=== PATIENT | male | born 1985 | race Caucasian/White ===

== ENCOUNTER 2025-01-14 10:35 | Outpatient (AMB) | payer OTHER, SELFPAY ==
[2025-01-14 10:43] VITALS: PULSE 116; O2SAT 99; BMI 27.3
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
--- OUTSIDE RECORDS SUMMARY | 2025-01-14 12:12 | XMS_ITS | Data Portability ---
Author Organization [facility] Address [address] [place] [address] Care Team Providers Care Instructor Adjunct Pharmacy Technician Name Role Phone EFREN BARNARD Primary Care Provider EFREN BARNARD Referring Provider [phone] Assessment Encounter Date Assessment Date Assessment LastModified by Organization Details LastModified Time 11/18/2020 11/18/2020 Assessment: 1. Left shoulder proximal biceps tendinitis 2. Left shoulder slap tear, subacromial bursitis /impingement Plan: we discussed today's clinical findings as well as treatment options moving forward at this point the majority of his pain seems to be related to his proximal biceps tendon we discussed moving forward with a proximal biceps tendon sheath injection which he elected to proceed with. We will see him back in six weeks to assess his response to this if he fails to respond to this well we could consider further injections or possibly updating his imaging his last MRI was in 2018. [email or web address] Not available 11/18/2020 13:48:52 Plan of Treatment Reminders Order Date Submit Date Provider Last Modified By Organization Details Last Modified Time Details Appointments None record ed. Lab None record ed. Referral None record ed. Procedures None record ed. Surgeries None record ed. Imaging None record ed. Medication Orders None record ed. Patient TargetsNo targets recorded. Patient InstructionsNo instructions recorded. Reason for Referral None Reported. Problems Name Problem SNOMED Code Status Onset Date Resolution Date Notes Provider Name and Address Organization Details Recorded Time Tendonitis of long head of biceps brachii of left shoulder Active 2020 Anupam Joe, [facility] [address] [facility], [place], [address], [facility] 13:49:17 Problem Notes None recorded. Procedures Surgical History Date Name Laterality Status Provider Name and Address Organization Details Recorded Time Test Interpretation completed POP Valadez [address] [place], [address], [facility] 11/18/2020 13:48:09 021 [facility] Inj/Asp Major Left completed POP Valadez [address] [place], [address], [facility] 11/18/2020 13:51:28 Imaging Results None recorded. Procedure Notes None recorded. Medical Equipment None Reported. Vitals Date Recorded Body height Body weight Provider Name and Address Organization Details Last Updated DateTime 07/19/2023 182.9 cm 211889.6 g Not Available Capsule 07/03 17:57:39 Social History None recorded. Functional Status None recorded. Mental Status None recorded. Family History Nothing Reported. Medical History No medical history recorded. Past Encounters Encounter ID Performer Location Encounter Start Date Encounter Closed Date Diagnosis/Indication Diagnosis SNOMED-CT Code Diagnosis ICD10 Code Diagnosis Note [id number] Tahir Hicks MD [facility] [address] [place] [address] 11/18/2020 09:51:48 11/19/2020 10:12:35 Tendonitis of long head of biceps brachii of left shoulder [id number] 66254 M75.22 Health Concerns Section Related Observation LastModified by Organization Detai ls LastModified Time None Recorded Concern Status LastModified by Organization Details LastModified Time None Recorded Advance Directives Directive None Recorded Payers Encounter Date Sequence Insurance Name Policy Number Policy Rutledge Covered Member ID Rutledge Member ID Guarantor Name 11/18/2020 1 [facility] [place] [id number] Hubert Scherer [id number] Hubert Scherer Notes Date Note Type Note Provider Name and Address Organization Details Recorded Time 11/18/2020 text/html Diagnosis:1. Lef t shoulder proximal biceps tendinitis2. Left shoulder slap tear, subacromial bursitis /impingement Previous Surgeries:1. Left shoulder arthroscopy with anterior labral repair 2016 outside orthopedic [place] Date of Injury: History of Present Illness:Hubert returns to clinic today for continued evaluation of his left shoulder we have seen him in the past he has done well with cortisone injections involving the subacromial space. More recently he was out shoveling a lot of snow this exacerbated his left shoulder pain he had x-rays at an outside facility which he brought with him today. He manages symptoms conservatively with oral anti-inflammatories and activity modification. Anupam Joe, [facility] [address] [facility] [facility], [place], [address], [facility] [place] 11/18/2020 13:52:06
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
--- OUTSIDE RECORDS SUMMARY | 2025-01-14 12:12 | XMS_ITS ---
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 APPOINTMENT 01/23/2025 11:00 [facility] 3 INPATIENT APPOINTMENT 01/25/2025 13:00 SPR PACT 3 PA INPATIENT APPOINTMENT 3. DIETARY RESTRICTIONS: none; healthy eating habits reinforced; fat/chol/sodium restricted 4. PHYSICAL ACTIVITY RESTRICTIONS: None (i.e., to tolerance). IX. Competence: No formal competency exam to handle VA funds was conducted at this time. /nahed/ FABIO ARMENTA DO Psychiatry Signed: 01/04/2025 10:39 Receipt Acknowledged By: 01/09/2025 08:23 /nahed/ JAIRO HOLLINGSWORTH NP NURSE PRACTITIONER FABIO ARMENTA [facility] Jan 02, 2025 02:16 PM PREVENTIVE MEDICINE NURSING NOTE: LOCAL TITLE: CLINICAL REMINDERS/NURSING STANDARD TITLE: PREVENTIVE MEDICINE NURSING NOTE DATE OF NOTE: JAN 02, 2025@14:16 ENTRY DATE: JAN 02, 2025@14:16:16 AUTHOR: KELVIN NASH COSIGNER: URGENCY: STATUS: COMPLETED Medication Reconciliation: Discharge JLV Link Data on this list may not be complete. Please check JLV. Allergies/ADRs (Tool #5) FACILITY ALLERGY/ADR -------- THEODORA LOPEZ [facility] PENICILLIN [facility] PENICILLIN [facility] WSN [facility] PENICILLIN Med Recon NoGlossary (Tool #1) INCLUDED IN THIS LIST: Alphabetical list of active outpatient prescriptions dispensed from this NH (local) and dispensed from another NH or [facility] facility (remote) as well as inpatient orders (local pending and active), local clinic medications, locally documented non-VA medications, and local prescriptions that have or been discontinued in the past 90 days. Non-VA Meds Last Documented On: Data not found NOTE The display of VA prescriptions dispensed from another NH or [facility] facility (remote) is limited to active outpatient prescription entries matched to National Drug File at the originating site and may not include some items such as investigational drugs, compounds, etc. NOT INCLUDED IN THIS LIST: Medications self-entered by the patient into personal health records (i.e. [employer]ek[employer]) are NOT included in this list. Non-VA medications documented outside this NH, remote inpatient orders (regardless of status) and remote clinic medications are NOT included in this list. The patient and provider must always discuss medications the patient is taking, regardless of where the medication was dispensed or obtained. OUTPT CLONIDINE HCL 0.1MG TAB (Status = Pending) TAKE ONE TABLET BY MOUTH NOW ANA given for opiate w/d in walkin Login Date: 01/02/25 Qty/Days Supply: 10/03 Refills Ordered: 0 INPT CLONIDINE HCL 0.1MG TAB (Status=Discontinued) 0.1MG BY MOUTH EVERY FOUR HOURS NEEDED FOR SYMPTOMS OF OPIATE WITHDRAWAL: HOLD FOR SBP LESS THAN 100 OR DBP LESS THAN 60 OR PULSE LESS THAN 60. Indication: OPIATE WITHDRAWAL SYMPTOMS <AUTO DC> INPT DICYCLOMINE HCL 10MG CAP (Status=Discontinued) 10MG BY MOUTH EVERY SIX HOURS NEEDED FOR GI SPASM Indication: FOR IRRITABLE COLON <AUTO DC> BCMA ORDER LAST ACTION: 01/02/25 13:20 GIVEN INPT IBUPROFEN 600MG TAB (Status=Discontinued) 600MG BY MOUTH EVERY SIX HOURS NEEDED FOR PAIN OR FEVER Indication: FOR PAIN <AUTO DC> BCMA ORDER LAST ACTION: 01/02/25 13:21 GIVEN INPT LOPERAMIDE HCL 2MG CAP (Status=Discontinued) 4MG BY MOUTH ONE TIME NEEDED AT ONSET OF DIARRHEA. Indication: OPIATE WITHDRAWAL DIARRHEA <AUTO DC> BCMA ORDER LAST ACTION: 01/02/25 13:20 HELD INPT LOPERAMIDE HCL 2MG CAP (Status=Discontinued) 2MG BY MOUTH EVERY TWO HOURS NEEDED AFTER EACH UNFORMED STOOL (after initial 4MG dose). DO NOT EXCEED 16MG PER DAY. Indication: OPIATE WITHDRAWAL DIARRHEA <AUTO DC> SUPPLIES On patient discharge, the following medication changes were made: Medications discontinued: Enter each medication (with dose and frequency) on separate lines: Noted above Medications changed: Enter each medication (with dose and frequency) on separate lines: Noted above New Medications: Enter each medication (with dose and frequency) on separate lines: Noted above /gabriel Nash RN Signed: 01/02/2025 14:17 KELVIN NASH [facility] Jan 02, 2025 02:13 PM NURSING NOTE: LOCAL TITLE: [facility] SKIN INSPECTION/ASSESSMENT STANDARD TITLE: NURSING NOTE DATE OF NOTE: JAN 02, 2025@14:13 ENTRY DATE: JAN 02, 2025@14:13:49 AUTHOR: KELVIN NASH EXP COSIGNER: URGENCY: STATUS: COMPLETED Assessment Type: INITIAL SKIN INSPECTION/ASSESSMENT SKIN INSPECTION: Skin Color: Usual for ethnicity Skin Temperature: Warm Skin Moisture: Normal Skin Turgor: Elastic (normal/immediate) Henri Skin Assessment: The patient's Henri Scale Score is 21. The patient is considered not at risk for development of pressure ulcers/injuries. Sensory perception -- ability to respond meaningfully to pressure-related discomfort No impairment. Moisture -- degree to which skin is exposed to moisture Rarely moist. Activity -- ability to change and control body position Walks frequently. Mobility -- ability to change and control body position No limitation. Nutrition -- usual food intake patterns Excellent. Friction and shear Problem. INTERVENTIONS: The pressure injury interventions were not needed - patient/resident is not at risk. /gabriel Nash RN Signed: 01/02/2025 14:14 KELVIN NASH [facility] Jan 02, 2025 02:12 PM NURSING INPATIENT ADMISSION EVALUATION NOTE: LOCAL TITLE: ADMIT 2 PHYSICAL EXAM NOTE/NSG STANDARD TITLE: NURSING INPATIENT ADMISSION EVALUATION NOTE DATE OF NOTE: JAN 02, 2025@14:12 ENTRY DATE: JAN 02, 2025@14:12:54 AUTHOR: KELVIN NASH EXP COSIGNER: URGENCY: STATUS: COMPLETED ACUTE/CHRONIC CARE DYSPHAGIA SCREEN Part 4 - Oral Screen - check all that apply To be Completed on all Patients/Residents within 24 hours of Admission. Has own natural teeth Note specific assistance if an required: Mouth Moist Height: 72 in [182.9 cm] (01/02/2025 09:48) Weight: 198 lb [89.81 kg] (01/02/2025 09:48) BMI: 26.9 Vitals Enter at: Jan 02, 2025@09:48:46 BP: 113/72 P: 89 R: 16 T: 98.6 Does the patient have any visual or hearing impairment No [ ] visually impairment [ ] hearing impairment Does the patient utilize any assistive devices No [ ] Glasses [ ] contacts [ ] Hearing Aids Does the patient have them with them for use Does the Patient exhibit any following: [ ]Shortness of breath, [ ]Cough [ ]Sputum [ ]Night Sweats [ ]Chest pain [ ] Palpitations Are the lungs clear to auscultation? Are heart sounds easily heard? Are there any additional heart sounds? Is capillary refill less than 3 seconds? Are the radial pulses present? ELIMINATION PATTERN LAST BM: Usual Bowel Pattern: No Problem Usual Urinary Pattern Abdomen: Symmetrical, Soft Bowel Sounds: Mobility Assessment: Paralysis Weakness Amputation Devices ROM Gait Balance Muscle mass/strength Describe: ANY RECENT DECLINE IN PRIOR LEVEL OF FUNCTIONING MUST INITIATE A REQUEST FOR REHABILITATION SERVICES Did the patient come from a shelter home/skilled nursing/ assisted living? No Is the patient going to a shelter home/skilled nursing/assisted living? No Is the patient completely independent with activities of daily living? (If no, initiate weekly ADL) Yes IM - Immunizations No data available SHF - Health Factor Select No data available for: V1-Influenza Vaccine GIven At Other Site V1-Influenza Vaccine Refused Inactivate Influenza Immunization V1-Allergy To Eggs V1-Allergy To Influenza Vaccine V1-Current Febrile Illness V1-Pneumovax Refused Pneumovax GIven At Other Site Inactivate Pneumococcal Vaccine V1-Allergy To Pneumovax TB Status V1-Immunization Contraindication V1-VAccine Refusal ST - Skin Tests No data available SCL2 - T-SPOT LAB TEST No data available for: U-[id number] (o) T-SPOT-PNLA T-SPOT-PNLB N-[id number] M-[id number]-[id number] /nahed/ Kelvin Nash RN Signed: 01/02/2025 14:13 KELVIN NASH [facility] [place] [facility] Jan 02, 2025 02:02 PM MENTAL HEALTH DIAGNOSTIC STUDY NOTE: LOCAL TITLE: MENTAL HEALTH DIAGNOSTIC STUDY STANDARD TITLE: MENTAL HEALTH DIAGNOSTIC STUDY NOTE DATE OF NOTE: JAN 02, 2025@14:02:27 ENTRY DATE: JAN 02, 2025@14:02:27 AUTHOR: OLY YUAN EXP COSIGNER: URGENCY: STATUS: COMPLETED Brief Addiction Monitor - Revised Date Given: 01/02/2025 Clinician: Oly Yuan Location: [address] [place]: AshleyHubert, Jr SSN: [id number] : Jan ([birth year]) Gender: Male Clinical Subscales Use: 30 Items 4, 5, 6. A high score indicates more use, range is 0 to 90. If a patient scores a 1 or greater, it calls for further assessment and clinical attention, e.g., consider addition/change of pharmacotherapy or psychosocial intervention. Risk Factors: 119 Items 1, 2, 3, 8, 11, 15. A high score indicates increased risk, range is 0 to 180. For subscale scores, items with ordinal response options (0-4) were converted to contribute proportionately consistent with items on days of use (0-30). Clinicians are encouraged to consider scores on individual Risk items in offering interventions as indicated during initial treatment planning and following re-assessment. Protective Factors: 108 Items 9, 10, 12, 13, 14, 16. A high score indicates greater protective factors, range is 0 to 180. For subscale scores, items with ordinal response options (0-4) were converted to contribute proportionately consistent with items on days of use (0-30). Clinicians are encouraged to consider scores on individual Protective items in offering interventions as indicated during initial treatment planning and following re-assessment. Questions and Answers A. Date of administration: 01/02/2025 B. Method of administration: Self Report 1. In the past 30 days, how would you say your physical health has been? Fair 2. In the past 30 days, how many nights did you have trouble falling asleep or staying asleep? 30 3. In the past 30 days, how many days have you felt depressed, anxious, angry or very upset throughout most of the day? 15 4. In the past 30 days, how many days did you drink ANY alcohol? 0 5. In the past 30 days, how many days did you have at least 5 drinks (if you are a man) or at least 4 drinks (if you are a woman)? [One drink is considered one shot of hard liquor (1.5 oz.) or 12-ounce can/bottle of beer or 5-ounce glass of wine.] Not asked (due to responses to other questions) 6. In the past 30 days, how many days did you use any illegal or street drugs or abuse any prescription medications? 30 7A. Marijuana (cannabis, pot, weed)? 0 7B. Sedatives and/or Tranquilizers (benzos, Valium, Xanax, Ativan, Ambien, barbs, Phenobarbital, downers, etc.)? 0 7C. Cocaine and/or Crack? 30 7D. Other Stimulants (amphetamine, methamphetamine, Dexedrine, Ritalin, Adderall, speed, crystal meth, ice, etc.)? 0 7E. Opiates (Heroin, Morphine, Dilaudid, Demerol, Oxycontin, oxy, codeine (Tylenol 2,3,4), Percocet, Vicodin, Fentanyl, etc.)? 29 7F. Inhalants (glues, adhesives, nail burkinan remover, paint thinner, etc.)? 0 7G. Other drugs (steroids, non-prescription sleep and diet pills, Benadryl, Ephedra, other [id number] or unknown medications)? 0 8. In the past 30 days, how much were you bothered by cravings or urges to drink alcohol or use drugs? Not at all 9. How confident are you that you will NOT use alcohol and drugs in the next 30 days? Moderately 10. In the past 30 days, how many days did you attend self-help meetings like AA or NA to support your recovery? 10 11. In the past 30 days, how many days were you in any situations or with any people that might put you at an increased risk for using alcohol or drugs (i.e., around risky people, places or things )? 30 12. Does your religious or spirituality help support your recovery? Slightly 13. In the past 30 days, how many days did you spend much of the time at work, school, or doing volunteer work? 15 14. Do you have enough income (from legal sources) to pay for necessities such as housing, transportation, food and clothing for yourself and your dependents? Yes 15. In the past 30 days, how much have you been bothered by arguments or problems getting along with any family members or friends? Considerably 16. In the past 30 days, how many days did you contact or spend time with any family members or friends who are supportive of your recovery? 30 17. How satisfied are you with your progress toward achieving your recovery goals? Moderately Information contained in this note is based on a self-report assessment and is not sufficient to use alone for diagnostic purposes. Assessment results should be verified for accuracy and used in conjunction with other diagnostic activities and procedures. /nahed/ OLY YUAN BSN REGISTERED NURSE Signed: 01/02/2025 14:02 [facility] 02, [facility]25 01:55 PM MENTAL HEALTH DIAGNOSTIC STUDY NOTE: LOCAL TITLE: MENTAL HEALTH DIAGNOSTIC STUDY STANDARD TITLE: MENTAL HEALTH DIAGNOSTIC STUDY NOTE DATE OF NOTE: JAN 02, 2025@13:55:49 ENTRY DATE: JAN 02, 2025@13:55:49 AUTHOR: OLY YUAN EXP COSIGNER: URGENCY: STATUS: COMPLETED Behavior and Symptom Identification Scale - 24 Date Given: 01/02/2025 Clinician: Oly Yuan Location: [address] : Hubert Ramirez Jr SSN: [id number] : Jan ([birth year]) Gender: Male BASIS-24 Scales Depression and Functioning 1.52 Interpersonal Problems 1.10 Psychotic Symptoms 0.30 Alcohol/Drug Use 2.92 Emotional Lability 1.22 Self-Harm 0.00 Overall 1.30 Note: Lower scores indicate less frequent symptoms or difficulty whereas higher scores reflect more serious symptoms or difficulty. Range of scores: 0 to 4. Questions and Answers 1. Managing your day-to-day life? A little difficult 2. Coping with problems in your life? Moderate difficulty 3. Concentrating? A little difficult 4. Get along with people in your family? Most of the time 5. Get along with people outside your family? Most of the time 6. Get along well in social situations? Most of the time 7. Feel close to another person? Most of the time 8. Feel like you had someone to turn to if you needed help? Half of the time 9. Feel confident in yourself? Half of the time 10. Feel sad or depressed? Half of the time 11. Think about ending your life? None of the time 12. Feel nervous? A little of the time 13. Have thoughts racing through your head? Often 14. Think you had special torres? Never 15. Hear voices or see things? Never 16. Think people were watching you? Never 17. Think people were against you? Rarely 18. Have mood swings? Rarely 19. Feel short-tempered? Rarely 20. Think about hurting yourself? Never 21. Did you have an urge to drink alcohol or take street drugs? Often 22. Did anyone talk to you about your drinking or drug use? Sometimes 23. Did you try to hide your drinking or drug use? Always 24. Did you have problems from your drinking or drug use? Often Information contained in this note is based on a self-report assessment and is not sufficient to use alone for diagnostic purposes. Assessment results should be verified for accuracy and used in conjunction with other diagnostic activities and procedures. Copyright (c) 2002 [facility] /nahed/ OLY YUAN BSN REGISTERED NURSE Signed: 01/02/2025 14:02 OLY YUAN [facility] [place] [facility] Jan 02, 2025 01:26 PM SECLUSION RESTRAINT NOTE: LOCAL TITLE: COPING TOOL NOTE STANDARD TITLE: SECLUSION RESTRAINT NOTE DATE OF NOTE: JAN 02, 2025@13:26 ENTRY DATE: JAN 02, 2025@13:26:29 AUTHOR: OLY YUAN EXP COSIGNER: URGENCY: STATUS: COMPLETED 4L PERSONAL SAFETY TOOL The Patient's answers are being transcribed into the record, the following safety tool has been administered to the patient in person or on paper. NAME: ESPINOZAHUBERT SHARMA JR Date: Jan Please take some time to complete the following questionnaire. This information will help us to better understand your individual needs and to provide you with the best possible care. TRIGGERS: What are some of the things that make you angry, very upset or cause you to go into crisis? (check all that apply) WARNING SIGNS: What are your warning signs when you feel you may lose control? (check all that apply) Pacing, Sweating, Swearing CRISIS PREVENTION STRATEGIES: It is helpful for us to be aware of things that help you to feel better when you are having a hard time. Please indicate if any of the following have ever worked for you. Pacing in the halls, Darkened room, Warm or cold drink, Medication, Aromatherapy, Rocking chair/glider, Being outdoors Watching tv (what?) MEDICAL CONDITIONS: Do you have any physical conditions, disabilities or medical problems such as asthma, high blood pressure, back problems, etc., that we should be aware of when caring for you during an emergency situation? No Explain if yes: TRAUMA HISTORY: Do you have a history of sexual abuse or other type of trauma in childhood?No Or as an adult? No Is abuse occurring now? No What type(s) of abuse or trauma have you experienced? Describe briefly if you are able to: DO YOU HAVE A HISTORY OF: RESTRAINT: Have you ever been restrained? No Have you ever been given medication as an injection that was forced upon you? No IN EXTREME EMERGENCIES: How can you help us avoid restraint? In emergencies, some things that are utilized include the below. Please choose what might be helpful to you, should the need occur. Quiet room, Your room MEDICATIONS: We may be required to give you medications if other measures do not help you to remain safe and in control. In this case, we would like to know what medications have been especially helpful to you. Please describe: Are there any medications that are not helpful? Is there anything else that would make your hospitalization better? Patient Signature date: Staff signature date: If not completed on admit, why? /es/ OLY ALMANZA REGISTERED NURSE Signed: 01/02/2025 13:46 OLY YUAN [facility] [place] [facility] Jan 02, 2025 01:22 PM ADDENDUM: LOCAL TITLE: Addendum STANDARD TITLE: ADDENDUM DATE OF NOTE: JAN 02, 2025@13:22 ENTRY DATE: JAN 02, 2025@14:32:01 AUTHOR: OLY YUAN COSIGNER: URGENCY: STATUS: COMPLETED Error on documentation. Method of arrival to unit. ambulated to unit did not come on a stretcher. /gabriel ALMANZA REGISTERED NURSE Signed: 01/02/2025 14:36 Receipt Acknowledged By: 01/02/2025 14:59 /gabriel Nash RN --- Original Document --- 01/02/25 CONSENT TO SEARCH FOR HAZARDOUS ITEMS NOTE: Consent to Search for admission searched in search room prior to entrance to cano 4 lower. All clothing removed, to include under garments, socks and T shirt. Visual inspection of [place]'s body and physical search of clothing completed for hazardous items. [place] changed into [facility] and all clothing was washed prior to re-issue to [place]. Arrival Date & Time: Jan@13:00 Method: Via Stretcher Contraband Search Date & Time: Jan@12:55 [place] asked the following questions during search: Do you have any weapons? No Do you have any drugs on your person prescriptions , non- prescriptions or illicit? No Do you have any items on you person that you plan to use to hurt yourself or others with such as: Razors, other metallic objects, hard plastic objects or any other item that could be considered as a sharp or hazardous item used to inflict harm? No /gabriel [place]ING[place] REGISTERED NURSE Signed: 01/02/2025 13:23 OLY YUAN [facility] Jan 02, 2025 01:10 PM MENTAL HEALTH DIAGNOSTIC STUDY NOTE: LOCAL TITLE: COWS NURSING NOTE STANDARD TITLE: MENTAL HEALTH DIAGNOSTIC STUDY NOTE DATE OF NOTE: JAN 02, 2025@13:10 ENTRY DATE: JAN 02, 2025@13:10:48 AUTHOR: TYLER DUMONT EXP COSIGNER: URGENCY: STATUS: COMPLETED CLINICAL OPIATE WITHDRAWAL SCALE (COWS) COWS Scale: 8 5-12 Mild withdrawal 13-24 Moderate 25-36 Moderately severe 37+ Severe withdrawal 1. Resting Pulse Rate: Measured after patient is sitting or lying for one minute. Pulse rate 80 or below (Score 0) 2. Sweating: Over past half-hour, not accounted for by room temperature or patient activity. Subjective report of chills or flushing (Score 1) 3. Restlessness: Observation during assessment. Reports difficulty sifting still, but is able to do so (Score 1) 4. Pupil size. Pupils possibly larger than normal for room light (Score 1) 5. Bone or joint aches: If patient was having pain previously, only the additional component attributed to opiates withdrawal is scored. Mild diffuse discomfort (Score 1) 6. Runny nose or tearing: Not accounted for by cold symptoms or allergies. Nasal stuffiness or unusually moist eyes (Score 1) 7. GI upset: Over last half-hour. Stomach cramps (Score 1) 8. Tremor: Observation of outstretched hands. Tremor can be felt, but not observed (Score 1) 9. Yawning: Observation during assessment. No yawning (Score 0) 10. Anxiety or Irritability. Patient reports increasing irritability or anxiousness (Score 1) 11. Gooseflesh skin. Skin is smooth (Score 0) /gabriel DUMONT RN Registered Nurse Signed: 01/02/2025 14:56 TYLER DUMONTL WSN [facility] Jan 02, 2025 12:55 PM NURSING ADMINISTRATIVE NOTE: LOCAL TITLE: CONSENT TO SEARCH FOR HAZARDOUS ITEMS NOTE STANDARD TITLE: NURSING ADMINISTRATIVE NOTE DATE OF NOTE: JAN 02, 2025@12:55 ENTRY DATE: JAN 02, 2025@13:22:37 AUTHOR: OLY YUAN EXP COSIGNER: URGENCY: STATUS: COMPLETED CONSENT TO SEARCH FOR HAZARDOUS ITEMS NOTE Has ADDENDA Consent to Search for admission searched in search room prior to entrance to cano 4 lower. All clothing removed, to include under garments, socks and T shirt. Visual inspection of [place]'s body and physical search of clothing completed for hazardous items. [place] changed into [facility] and all clothing was washed prior to re-issue to . Arrival Date & Time: Jan@13:00 Method: Via Stretcher Contraband Search Date & Time: Jan@12:55 [place] asked the following questions during search: Do you have any weapons? No Do you have any drugs on your person prescriptions , non- prescriptions or illicit? No Do you have any items on you person that you plan to use to hurt yourself or others with such as: Razors, other metallic objects, hard plastic objects or any other item that could be considered as a sharp or hazardous item used to inflict harm? No /nahed/ OLY ALMANZA REGISTERED NURSE Signed: 01/02/2025 13:23 01/02/2025 ADDENDUM STATUS: COMPLETED Error on documentation. Method of arrival to unit. ambulated to unit [place] did not come on a stretcher. /nahed/ OLY ALMANZA REGISTERED NURSE Signed: 01/02/2025 14:36 Receipt Acknowledged By: * AWAITING SIGNATURE * KELVIN NASH [facility]EN K [facility]
--- OUTSIDE RECORDS SUMMARY | 2025-01-14 12:12 | XMS_ITS ---
Author Name [facility] [place] [facility] [place] Address [address] [place] [address] Support Name Relationship Address Phone ESPINOZAZACHARY ROCAEL Next of Kin [address] [place] [phone] ROCAEL RAMIREZ Emergency Contact [address] [place], [place] [phone] Insurance Providers: All historical and current Section [...] Patient's Relationship to Policy [place] BCBS OF [facility] February 07, 2017 [id number] [phone] MARCIE RAMIREZ PATIENT BC OF [facility] PREFERRED PROVIDER ORGANIZAT ION (PPO) MACIEL GARNICA [facility] February 07, 2017 [id number] MARCIE RAMIREZ PATIENT Selected Encounter This section includes the information on record at [place] for the Encounter. Date/Time Encounter Type Encounter Description Reason Provider Source Jan 02, 2025 01:54 PM [facility] IP/OBS [facility] - IND ICD-10-CM F14.10 Cocaine abuse, uncomplicated FABIO ARMENTA I[facility] Encounter Template Text not used by [facility] Assessments - Encounter Diagnoses This section includes the primary and secondary diagnoses documented for the Encounter. Date/Time Primary/Secondary Diagnosis Diagnosis Name Provider Source Jan 02, 2025 02:07 PM PRIMARY Cocaine abuse, uncomplicated FABIO ARMENTA [facility] Jan 02, 2025 02:07 PM SECONDARY Opioid dependence, uncomplicated FABIO ARMENTA [facility] Plan of Treatment: Future Appointments (+ 6 months) and Future Tests (+/- 45 days) The Plan of Treatment section includes future care activities for the patient from all [place] [facility]. This section includes future appointments and future orders which are active, pending or scheduled. Future Appointments This section includes appointments that were scheduled to occur 6 months from the date of the Encounter, up to a maximum of 20 appointments. The data comes from all [place] treatment facilities. Appointment Date/Time Appointment Type Appointme nt Facility Name Jan 07, 2025 11:00 AM AMBULATORY - PSYCHIATRY [facility] Jan 25, 2025 01:00 PM AMBULATORY - MEDICINE [facility] Active, Pending, and Scheduled Orders This section includes a listing of several types of active, pending, and scheduled orders, including clinic medications orders, diagnostic test orders, procedure orders and consult orders; where the start date of the order is 45 days before the date of the Encounter or 45 days after the date of theEncounter. The data comes from all [place] treatment facilities. Test Date/Time Test Type Test Details Facility Name Jan 02, 2025 01:54 PM Consult Order [facility]/SP[facility] OUTPT Cons Injection Specialist's Choice [facility] Jan 02, 2025 01:58 PM Consult Order BHIP PSYCH IATRIC MEDICATION/SOPC OUTPT Cons Injection Specialist's Choice [facility] Jan 02, 2025 01:58 PM Consult Order BH PSYCH OTHERAPY/SOPC OUTPT Cons Injection Specialist's Choice [facility] Lab Results: +/- 30 days of the encounter This section includes the Chemistry and Hematology Lab Results on record with [place] for the patient. Radiology Reports and Pathology Reports are provided separately, in subsequent sections. Lab Results This section contains the Chemistry/Hematology Results that were resulted 30 days before or 30 daysafter the date of the Encounter. Date/Time Source Result Type Result - Unit Interpretation Reference Range Specimen Type Comment Jan 02, 2025 10:23 AM [facility] CBC AND DIFF (AUTO) BLOOD Specimen Type: BLOOD No comment entered. Ordering Provider: FRED NGUYEN Report Released Date/Time: Jan 02, 2025 10:08 AM Reporting Lab: [facility] [address] [facility] [facility] [address] Performing Lab: [facility] [address] [facility] [address] WBC 11.14 10*3/uL H 4.50-11.00 RBC 5.59 [...] 10*3/uL 0.00-0.00 Jan 02, 2025 10:23 AM [facility] BASIC METABOLIC PANEL (non-fasting) SERUM Spe cimen Type: SERUM No comment entered. Ordering Provider: FRED NGUYEN Report Released Date/Time: Jan 02, 2025 10:08 AM Reporting Lab: [facility] [address] [facility] [address] Performing Lab: [facility] [address] [address] UREA NITROGEN 10 mg/dL 7-25 GLUCOSE 96 mg/dL 65-100 SODIUM 139 mmol/L 135-145 POTASSIUM 4.0 mmol/L 3.5-5.0 CHLORIDE 106 mmol/L 100-110 CO2 23 meq/L 20-30 CALCIUM 9.0 mg/dL 8.5-10.2 CREATININE, Serum 0.79 mg/dL 0.50-1.40 eGFR(CKD-EPI 2020) >90 mL/min >60 Jan 02, 2025 10:23 AM [facility] MAGNESIUM SERUM Specimen Type: SERUM No comment entered. Ordering Provider: FRED NGUYEN Report Released Date/Time: Jan 02, 2025 10:08 AM Reporting Lab: [facility] [address] Performing Lab: [facility] [address] MAGNESIUM 1.9 mg/dL 1.6-2.6 Jan 02, 2025 10:23 AM [facility] ETHANOL PLASMA Specimen Type: PLASM A No comment entered. Ordering Provider: FRED NGUYEN Report Released Date/Time: Jan 02, 2025 10:08 AM Reporting Lab: [facility] [address] [facility] [address] Performing Lab: [facility] [address] [address] ETHANOL <10 mg/dL <10 is Negative Jan 02, 2025 10:23 AM [facility] LIVER FUNCTION SERUM Specimen Type: SERUM No comment entered. Ordering Provider: FRED NGUYEN Report Released Date/Time: Jan 02, 2025 10:08 AM Reporting Lab: [facility] [address] Performing Lab: [address] [address] PROTEIN,TOTAL 7.2 g/dL 6.0-8.3 ALBUMIN 3.9 g/dL 3.5-5.0 ALKALINE PHOSPHATASE 83 U/L 40-150 AST 17 U/L 5-34 ALT 15 U/L BILIRUBIN, TOTAL 0.6 mg/dL 0.2-1.2 Jan 02, 2025 10:23 AM [facility] DRUGS OF ABUSE URINE Specimen Type: URINE [...] Jan 02, 2025 10:08 AM Reporting Lab: [address] [address] Performing Lab: [address] [address] AMPHETAMINES SCREEN NONE-DETECTED None-Detected, Cutoff = 1000 [...] H 1.003-1.020 Jan 02, 2025 10:23 AM [facility] COVID-19 SCREENING PANEL (CEPHEID) NASOPHARYNX Spec imen Type: NASOPHARYNX Comment: This test is authorized for emergency use only. False negative results may occur if virus is present at levels below the analytical limit of detection.Negative results do not preclude SARS-CoV-2 infection and should not be used as the sole basis for treatment or other patient management decisions.Cepheid FLUVID: HCPs: https://www.fda.gov/media/833998/download. Patients: https://www.fda.gov/media/158618/download Ordering Provider: FRED NGUYEN Report Released Date/Time: Jan 02, 2025 10:08 AM Reporting Lab: [address] [address] Performing Lab: [address] [address] COVID-19 SCR (CEPHEID) NEGATIVE Negative Vital Signs: All taken on the encounter date This section contains inpatient and outpatient Vital Signs collected on the date of the Encounter. Date/Time Temperature Pulse Blood Pressure Respiratory Rate SP02 Pain Height Weight Body Mass Index Source Jan 02, 2025 02:13 PM 3 [facility] Jan 02, 2025 01:21 PM 6 [facility] Jan 02, 2025 09:48 AM 98.6 89 113/72 16 98 0 72 198 27 [facility] Advance Directives: All historical and current Section Date Range: From patient's date of to the date document was created. This section includes ALL of a patient's completed or amended [place] Advance and Rescinded Directives. The entries below indicate that a directive exists for the patient, but an actual copy is not included with this document. The data comes from all [place] facilities. Date Advance Directives Provider Source Jan 02, 2025 ADVANCE DIRECTIVE DISCUSSION PEGGY REARDON [facility] Encounter Notes: All associated encounter notes This section contains the clinical notes associated to the Encounter. Date/Time Encounter Note(s) Provider Source Jan 02, 2025 02:09 PM MEDICATION MGT NOT E: LOCAL TITLE: MEDICATION RECONCILIATION STANDARD TITLE: MEDICATION MGT NOTE DATE OF NOTE: JAN 02, 2025@14:09 ENTRY DATE: JAN 02, 2025@14:09:22 AUTHOR: FABIO ARMENTA EXP COSIGNER: URGENCY: STATUS: COMPLETED Medication Reconciliation: Discharge JLV Link Data on this list may not be complete. Please check JLV. Allergies/ADRs (Tool #5) FACILITY ALLERGY/ADR -------- THEODORA LOPEZ [facility] PENICILLIN [facility] PENICILLIN [place] [facility] [facility] PENICILLIN Med [facility] NoGlossencino (Tool #1) INCLUDED IN THIS LIST: Alphabetical list of active outpatient prescriptions dispensed from this [place] (local) and dispensed from another [place] or [facility] facility (remote) as well as inpatient orders (local pending and active), local clinic medications, locally documented non-VA medications, and local prescriptions that have or been discontinued in the past 90 days. Non-VA Meds Last Documented On: Data not found NOTE The display of VA prescriptions dispensed from another [place] or [facility] facility (remote) is limited to active outpatient prescription entries matched to National Drug File at the originating site and may not include some items such as investigational drugs, compounds, etc. NOT INCLUDED IN THIS LIST: Medications self-entered by the patient into personal health records (i.e. [facility]) are NOT included in this list. Non-VA medications documented outside this [place], remote inpatient orders (regardless of status) and [...] Ordered: 0 INPT CLONIDINE HCL 0.1MG TAB (Status=Active) 0.1MG BY MOUTH EVERY FOUR HOURS NEEDED FOR SYMPTOMS OF OPIATE WITHDRAWAL: HOLD FOR SBP LESS THAN 100 OR DBP LESS THAN 60 OR PULSE LESS THAN 60. Indication: OPIATE WITHDRAWAL SYMPTOMS INPT DICYCLOMINE HCL 10MG CAP (Status=Active) 10MG BY MOUTH EVERY SIX HOURS NEEDED FOR GI SPASM Indication: FOR IRRITABLE COLON [facility] ORDER LAST ACTION: 01/02/25 13:20 GIVEN INPT IBUPROFEN 600MG TAB (Status=Active) 600MG BY MOUTH EVERY SIX HOURS NEEDED FOR PAIN OR FEVER Indication: FOR PAIN [facility] ORDER LAST ACTION: 01/02/25 13:21 GIVEN INPT LOPERAMIDE HCL 2MG CAP (Status=Active) 4MG BY MOUTH ONE TIME NEEDED AT ONSET OF DIARRHEA. Indication: OPIATE WITHDRAWAL DIARRHEA BCMA ORDER LAST ACTION: 01/02/25 13:20 HELD INPT LOPERAMIDE HCL 2MG CAP (Status=Active) 2MG BY MOUTH EVERY TWO HOURS NEEDED AFTER EACH UNFORMED STOOL (after initial 4MG dose). DO NOT EXCEED 16MG PER DAY. Indication: OPIATE WITHDRAWAL DIARRHEA SUPPLIES On patient discharge, the following medication changes were made: Medications changed: Enter each medication (with dose and frequency) on separate lines: no medication changes made /nahed/ FABIO ARMENTA DO Psychiatry Signed: 01/02/2025 14:10 FABIO ARMENTA [place] [facility] [place] [facility] Jan 02, 2025 02:07 PM PHYSICIAN DISCHARG E NOTE: LOCAL TITLE: DISCHARGE INSTRUCTIONS STANDARD TITLE: PHYSICIAN DISCHARGE NOTE DATE OF NOTE: JAN 02, 2025@14:07 ENTRY DATE: JAN 02, 2025@14:07:20 AUTHOR: FABIO ARMENTA EXP COSIGNER: URGENCY: STATUS: COMPLETED Date of Admission: Jan 12:33 Date of Discharge: 01/02/25 Type of Discharge: REGULAR Patient Allergies: PENICILLIN 1. Diagnoses and date to be followed on outpatient services:Opioid use Disorder, severe Cocaine Use Disorder, severe 2. Suggested plan for follow-up (including education follow up):Please see SW discharge instructions 3. Discharge medications and instructions: (List of medications to be taken upon discharge from this hospitalization): choses to discharge without medications at this time. Narcan declined. Suboxone to be initiated either at community detox or outpatient. 4. Discharge dietary instructions (Check one):No Restrictions 5. Physical activity limitations (Check one):No Restrictions 6. Other (Include employment status): 7. DISCHARGE TOBACCO USE COUNSELING TREATMENT: is a current tobacco user No [If yes, answer 2 questions below] Gu[place]on referred for evidenced based tobacco use cessation counseling treatment with a clinician: [ ] Yes (enter consult and get appointment) [ ] [place] declined referral offered FDA approved medications for tobacco use cessation? [ ] Yes (enter order) [ ] declined medication 8. DISCHARGE ALCOHOL OR SUBSTANCE USE TREATMENT: Prior to admission, was abusing alcohol or other substances opiates, cocaine, other stimulants or hallucinogens, etc)? Yes [If yes, answer 2 questions below] Guymon has been offered medication treatment for addiction and [ ] accepted treatment (see discharge medication orders) [X] Medication treatment either contraindicated or not warranted at this time offered addiction treatment [X] Guymon accepted treatment (see discharge appointments) [ ] [place] refused treatment Patient Identification: Name: TICO RAMIREZ JR ADDRESS at time of discharge: SOCIAL SECURITY NUMBER: [id number] Phone number where patient can be reached: For questions about these instructions you can call TELEPHONE ASSISTANCE at [phone] or extension [phone] If you are experiencing an emotional crisis, feeling suicidal, or having any troubling,self-destructive, or violent impulses-please know that the Veterans Crisis Line is available 25/04. Please contact the Veterans Crisis Line at any time by: Phone- Dial [phone], then press 1 Text- [phone] Website- Chat online at [email or web address] I have received and understand my discharge instructions Signature of Patient: Date: JAN 02, 2025 VA Form [id number] Oct 1989 /es/ FABIO ARMENTA DO Psychiatry Signed: 01/02/2025 14:09 FABIO ARMENTA [place] [facility] [place] [facility] Jan 02, 2025 01:54 PM PSYCHIATRY NOTE: LOCAL TITLE: PSYCHIATRY NOTE STANDARD TITLE: PSYCHIATRY NOTE DATE OF NOTE: JAN 02, 2025@13:54 ENTRY DATE: JAN 02, 2025@13:54:27 AUTHOR: FABIO ARMENTA EXP COSIGNER: URGENCY: STATUS: COMPLETED >Pt examined; Chart reviewed. Case discussed during Treatment Team rounds. >Records notable for staff observations, as recorded: nursing informed this appeals writer that wished to leave due to not wishing to be on a detox unit that was also a psychiatric unit. SUBJECTIVE: TICO RAMIREZ JR was seen today for daily evaluation with ELLIE Esquivel. stated that he not realize that this [...] from here his wishes to go to [facility], which she has done in the past. I discussed with him the importance of being off opiates for 24 to 48 hours, or be in moderate withdrawal prior to starting Suboxone, which she is understanding of. Melchor wishes for outpatient appointments through the [facility]. He denies any other substance use. He [...] agrees for discharge 40 on the workday. Melchor reports that he has his own ride. Suicidal/ Homicidal risk: none evident; denies recent plan/impulses/inten Medication Side effects: none evident or reported Education: The risks and benefits of new medications were reviewed with the patient, including common and serious side effects, and questions were answered. Past psychiatric history: Melchor does not appear to have any admissions through the [facility], but reports multiple detoxes, IOP's and rehabs through the community. He has been on methadone in the past, had recently weaned himself off Sublocade, though wishes to get back on it in the future. He denies having any treatment providers through the [place] and wishes to transition his care here. Denies any prior suicide attempts, history of suicidal ideation or unintentional overdoses. Denies any prior mental health history. Social history: Melchor is going to school in [employer], and is doing work via that program. He reports having a and child and lives in [place] in his own house. He denies any [...] L Neut %: 69.0 Lymph %: 21.3 Hughes %: 6.8 Eos %: 2.0 Baso %: 0.7 Neut, Abs: 7.69 H Lymph, Abs: 2.37 Hughes, Abs: 0.76 Eos, Abs: 0.22 Baso, Abs: [...] grossly intact Fund of Knowledge: appropriate Language: french ASSESSMENT: 39 WHITE MALE with a history of: Active problems - Computerized Problem List is the source for the followin. Opioid use disorder 2. Cocaine abuse -- TREATMENT PLAN/ DISCUSSION/ RATIONALE: 1. Discharge as he wishes for discharge, and is not an acute safety risk and never presented as acute safety risk. Guymon is declining Narcan and plans to transition to a community detox center after discharge today. 2. PSYCHIATRIC CONDITIONS: name of condition: Opiate use disorder, severe Cocaine use disorder, severe Substance-induced mood disorder > PLAN: Guymon will discharge without any medications per his preference, as he does not wish to induce on Suboxone here. Social work will work to transition his care to be able provide follow-up appointments. 3. VIOLENCE RISK to self or others > Status: low > Plan to address suicide prevention plan, // FABIO ARMENTA DO Psychiatry Signed: 01/02/2025 14:07 FABIO ARMENTA [place] [facility]
--- OUTSIDE RECORDS SUMMARY | 2025-01-14 12:13 | XMS_ITS ---
Author Name [facility] [place] Address [address] [place] [address] Support Name Relationship Address Phone ESPINOZAZACHARY ROCAEL Next of Kin [address], [place] [phone] ROCAEL RAMIREZ Emergency Contact [address] [place], [place] [phone] Insurance Providers: All historical and current Section [...] Patient's Relationship to Policy Rutledge BCBS OF [facility] DEDUCTIBL HEALTH PLAN [facility] February 07, 2017 [id number] MARCIE RAMIREZ PATIENT BCBS OF [facility] PREFERRED PROVIDER ORGANIZAT ION (PPO) MACIEL GARNICA [facility] February 07, 2017 [id number] MARCIE RAMIREZ PATIENT Selected Encounter This section includes the information on record at [place] for the Encounter. Date/Time Encounter Type Encounter Description Reason Provider Source Jan 02, 2025 09:30 AM CRISIS INTERVEN S[facility], 15 [facility] - IND ICD-10-CM F11.20 Opioid dependence, uncomplicated LUCY BRASWELL IHMisha Encounter Template Text not used by [facility] Assessments - Encounter Diagnoses This section includes the primary and secondary diagnoses documented for the Encounter. Date/Time Primary/Secondary Diagnosis Diagnosis Name Provider Source Jan 02, 2025 10:02 AM PRIMARY Opioid dependence, uncomplicated LUCY BRASWELL [facility] Jan 02, 2025 10:02 AM SECONDARY Cocaine dependence, uncomplicated LUCY BRASWELL [facility] Plan of Treatment: Future Appointments (+ 6 months) and Future Tests (+/- 45 days) The Plan of Treatment section includes future care activities for the patient from all [place] [facility]. This section includes future appointments and future orders which are active, pending or scheduled. Future Appointments This section includes appointments that were scheduled to occur 6 months from the date of the Encounter, up to a maximum of 20 appointments. The data comes from all [place] treatment facilities. Appointment Date/Time Appointment Type Appointme nt Facility Name Jan 07, 2025 11:00 AM AMBULATORY - PSYCHIATRY [facility] Jan 25, 2025 01:00 PM [facility]BULATORY - MEDICINE [facility] Active, Pending, and Scheduled Orders This section includes a listing of several types of active, pending, and scheduled orders, including clinic medications orders, diagnostic test orders, procedure orders and consult orders; where the start date of the order is 45 days before the date of the Encounter or 45 days after the date of theEncounter. The data comes from all [place] treatment facilities. Test Date/Time Test Type Test Details Facility Name Jan 02, 2025 01:54 PM [facility] Cons Sales Producer's Choice [facility] Jan 02, 2025 01:58 PM Consult Order [facility] PSYCH IATRIC MEDICATION/[facility]OPC OUTPT Cons Sales Producer's Choice [facility] Jan 02, 2025 01:58 PM Consult Order [facility] PSYCH OTHERAPY/[facility]C OUTPT Cons Sales Producer's Choice [facility] Lab Results: +/- 30 days of the encounter This section includes the Chemistry and Hematology Lab Results on record with [place] for the patient. Radiology Reports and Pathology Reports are provided separately, in subsequent sections. Lab Results This section contains the Chemistry/Hematology Results that were resulted 30 days before or 30 daysafter the date of the Encounter. Date/Time Source Result Type Result - Unit Interpretation Reference Range Specimen Type Comment Jan 02, 2025 10:23 AM [facility] CBC AND DIFF (AUTO) BLOOD Specimen Type: BLOOD No comment entered. Ordering Provider: FRED NGUYEN Report Released Date/Time: Jan 02, 2025 10:08 AM Reporting Lab: [facility] [address] [facility] [address] Performing Lab: [facility] [address] [facility] [address] WBC 11.14 10*3/uL H 4.50-11.00 RBC 5.59 [...] 10*3/uL 0.00-0.00 Jan 02, 2025 10:23 AM [facility] BASIC METABOLIC PANEL (non-fasting) SERUM Spe cimen Type: SERUM No comment entered. Ordering Provider: FRED NGUYEN Report Released Date/Time: Jan 02, 2025 10:08 AM Reporting Lab: [facility] [address] [facility] [address] Performing Lab: [address] [address] UREA NITROGEN 10 mg/dL 7-25 GLUCOSE 96 mg/dL 65-100 SODIUM 139 mmol/L 135-145 POTASSIUM 4.0 mmol/L 3.5-5.0 CHLORIDE 106 mmol/L 100-110 CO2 23 meq/L 20-30 CALCIUM 9.0 mg/dL 8.5-10.2 CREATININE, Serum 0.79 mg/dL 0.50-1.40 eGFR(CKD-EPI 2020) >90 mL/min >60 Jan 02, 2025 10:23 AM [facility] MAGNESIUM SERUM Specimen Type: SERUM No comment entered. Ordering Provider: FRED NGUYEN Report Released Date/Time: Jan 02, 2025 10:08 AM Reporting Lab: [facility] [address] [facility] [address] Performing Lab: [address] [address] MAGNESIUM 1.9 mg/dL 1.6-2.6 Jan 02, 2025 10:23 AM [facility] ETHANOL PLASMA Specimen Type: PLASM A No comment entered. Ordering Provider: FRED NGUYEN Report Released Date/Time: Jan 02, 2025 10:08 AM Reporting Lab: [facility] [address] [facility] [address] Performing Lab: [address] [address] ETHANOL <10 mg/dL <10 is Negative Jan 02, 2025 10:23 AM [facility] LIVER FUNCTION SERUM Specimen Type: SERUM No comment entered. Ordering Provider: FRED NGUYEN Report Released Date/Time: Jan 02, 2025 10:08 AM Reporting Lab: [address] [address] Performing Lab: [address] [address] PROTEIN,TOTAL 7.2 g/dL 6.0-8.3 ALBUMIN 3.9 g/dL 3.5-5.0 ALKALINE PHOSPHATASE 83 U/L 40-150 AST 17 U/L 5-34 ALT 15 U/L BILIRUBIN, TOTAL 0.6 mg/dL 0.2-1.2 Jan 02, 2025 10:23 AM [facility] DRUGS OF ABUSE URINE Specimen Type: [...] Jan 02, 2025 10:08 AM Reporting Lab: [address] [address] Performing Lab: [address] [address] AMPHETAMINES SCREEN NONE-DETECTED None-Detected, Cutoff = 1000 [...] H 1.003-1.020 Jan 02, 2025 10:23 AM [facility] COVID-19 SCREENING PANEL (CEPHEID) NASOPHARYNX Spec imen Type: NASOPHARYNX Comment: This test is authorized for emergency use only. False negative results may occur if virus is present at levels below the analytical limit of detection.Negative results do not preclude SARS-CoV-2 infection and should not be used as the sole basis for treatment or other patient management decisions.Cepheid FLUVID: HCPs: https://www.fda.gov/media/246784/download. Patients: https://www.fda.gov/media/818424/download Ordering Provider: FRED NGUYEN Report Released Date/Time: Jan 02, 2025 10:08 AM Reporting Lab: [address] [address] Performing Lab: [address] [address] COVID-19 SCR (CEPHEID) NEGATIVE Negative Vital Signs: All taken on the encounter date This section contains inpatient and outpatient Vital Signs collected on the date of the Encounter. Date/Time Temperature Pulse Blood Pressure Respiratory Rate SP02 Pain Height Weight Body Mass Index Source Jan 02, 2025 02:13 PM [facility] Jan 02, 2025 01:21 PM 6 [facility] Jan 02, 2025 09:48 AM 98.6 89 113/72 16 98 0 72 198 27 [facility] Advance Directives: All historical and current Section Date Range: From patient's date of to the date document was created. This section includes ALL of a patient's completed or amended [place] Advance and Rescinded Directives. The entries below indicate that a directive exists for the patient, but an actual copy is not included with this document. The data comes from all [place] facilities. Date Advance Directives Provider Source Jan 02, 2025 ADVANCE DIRECTIVE DISCUSSION PEGGY REARDON [facility] Encounter Notes: All associated encounter notes This section contains the clinical notes associated to the Encounter. Date/Time Encounter Note(s) Provider Source Jan 02, 2025 09:36 AM PSYCHOLOGY NOTE: LOCAL TITLE: PSYCHOLOGY NOTE STANDARD TITLE: PSYCHOLOGY NOTE DATE OF NOTE: JAN 02, 2025@09:36 ENTRY DATE: JAN 02, 2025@09:36:27 AUTHOR: ILA BRASWELL COSIGNER: URGENCY: STATUS: COMPLETED Date of session: January 02, 2025 Duration of session: 15 minutes Diagnosis: Cocaine Dependence; Opioid Depe Presenting Problem ( report): presented to [facility] looking to start suboxone. Course of Session: went to rehab in Sep at [facility]. Went to [facility] for methadone and sublocade. Initial visit for [facility] for sublocade 01/12/25. Last sublocade was October 20 through [facility]. Yesterday used $20 of fentanyl (nasal) and $20 of cocaine (nasal). Has been daily for last three weeks. Missed two days of school..just started three weeks of school. is very concerned about missing school as this is an important goal for him. He reported that he stopped the sublocade because he thought he was able to stay sober without it. He was able to stay in recovery for a month before relapsing. This technical writer provided him information about detox through admissions. He was agreeable and walked over to nursing in admission clinic. Risk Assessment: [place] denied SI/HI. See CSSRS Plan: Warm hand off to admission Suicide Screen: C-SSRS Screening Roach-Suicide Severity Rating Scale (C-SSRS Screener) 1. Over the past month, have you wished you were or wished you could go to sleep and not wake up? No 2. Over the past month, have you had any actual thoughts of killing yourself? No 3. Over the past month, have you been thinking about how you might do this? Response not required due to responses to other questions. 4. Over the past month, have you had these thoughts and had some intention of acting on them? Response not required due to responses to other questions. 5. Over the past month, have you started to work out or worked out the details of how to kill yourself? Response not required due to responses to other questions. 6. If yes, at any time in the past month did you intend to carry out this plan? Response not required due to responses to other questions. 7. In your lifetime, have you ever done anything, started to do anything, or prepared to do anything to end your life (for example, collected pills, obtained a gun, gave away valuables, went to the roof but didn't jump)? No 8. If YES, was this within the past 3 months? Response not required due to responses to other questions. /nahed/ Ila Braswell Psy.D. Psychologist Signed: 01/02/2025 10:02 ILA BRASWELL [place] [facility]
--- OUTSIDE RECORDS SUMMARY | 2025-01-14 12:13 | XMS_ITS | Encounter Summary ---
Author Name [place] Address [address] [place] [address] Support Name Relationship Address Phone ESPINOZAZACHARY ROCAEL Next of Kin [address] [place] [address] ESPINOZAZACHARY ROCAEL Emergency Contact [address] [place], [place] [phone] Insurance Providers: All historical and current Section [...] Patient's Relationship to Policy Rutledge BCBS OF [facility] HIGH DEDUCTIBL E HEALTH PLAN [facility] February 07, 2017 [id number] MARCIE RAMIREZ PATIENT BCBS OF [facility] PREFERRED PROVIDER ORGANADRIAN WHITLEY (PPO) MACIEL GARNICA [facility] February 07, 2017 [id number] MARCIE RAMIREZ PATIENT Selected Encounter This section includes the information on record at [place] for the Encounter. Date/Time Encounter Type Encounter Description Reason Pro vider Source Jan 07, 2025 11:00 AM Outpatient Encounter [facility] Encounter Template Text not used by [place] Plan of Treatment: Future Appointments (+ 6 months) and Future Tests (+/- 45 days) The Plan of Treatment section includes future care activities for the patient from all [place] treatment[place]ilities. This section includes future appointments and future orders which are active, pending or scheduled. Future Appointments This section includes appointments that were scheduled to occur 6 months from the date of the Encounter, up to a maximum of 20 appointments. The data comes from all [place] treatment facilities. Appointment Date/Time Appointment Type Appointme nt Facility Name Jan 25, 2025 01:00 PM AMBULATORY - MEDICINE [facility] Active, Pending, and Scheduled Orders This section includes a listing of several types of active, pending, and scheduled orders, including clinic medications orders, diagnostic test orders, procedure orders and consult orders; where the start date of the order is 45 days before the date of the Encounter or 45 days after the date of theEncounter. The data comes from all [facility] facilities. Test Date/Time Test Type Test Details Facility Name Jan 02, 2025 01:54 PM Consult Order [facility] OUTPT Cons Venereal Disease Control [facility] Jan 02, 2025 01:58 PM Consult Order [facility] PSYCH IATRIC MEDICATION/SOPC OUTPT Cons Venereal Disease Control [facility] Jan 02, 2025 01:58 PM Consult Order [facility]IP PSYCH OTHERAPY/SOPC OUTPT Cons Venereal Disease Control Head's Choice [facility] Lab Results: +/- 30 days of the encounter This section includes the Chemistry and Hematology Lab Results on record with [place] for the patient. Radiology Reports and Pathology Reports are provided separately, in subsequent sections. Lab Results This section contains the Chemistry/Hematology Results that were resulted 30 days before or 30 daysafter the date of the Encounter. Date/Time Source Result Type Result - Unit Interpretation Reference Range Specimen Type Comment Jan 02, 2025 10:23 AM [facility] CBC AND DIFF (AUTO) BLOOD Specimen Type: BLOOD No comment entered. Ordering Provider: FRED NGUYEN Report Released Date/Time: Jan 02, 2025 10:08 AM Reporting Lab: [facility] [address] [facility] [address] Performing Lab: [address] [address] WBC 11.14 10*3/uL H 4.50-11.00 RBC 5.59 [...] 10*3/uL 0.00-0.00 Jan 02, 2025 10:23 AM [facility] BASIC METABOLIC PANEL (non-fasting) SERUM Spe cimen Type: SERUM No comment entered. Ordering Provider: FRED NGUYEN Report Released Date/Time: Jan 02, 2025 10:08 AM Reporting Lab: [facility] [address] [facility] [address] Performing Lab: [facility] [address] [facility] [address] UREA NITROGEN 10 mg/dL 7-25 GLUCOSE 96 mg/dL 65-100 SODIUM 139 mmol/L 135-145 POTASSIUM 4.0 mmol/L 3.5-5.0 CHLORIDE 106 mmol/L 100-110 CO2 23 meq/L 20-30 CALCIUM 9.0 mg/dL 8.5-10.2 CREATININE, Serum 0.79 mg/dL 0.50-1.40 eGFR(CKD-EPI 2020) >90 mL/min >60 Jan 02, 2025 10:23 AM [facility] MAGNESIUM SERUM Specimen Type: SERUM No comment entered. Ordering Provider: FRED NGUYEN Report Released Date/Time: Jan 02, 2025 10:08 AM Reporting Lab: [address] [address] Performing Lab: [address] [address] MAGNESIUM 1.9 mg/dL 1.6-2.6 Jan 02, 2025 10:23 AM [facility] ETHANOL PLASMA Specimen Type: PLASM A No comment entered. Ordering Provider: FRED NGUYEN Report Released Date/Time: Jan 02, 2025 10:08 AM Reporting Lab: [address] [address] Performing Lab: [address] [address] ETHANOL <10 mg/dL <10 is Negative Jan 02, 2025 10:23 AM [facility] LIVER FUNCTION SERUM Specimen Type: SERUM No comment entered. Ordering Provider: FRED NGUYEN Report Released Date/Time: Jan 02, 2025 10:08 AM Reporting Lab: [address] [address] Performing Lab: [address] [address] PROTEIN,TOTAL 7.2 g/dL 6.0-8.3 ALBUMIN 3.9 g/dL 3.5-5.0 ALKALINE PHOSPHATASE 83 U/L 40-150 AST 17 U/L 5-34 ALT 15 U/L BILIRUBIN, TOTAL 0.6 mg/dL 0.2-1.2 Jan 02, 2025 10:23 AM [facility] DRUGS OF ABUSE URINE Specimen Type: [...] Jan 02, 2025 10:08 AM Reporting Lab: [address] [address] Performing Lab: [address] [address] AMPHETAMINES SCREEN NONE-DETECTED None-Detected, Cutoff = 1000 [...] H 1.003-1.020 Jan 02, 2025 10:23 AM [facility] COVID-19 SCREENING PANEL (CEPHEID) NASOPHARYNX Spec imen Type: NASOPHARYNX Comment: This test is authorized for emergency use only. False negative results may occur if virus is present at levels below the analytical limit of detection.Negative results do not preclude SARS-CoV-2 infection and should not be used as the sole basis for treatment or other patient management decisions.Cepheid FLUVID: HCPs: https://www.fda.gov/media/592267/download. Patients: https://www.fda.gov/media/220848/download Ordering Provider: FRED NGUYEN Report Released Date/Time: Jan 02, 2025 10:08 AM Reporting Lab: [facility] [address] [facility] [address] Performing Lab: [facility] [address] [facility] [address] COVID-19 SCR (CEPHEID) NEGATIVE Negative Advance Directives: All historical and current Section Date Range: From patient's date of to the date document was created. This section includes ALL of a patient's completed or amended [place] Advance and Rescinded Directives. The entries below indicate that a directive exists for the patient, but an actual copy is not included with this document. The data comes from all [place] facilities. Date Advance Directives Provider Source Jan 02, 2025 ADVANCE DIRECTIVE DISCUSSION PEGGY REARDON [facility] Encounter Notes: All associated encounter notes This section contains the clinical notes associated to the Encounter. Date/Time Encounter Note(s) Provider Source Jan 07, 2025 11:44 AM CLERICAL NOTE: [facility] TITLE: APPOINTMENT NO SHOW STANDARD TITLE: CLERICAL NOTE DATE OF NOTE: JAN 07, 2025@11:44 ENTRY DATE: JAN 07, 2025@11:44:27 AUTHOR: ARASELI FERNANDES COSIGNER: ALANNAH CONTRERAS URGENCY: STATUS: COMPLETED Patient Name: TICO RAMIREZ Patient SSN: [id number] Date and time of Appointment No show : 01/07/25 11:00 PATIENT PHONE - [phone] PHONE NUMBER [CELLULAR] - [phone] Patient's medical record was reviewed. Follow-up actions were determined and initiated: Please check/complete as applies: [X]Telephoned Directly [X]Re-scheduled for next available appt [X]Sent a N0-show letter ( must call for appointment) [ ]Other (Emergent/Overbook, etc.): Additional Comments: This curriculum writer left a VM message for , including 1946 number to call and reschedule and reminding him of upcoming next appts. Future Clinic Visits 01/17/2025 14:00 [facility] SW 2 01/23/2025 11:00 [facility] PSYTR 3 01/25/2025 13:00 SPR PACT 3 SARWAT TYSON /nahed/ JUAN HERNANDEZ MANAGER REPORTING Signed: 01/07/2025 11:45 /nahed/ ESTER EPSTEIN Rn Relief Charge Mental Health Cosigned: 01/07/2025 11:57 ARASELI FERNANDES
--- OUTSIDE RECORDS SUMMARY | 2025-01-14 12:13 | XMS_ITS | Encounter Summary ---
Author Name [place] Address [address] [place] [address] Support Name Relationship Address Phone ROCAEL RAMIREZ Next of Kin [address] [place] [address] ESPINOZAZACHARY ROCAEL Emergency Contact [address] [place] [address] Insurance Providers: All historical and current Section [...] Patient's Relationship to Policy Rutledge BCBS OF [facility] HIGH DEDUCTIBL E HEALTH PLAN [facility] February 07, 2017 [id number] [phone] MARCIE RAMIREZ PATIENT BCBS OF [facility] PREFERRED PROVIDER ORGANIZAT ION (PPO) MACIEL WANG [facility] February 07, 2017 [id number] [phone] MARCIE RAMIREZ PATIENT Selected Encounter This section includes the information on record at [place] for the Encounter. Date/Time Encounter Type Encounter Description Reason Pro vider Source [facility] Encounter Template Text not used by [place] Advance Directives: All historical and current Section Date Range: From patient's date of to the date document was created. This section includes ALL of a patient's completed or amended [place] Advance and Rescinded Directives. The entries below indicate that a directive exists for the patient, but an actual copy is not included with this document. The data comes from all [place] facilities. Date Advance Directives Provider Source Jan 02, 2025 ADVANCE DIRECTIVE DISCUSSION PEGGY REARDON [place] [facility]
--- OUTSIDE RECORDS SUMMARY | 2025-01-14 12:13 | XMS_ITS | Encounter Summary ---
Author Name [facility] [place] [facility] [place] Address [address] [place] [address] Support Name Relationship Address Phone ESPINOZAROCAEL SHARMA Next of Kin [address] [facility] [facility] [place] [id number] ASHLEY ROCAEL Emergency Contact [address] [place] [address] Insurance Providers: All historical and current Section [...] Patient's Relationship to Policy Rutledge BCBS OF [facility] HIGH DEDUCTIBL E HEALTH PLAN [facility] February 07, 2017 [id number] MARCIE RAMIREZ PATIENT BCBS OF [facility] PREFERRED PROVIDER ORGANIZAT ION (PPO) MACIEL GARNICA [facility] February 07, 2017 [id number] MARCIE RAMIREZ PATIENT Selected Encounter This section includes the information on record at [place] for the Encounter. Date/Time Encounter Type Encounter Description Reason Provider Source Jan 02, 2025 02:14 PM [facility] - IND ICD-10-CM F11.20 Opioid dependence, uncomplicated AUGUSTINA ESQUIVEL Encounter Template Text not used by [facility] Assessments - Encounter Diagnoses This section includes the primary and secondary diagnoses documented for the Encounter. Date/Time Primary/Secondary Diagnosis Diagnosis Name Provider Source Jan 02, 2025 02:19 PM PRIMARY Opioid dependence, uncomplicated RADHA-SMITH ,[place] Jan 02, 2025 02:19 PM SECONDARY Cocaine abuse, uncomplicated [facility]USTINA [facility]QU[facility]EL [facility] Jan 02, 2025 02:19 PM SECONDARY Post-traumatic stress disorder, unspecified AUGUSTINA ESQUIVEL [facility] Plan of Treatment: Future Appointments (+ 6 months) and Future Tests (+/- 45 days) The Plan of Treatment section includes future care activities for the patient from all [place] [facility] This section includes future appointments and future orders which are active, pending or scheduled. Future Appointments This section includes appointments that were scheduled to occur 6 months from the date of the Encounter, up to a maximum of 20 appointments. The data comes from all [place] treatment facilities. Appointment Date/Time Appointment Type Appointme nt Facility Name Jan 07, 2025 11:00 AM AMBULATORY - PSYCHIATRY [facility] Jan 25, 2025 01:00 PM [facility] Active, Pending, and Scheduled Orders This section includes a listing of several types of active, pending, and scheduled orders, including clinic medications orders, diagnostic test orders, procedure orders and consult orders; where the start date of the order is 45 days before the date of the Encounter or 45 days after the date of theEncounter. The data comes from all [facility] facilities. Test Date/Time Test Type Test Details Facility Name Jan 02, 2025 01:54 PM [facility] Jan 02, 2025 01:58 PM Consult Order [facility] PSYCH IATRIC MEDICATION/SOPC OUTPT Cons [facility]ist[facility] Choice [facility] Jan 02, 2025 01:58 PM Consult Order [facility] PSYCH OTHERAPY/SOPC OUTPT [facility] Criminalist's Choice [facility] Lab Results: +/- 30 days of the encounter This section includes the Chemistry and Hematology Lab Results on record with [place] for the patient. Radiology Reports and Pathology Reports are provided separately, in subsequent sections. Lab Results This section contains the Chemistry/Hematology Results that were resulted 30 days before or 30 daysafter the date of the Encounter. Date/Time Source Result Type Result - Unit Interpretation Reference Range Specimen Type Comment Jan 02, 2025 10:23 AM [facility] CBC AND DIFF (AUTO) BLOOD Specimen Type: BLOOD No comment entered. Ordering Provider: FRED NGUYEN Report Released Date/Time: Jan 02, 2025 10:08 AM Reporting Lab: [facility] [address] [facility] [address] Performing Lab: [facility] [address] [facility] [address] WBC 11.14 10*3/uL H 4.50-11.00 RBC 5.59 [...] 10*3/uL 0.00-0.00 Jan 02, 2025 10:23 AM [facility] BASIC METABOLIC PANEL (non-fasting) SERUM Spe cimen Type: SERUM No comment entered. Ordering Provider: FRED NGUYEN Report Released Date/Time: Jan 02, 2025 10:08 AM Reporting Lab: [facility] [address] [facility] [address] Performing Lab: [address] [address] UREA NITROGEN 10 mg/dL 7-25 GLUCOSE 96 mg/dL 65-100 SODIUM 139 mmol/L 135-145 POTASSIUM 4.0 mmol/L 3.5-5.0 CHLORIDE 106 mmol/L 100-110 CO2 23 meq/L 20-30 CALCIUM 9.0 mg/dL 8.5-10.2 CREATININE, Serum 0.79 mg/dL 0.50-1.40 eGFR(CKD-EPI 2020) >90 mL/min >60 Jan 02, 2025 10:23 AM [facility] MAGNESIUM SERUM Specimen Type: SERUM No comment entered. Ordering Provider: FRED NGUYEN Report Released Date/Time: Jan 02, 2025 10:08 AM Reporting Lab: [facility] [address] [facility] [address] Performing Lab: [address] [address] MAGNESIUM 1.9 mg/dL 1.6-2.6 Jan 02, 2025 10:23 AM [facility] ETHANOL PLASMA Specimen Type: PLASM A No comment entered. Ordering Provider: FRED NGUYEN Report Released Date/Time: Jan 02, 2025 10:08 AM Reporting Lab: [facility] [address] [facility] [address] Performing Lab: [address] [address] ETHANOL <10 mg/dL <10 is Negative Jan 02, 2025 10:23 AM [facility] LIVER FUNCTION SERUM Specimen Type: SERUM No comment entered. Ordering Provider: FRED NGUYEN Report Released Date/Time: Jan 02, 2025 10:08 AM Reporting Lab: [address] [address] Performing Lab: [address] [address] PROTEIN,TOTAL 7.2 g/dL 6.0-8.3 ALBUMIN 3.9 g/dL 3.5-5.0 ALKALINE PHOSPHATASE 83 U/L 40-150 AST 17 U/L 5-34 ALT 15 U/L BILIRUBIN, TOTAL 0.6 mg/dL 0.2-1.2 Jan 02, 2025 10:23 AM [facility] DRUGS OF ABUSE URINE Specimen Type: [...] Jan 02, 2025 10:08 AM Reporting Lab: [address] [address] Performing Lab: [address] [address] AMPHETAMINES SCREEN NONE-DETECTED None-Detected, Cutoff = 1000 [...] H 1.003-1.020 Jan 02, 2025 10:23 AM [facility] COVID-19 SCREENING PANEL (CEPHEID) NASOPHARYNX Spec imen Type: NASOPHARYNX Comment: This test is authorized for emergency use only. False negative results may occur if virus is present at levels below the analytical limit of detection.Negative results do not preclude SARS-CoV-2 infection and should not be used as the sole basis for treatment or other patient management decisions.Cepheid FLUVID: HCPs: https://www.fda.gov/media/277226/download. Patients: https://www.fda.gov/media/590068/download Ordering Provider: FRED NGUYEN Report Released Date/Time: Jan 02, 2025 10:08 AM Reporting Lab: [address] [address] Performing Lab: [address] [address] COVID-19 SCR (CEPHEID) NEGATIVE Negative Vital Signs: All taken on the encounter date This section contains inpatient and outpatient Vital Signs collected on the date of the Encounter. Date/Time Temperature Pulse Blood Pressure Respiratory Rate SP02 Pain Height Weight Body Mass Index Source Jan 02, 2025 02:13 PM 3 [facility] Jan 02, 2025 01:21 PM 6 [facility] Jan 02, 2025 09:48 AM 98.6 89 113/72 16 98 0 72 198 27 [facility] Advance Directives: All historical and current Section Date Range: From patient's date of to the date document was created. This section includes ALL of a patient's completed or amended [place] Advance and Rescinded Directives. The entries below indicate that a directive exists for the patient, but an actual copy is not included with this document. The data comes from all [place] facilities. Date Advance Directives Provider Source Jan 02, 2025 ADVANCE DIRECTIVE DISCUSSION PEGGY KAY [facility] Encounter Notes: All associated encounter notes This section contains the clinical notes associated to the Encounter. Date/Time Encounter Note(s) Provider Source Jan 02, 2025 02:24 PM SOCIAL WORK INPATIENT NOTE: LOCAL TITLE: INPATIENT SOCIAL WORK NOTE STANDARD TITLE: SOCIAL WORK INPATIENT NOTE DATE OF NOTE: JAN 02, 2025@14:24 ENTRY DATE: JAN 02, 2025@14:24:09 AUTHOR: RENARD ESQUIVEL EXP COSIGNER: URGENCY: STATUS: COMPLETED [place] is a 39 year(s) old, MALE [place] is currently MARITAL STATUS - Diagnoses: opioid use d/o, severe; cocaine use d/o, severe Reason for admission: opioid detox [employer] FROM Jun TO Nov IMPAIRED HEARING 0% SC 2ND DEGREE PADILLA 0% SC LIMITED FLEXION OF KNEE 10% SC LIMITED MOTION OF ARM 20% SC TINNITUS 10% SC LIMITED FLEXION OF KNEE 10% SC Patient Identifiers: Name, Duration of Contact: 45 minutes Provider(s): Augustina Esquivel, [facility]; Minesh Looney DO Content: Treatment team met with Melchor upon hearing that he was requesting discharge shortly after arriving on inpatient unit for opioid detox. He is new to [facility] and has received most of his treatment in the community. He lives with his and child in [place]. [place] started school in [place]. Note recent relapses were related to boredom when his school start date was delayed a few months. He requests discharge stating that he did not realize detox would be on an acute psych unit and that he will not be able to tolerate the environment of the unit. He will seek detox elsewhere, likely [facility] where he recently received care. He has been trying to remain sober, went through detox a couple times in the last few months and did an IOP. He has been using $20-40 worth of fentanyl and has regrets. Dr. Looney assessed for safety and explained that he could do suboxone induction on unit but would take a couple days. He would like [facility], requests psychiatry appt to start Suboxone. He knows that it will take time for him to receive an appointment. Discharge was expedited per his request. Clerk Marisa Kay will complete a safety plan with him. Treatment Goal ([place]'s words): I need to leave, I will go seek detox somewhere else Risk: denies SI/HI, at risk of returning to opioid use, has Narcan in his car Plan/Progress Towards Discharge: Discharge 3:00, has his car outside /es/ AUGUSTINA ESQUIVEL [employer]ASS LUGG[employer] MOLDER SKI TOW OPERATOR Signed: 01/02/2025 14:37 RENARD ESQUIVEL [place] [facility] [place] [facility] Jan 02, 2025 02:19 PM SOCIAL WORK INPATIENT NOTE: LOCAL TITLE: INPATIENT MH DISCHARGE LETTER STANDARD TITLE: SOCIAL WORK INPATIENT NOTE DATE OF NOTE: JAN 02, 2025@14:19 ENTRY DATE: JAN 02, 2025@14:19:40 AUTHOR: RENARD ESQUIVEL EXP COSIGNER: URGENCY: STATUS: COMPLETED THE FOLLOWING LETTER WAS REVIEWED WITH AND PROVIDED TO UPON DISCHARGE: Hubert Ramirez, Upon continued stabilization and at your request, you are being discharged from inpatient care on this day. You have informed us of your plans to discharge and to resume outpatient services as needed. Below are upcoming appointment(s that have been arranged for you by the team. Please be sure to keep these appointments for your general well-being. In the event that you are unable to keep these appointments, please notify the provider in advance (numbers below). Appointments for follow-up: Medical: 01/25/2025 13:00 SPR PACT 3 PA WH APPOINTMENTS WILL BE AT [address] [place] [id number] Mental Health: 01/07/2025 11:00 SPR MHC SW 4 Gio Silver SW 01/17/2025 14:00 [facility] SW 2 Eileen Crowe SW 01/23/2025 11:00 [facility] PSYTR [address] Domingo APPOINTMENTS WILL BE AT [address] [place] [address] Your [place] Mental Health Workforce Investment Act Career Manager is: Gracy Rojas. This person is your primary point of contact at the [place] and can assist you with scheduling and rescheduling appointments, as well as discuss other concerns or questions you have regarding your treatment. Gracy can be reached at [phone]. Please recall that the [place]'s Crisis Line is available 24 hours, 7 days a week. The phone number is: [phone] . [facility] [address] [place] [address] [facility] [address] [place] [address] [facility] [address] [facility], 1[address] [place] [address] 7th Floor of [employer] ([facility]) [phone] [facility] [address] [facility], [address] [place] [address] ext. [phone] [facility] [address] [place] [address] [facility] [address] [place] [address] [facility] [address] [place] [phone] We wish you well and please know that we remain available to you as needed. /nahed/ ESTER DIOR SKI TOW OPERATOR Signed: 01/02/2025 14:20 RENARD ESQUIVEL [place] [facility] [place] [facility] Jan 02, 2025 02:14 PM SOCIAL WORK INPATIENT NOTE: LOCAL TITLE: INPATIENT MH DISCHARGE CHECKLIST STANDARD TITLE: SOCIAL WORK INPATIENT NOTE DATE OF NOTE: JAN 02, 2025@14:14 ENTRY DATE: JAN 02, 2025@14:14:45 AUTHOR: RENARD ESQUIVEL EXP COSIGNER: URGENCY: STATUS: COMPLETED TRANSFER/DISCHARGE CARE PLAN CHECKLIST: Reason for hospitalization: opioid detox The confirms he/she will be returning to the following address/phone: [address] [place], [place] [address] [address] The following follow-up appointments have been scheduled: Medical: 01/25/2025 13:00 SPR PACT 3 SARWAT TYSON APPOINTMENTS WILL BE AT [address] [place] [address] Mental Health: 01/07/2025 11:00 SPR MHC SW 4 Gio Silver 01/17/2025 14:00 [facility] SW 2 Eileen Crowe 01/23/2025 11:00 [facility] PSYTR 3 Dr. Domingo APPOINTMENTS WILL BE AT [address] [place] [address] Treatment plan completed: No Family/caregiver/support (s) involved in treatment planning: No Advance Directive completed: No High Risk Suicide/Homicide risk assessment completed: No Suicide Safety Plan completed: Yes Discharge medications ordered by Attending Physician: No If no, reason: irregular discharge Discharge Instructions completed: Yes Arrangements made to obtain personal effects and funds: Yes Transportation arranged & discharge time set/communicated: N/A /nahed/ AUGUSTINA ESQUIVEL [employer] LUGGAGE MOLDER SKI TOW OPERATOR Signed: 01/02/2025 14:19 RENARD ESQUIVEL [place] [facility]
--- OUTSIDE RECORDS SUMMARY | 2025-01-14 12:13 | XMS_ITS | Encounter Summary ---
Author Name [facility] [place] [facility] [place] Address [address] [place] [address] Support Name Relationship Address Phone ESPINOZAELISE SHARMA Next of Kin [address] [place] [phone] ASHLEY ELISE Emergency Contact [address] [place] [address] Insurance Providers: All historical and current Section [...] Patient's Relationship to Policy Rutledge BCBS OF [facility] HIGH [employer]AN [facility] February 07, 2017 [id number] [phone] MARCIE RAMIREZ PATIENT BCBS OF [facility] PREFERRED PROVIDER ORGANIZAT ION (PPO) MACIEL GARNICA [facility] February 07, 2017 [id number] MARCIE RAMIREZ PATIENT Selected Encounter This section includes the information on record at [place] for the Encounter. Date/Time Encounter Type Encounter Description Reason Provider Source Jan 02, 2025 01:53 PM [facility] - IND ICD-10-CM F11.20 Opioid dependence, uncomplicated AUGUSTINA ESQUIVEL Encounter Template Text not used by [facility] Assessments - Encounter Diagnoses This section includes the primary and secondary diagnoses documented for the Encounter. Date/Time Primary/Secondary Diagnosis Diagnosis Name Provider Source Jan 02, 2025 02:12 PM PRIMARY Opioid dependence, uncomplicated SNAPE,RUBEN [facility] Jan 02, 2025 02:12 PM SECONDARY Cocaine abuse, uncomplicated RUBEN REARDON [facility] Jan 02, 2025 02:12 PM SECONDARY Post-traumatic stress disorder, unspecified RUBEN REARDON [facility] Plan of Treatment: Future Appointments (+ 6 months) and Future Tests (+/- 45 days) The Plan of Treatment section includes future care activities for the [facility] [place] [facility]. This section includes future appointments and future [...] 07, 2025 11:00 AM AMBULATORY - PSYCHIATRY [facility] Jan 25, 2025 01:00 PM [facility] Active, Pending, and Scheduled Orders This section includes a listing of several types of active, pending, and scheduled orders, including clinic medications orders, diagnostic test orders, procedure orders and consult orders; where the start date of the order is 45 days before the date of the Encounter or 45 days after the date of theEncounter. The data comes from all [place] treatment facilities. Test Date/Time Test Type Test Details Facility Name Jan 02, 2025 01:54 PM Consult Order [facility] Cons Auto Detailer's Choice [facility] Jan 02, 2025 01:58 PM Consult Order [facility] PSYCH IATRIC MEDICATION/[facility] OUTPT Cons Auto Detailer's Choice [facility] Jan 02, 2025 01:58 PM Consult Order [facility] PSYCH OTHERAPY/SOPC OUTPT Cons Auto Detailer's Choice [facility] Lab Results: +/- 30 days of [...] Type Comment Jan 02, 2025 10:23 AM [facility] CBC AND DIFF (AUTO) BLOOD Specimen Type: BLOOD No comment entered. Ordering Provider: FRED NGUYEN Report Released Date/Time: Jan 02, 2025 10:08 AM Reporting Lab: [facility] [address] [facility] [address] Performing Lab: [facility] [address] [address] WBC 11.14 10*3/uL H 4.50-11.00 RBC 5.59 [...] 10*3/uL 0.00-0.00 Jan 02, 2025 10:23 AM [facility] BASIC METABOLIC PANEL (non-fasting) SERUM Spe cimen Type: SERUM No comment entered. Ordering Provider: FRED NGUYEN Report Released Date/Time: Jan 02, 2025 10:08 AM Reporting Lab: [facility] [address] [facility] [facility] [address] Performing Lab: [facility] [address] [facility] [address] UREA NITROGEN 10 mg/dL 7-25 GLUCOSE 96 mg/dL 65-100 SODIUM 139 mmol/L 135-145 POTASSIUM 4.0 mmol/L 3.5-5.0 CHLORIDE 106 mmol/L 100-110 CO2 23 meq/L 20-30 CALCIUM 9.0 mg/dL 8.5-10.2 CREATININE, Serum 0.79 mg/dL 0.50-1.40 eGFR(CKD-EPI 2020) >90 mL/min >60 Jan 02, 2025 10:23 AM [facility] MAGNESIUM SERUM Specimen Type: SERUM No comment entered. Ordering Provider: FRED NGUYEN Report Released Date/Time: Jan 02, 2025 10:08 AM Reporting Lab: [facility] [address] [facility] [address] Performing Lab: [address] [address] MAGNESIUM 1.9 mg/dL 1.6-2.6 Jan 02, 2025 10:23 AM [facility] ETHANOL PLASMA Specimen Type: PLASM A No comment entered. Ordering Provider: FRED NGUYEN Report Released Date/Time: Jan 02, 2025 10:08 AM Reporting Lab: [facility] [address] [facility] [address] Performing Lab: [address] [address] ETHANOL <10 mg/dL <10 is Negative Jan 02, 2025 10:23 AM [facility] LIVER FUNCTION SERUM Specimen Type: SERUM No comment entered. Ordering Provider: FRED NGUYEN Report Released Date/Time: Jan 02, 2025 10:08 AM Reporting Lab: [address] [address] Performing Lab: [address] [address] PROTEIN,TOTAL 7.2 g/dL 6.0-8.3 ALBUMIN 3.9 g/dL 3.5-5.0 ALKALINE PHOSPHATASE 83 U/L 40-150 AST 17 U/L 5-34 ALT 15 U/L BILIRUBIN, TOTAL 0.6 mg/dL 0.2-1.2 Jan 02, 2025 10:23 AM [facility] DRUGS OF ABUSE URINE Specimen Type: [...] Jan 02, 2025 10:08 AM Reporting Lab: [address] [address] Performing Lab: [address] [address] AMPHETAMINES SCREEN NONE-DETECTED None-Detected, Cutoff = 1000 [...] H 1.003-1.020 Jan 02, 2025 10:23 AM [facility] COVID-19 SCREENING PANEL (CEPHEID) NASOPHARYNX Spec imen Type: NASOPHARYNX Comment: This test is authorized for emergency use only. False negative results may occur if virus is present at levels below the analytical limit of detection.Negative results do not preclude SARS-CoV-2 infection and should not be used as the sole basis for treatment or other patient management decisions.Cepheid FLUVID: HCPs: https://www.fda.gov/media/414535/download. Patients: https://www.fda.gov/media/686306/download Ordering Provider: FRED NGUYEN Report Released Date/Time: Jan 02, 2025 10:08 AM Reporting Lab: [address] [address] Performing Lab: [address] [address] COVID-19 SCR (CEPHEID) NEGATIVE Negative Vital Signs: All taken on the encounter date This section contains inpatient and outpatient Vital Signs collected on the date of the Encounter. Date/Time Temperature Pulse Blood Pressure Respiratory Rate SP02 Pain Height Weight Body Mass Index Source Jan 02, 2025 02:13 PM [facility] Jan 02, 2025 01:21 PM [facility] Jan 02, 2025 09:48 AM 98.6 89 113/72 16 98 0 72 198 27 [facility] Advance Directives: All historical and current [...] 02, 2025 ADVANCE DIRECTIVE DISCUSSION PEGGY REARDON [facility] Encounter Notes: All associated encounter notes This section contains the clinical notes associated to the Encounter. Date/Time Encounter Note(s) Provider Source Jan 02, 2025 01:54 PM SUICIDE PREVENTION NOTE: LOCAL TITLE: SUICIDE PREVENTION SAFETY PLAN STANDARD TITLE: SUICIDE PREVENTION NOTE DATE OF NOTE: JAN 02, 2025@13:54 ENTRY DATE: JAN 02, 2025@13:54:30 AUTHOR: RUBEN REARDON COSIGNER: AUGUSTINA ESQUIVEL URGENCY: STATUS: COMPLETED SUICIDE PREVENTION SAFETY PLAN Has ADDENDA SAFETY PLAN Please follow the steps described below on your Safety Plan. If you are experiencing a medical or mental health emergency, please call 911, at any time. If you are unable to reach your safety contacts or you are in crisis, please call the Veterans Crisis Line (Dial 988 then Press 1). Step 1: Triggers, Risk Factors and Warning Signs How will you know when you are in crisis and that the Safety Plan should be used? What are your personal red flags? 1. Racing thoughts 2. less of appetite 3. not sleep 4. isolation Step 2: Internal Coping Strategies What can you do, on your own, to help you stay safe and not act on your suicidal thoughts or urges in the future? What have you done in the past to stay safe? 1. music 2. watch [employer] 3. Go for walks 4. Spend time with dog Step 3: Social Contacts Who May Distract from the Crisis Other than mental health providers and counselors, who can you contact who helps take your mind off your problems or helps you feel better? Name: Elise Ramirez () Phone number: in phone What public places, groups, or social events help you feel better? Examples of social settings include community events, beaches, guerre[place], coffee shops, malls, churches, clubs, 12 step meetings, aftercare groups, support groups, Veterans organizations, Vet center social events. 1. Hiking pass in [facility] [employer] 2. Spending time in nature Step 4: Family Members or Friends Who May Offer Help Who are friends or family members who should be included in your plan? chooses not to disclose distress to friends or family. Step 5: Professionals and Agencies to Contact for Help Who are the mental health professionals or professional peer supports who should be included in your plan? Please list the numbers you would call in the order you would call them. Name: Augustina Esquivel [facility] Phone number: [phone] ext [phone] Veterans Crisis Line: Dial 988 then Press 1 Veterans Crisis Line Text Messaging Service: 498175 Veterans Crisis Line: https://www.veteranscrisi Zylie the Bear.net/chat Call 911 in an emergency If you need to go to an urgent care center or emergency room, where will you go? Facility name: [facility] Facility address: [address] [place] [address] Facility phone number: Local [place] site-specific emergency numbers: Step 6: Making the Environment Safe Ways to make my environment safer and barriers I will use to protect myself from these potentially lethal means: Mason is confident that Elise () would help make his environment safer. will keep safety plan close and will reference it if needed. Mason has access to firearms in their home or elsewhere: No has access to opioids: Yes Opioid safety and overdose education provided. Education provided to: Patient The following resources were shared: Used teach back to ensure information provided was clearly understood. Naloxone Patient declined naloxone. Reason: Pt spoke to D.O. and ROAD PATCHER and reports he has enough at home These are the people who will help me protect myself from having access to dangerous items: Name: Elise () Phone: in phone Mason's current, physical address: [address] [place] [address] Mason's current phone number: [phone] Other Resources: - Virtual Hope Box smartphone application (create a hope box to remember good things in one's life) - Maketheconnection.net (source of -related resources and information) - Safety Plan in PTSD Events And Promotions Assistant: www.ptsd.[place].gov/appvid/ranjan boyer/ptsdcoach_app.asp - Safety Plan in PTSD Events And Promotions Assistant Video: https://www.[employer].com/w atch?v=BWa0bjhqJ8I I have received a copy of this Safety Plan. Family member/caregiver/friend was not given copy of this Safety Plan. Reason: Vet declined Family member/caregiver/friend did not participate in this safety planning session. Reason: Vet declined This note was written by BEE WORKER internal audit senior manager under direct supervision of [facility] who will review and cosign note. /gabriel REARDON Social Work Waste And Batting Waste Chopper Signed: 01/02/2025 14:12 /nahed/ ESTER HEDRICK HISTOPATHOLOGIST Cosigned: 01/02/2025 14:23 Receipt Acknowledged By: * AWAITING SIGNATURE * NIR PHILLIPS 01/02/2025 ADDENDUM STATUS: COMPLETED This case is supervised by ESTER Hedrick. Diagnosis, treatment plan, and response to care are reviewed in standard 1-hour, or more, weekly individual supervision meeting. /ESTER Edmondson HISTOPATHOLOGIST Signed: 01/02/2025 14:23 RUBEN REARDON [facility] Jan 02, 2025 01:53 PM ADVANCE DIRECTIVE DISCUSSION: LOCAL TITLE: ADVANCE DIRECTIVE DISCUSSION STANDARD TITLE: ADVANCE DIRECTIVE DISCUSSION DATE OF NOTE: JAN 02, 2025@13:53 ENTRY DATE: JAN 02, 2025@14:19:21 AUTHOR: RUBEN REARDON EXP COSIGNER: AUGUSTINA ESQUIVEL URGENCY: STATUS: COMPLETED Vet was given Advance Directive paperwork and was explained what it was and why it is important. He is unable or unwilling to complete paperwork at this time, but has a copy for him to complete and return at a later time. This note was written by BEE WORKER internal audit senior manager under direct supervision of [facility] who will review and cosign note. /gabriel REARDON Social Work Waste And Batting Waste Chopper Signed: 01/02/2025 14:20 /nahed/ AUGUSTINA ESQUIVEL ROAD PATCHER HISTOPATHOLOGIST Cosigned: 01/02/2025 14:22 RUBEN REARDON [facility]
--- OUTSIDE RECORDS SUMMARY | 2025-01-14 12:13 | XMS_ITS | Continuity of Care Document ---
Author Name [facility] Organization [facility] Care Team Providers Care Grizzlyman Name Role Phone [facility] Unavailable Unavailable Problems Combined list of problems from Department of [facility] facilities. It does not include entries that were removed or entered in error. Problem Status Onset Date Problem Type Date of Resolution Comments Source Cocaine abuse Active Condition [facility] [place] [facility] Glenoid labrum tear Active Condition [facility] Opioid use disorder Active Condition [facility] [place] [place] [facility] PTSD - Post-traumatic stress disorder Active Condition [facility] [place] [facility] Diagnosis: ICD-10-CM F11.20 Opioid dependence, uncomplicated Active Diagnosis [facility] [place] [facility] Diagnosis: ICD-10-CM F14.10 Cocaine abuse, uncomplicated Active Diagnosis [facility] [place] [facility] Admit Reason: SUDS, PTSD Active Diagnosis [facility] [place] [facility] Diagnosis: ICD-10-CM Z13.6 Encounter for screening for cardiovascular disorders Active Diagnosis [facility] Diagnosis: ICD-10-CM F11.23 Opioid dependence with withdrawal Active [facility] Medications Combined list of outpatient medications from Department [facility] facilities.Medications provided include 1) outpatient medications from the last 15 months, and 2) patient-reported medications. Medication Details Route Status Patient Instructions Prescription Expires Prescription Number Last Dispense Date Ordering Provider Order Date Order Qty Source CLONIDINE HCL 0.1MG TAB TAKE ONE TABLET BY MOUTH NOW ORAL ACTIVE 02/01/2025 [id number] ANDREW NGUYEN 2024 1 [facility] [place] [facility] Allergies, Adverse Reactions, Alerts Combined list of allergies from Department of [facility] and [facility] facilities. It does not include entries that were removed or entered in error. Substance Category Reaction Severity Reaction type Status Date Reported Comments Source PENICILLIN Propensity to adverse reactions to drug (finding) active 6 [facility] PENICILLIN Propensity to adverse reactions to drug (finding) Eruption active 5 [facility] Immunizations Combined list of available immunizations from the Department of Defense and Veterans Affairs facilities. 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 Order Name Results Value Reference Range Date Interpretation Specimen Comments Source CBC AND DIFF (AUTO) LEUKOCYTES [#/VOLUME] IN BLOOD BY AUTOMATED COUNT 11.14 10*3/uL 4.50 - 11.00 01/02 H Specimen Type: BLOOD No comment entered. Ordering Provider: NIKI NGUYEN Report Released Date/Time: Jan 02, 2025 10:08 AM Reporting Lab: [facility] [address] [facility] [address] Performing Lab: [facility] [address] [facility] [address] [facility] CBC AND DIFF (AUTO) ERYTHROCYT ES [#/VOLUME] IN BLOOD BY AUTOMATED COUNT 5.59 10*6/uL 4.23 - 5.66 01/02 Specimen Type: BLOOD No comment entered. Ordering Provider: NIKI NGUYEN Report Released Date/Time: Jan 02, 2025 10:08 AM Reporting Lab: [facility] [address] [facility] [address] Performing Lab: [address] [address] [facility] CBC AND DIFF (AUTO) HEMOGLOBIN [MASS/VOLU ME] IN BLOOD 13.9 g/dL 12.8 - 17 01/02 Specimen Type: BLOOD No comment entered. Ordering Provider: NIKI NGUYEN Report Released Date/Time: Jan 02, 2025 10:08 AM Reporting Lab: [facility] [place] [facility] [address] [facility] [address] Performing Lab: [facility] [place] [facility] [address] [facility] [address] [facility] [place] [facility] CBC AND DIFF (AUTO) HEMATOCRIT [VOLUME FRACTION] OF BLOOD BY AUTOMATED COUNT 43.6 39.2 - 50.4 01/02 Specimen Type: BLOOD No comment entered. Ordering Provider: NIKI NGUYEN Report Released Date/Time: Jan 02, 2025 10:08 AM Reporting Lab: [facility] [place] [facility] [address] [facility] [address] Performing Lab: [facility] [place] [facility] [address] [facility] [address] [facility] [place] [facility] CBC AND DIFF (AUTO) MCV [ENTITIC VOLUME] BY AUTOMATED COUNT 78.0 fL 82 - 99 01/02 L Specimen Type: BLOOD No comment entered. Ordering Provider: NIKI NGUYEN Report Released Date/Time: Jan 02, 2025 10:08 AM Reporting Lab: [facility] [place] [facility] [address] [facility] [address] Performing Lab: [facility] [place] [facility] [address] [facility] [address] [facility] [place] [facility] CBC AND DIFF (AUTO) MCHC [MASS/VOLU ME] BY AUTOMATED COUNT 31.9 g/dL 30.8 - 35.1 01/02 Specimen Type: BLOOD No comment entered. Ordering Provider: NIKI NGUYEN Report Released Date/Time: Jan 02, 2025 10:08 AM Reporting Lab: [facility] [place] [facility] [address] [facility] [address] Performing Lab: [facility] [place] [address] [address] [facility] [place] [facility] CBC AND DIFF (AUTO) PLATELETS [#/VOLUME] IN BLOOD BY AUTOMATED COUNT 319 10*3/uL 140 - 360 01/02 Specimen Type: BLOOD No comment entered. Ordering Provider: NIKI NGUYEN Report Released Date/Time: Jan 02, 2025 10:08 AM Reporting Lab: [facility] [address] [facility] [address] Performing Lab: [facility]ERRST. [facility]ENT'[facility] HOSPITALTRN [facility]ENTERUSE[address] [phone] [place], [place] [address] TRN [facility] CBC AND DIFF (AUTO) PLATELET MEAN VOLUME [ENTITIC VOLUME] IN BLOOD BY AUTOMATED COUNT 9.1 fL 9.2 - 12.4 01/02 L Specimen Type: BLOOD No comment entered. Ordering Provider: NIKI NGUYEN Report Released Date/Time: Jan 02, 2025 10:08 AM Reporting Lab: [facility]ERRGEORGIANA [facility]ICAL CENTERN [facility]ENTERUSE[address] [address] Performing Lab: [facility]ENTERRST. VINCENT'S HOSPITALTRN [facility] CENTERUSETS [address] [address] [place], [place] [address]R[facility]GIANA MEDICAL CENTERN [facility]USE [facility] CBC AND DIFF (AUTO) ERYTHROCYT E DISTRIBUTI ON WIDTH [RATIO] BY AUTOMATED COUNT 13.4 12.0 - 16.0 01/02 Specimen Type: BLOOD No comment entered. Ordering Provider: NIKI NGUYEN Report Released Date/Time: Jan 02, 2025 10:08 AM Reporting Lab: [facility] CENTERN [facility] CENTERUSETS [address] [address] Performing Lab: [place] CNTRL TRN [facility] CENTERUSETS [address] [address] [facility]ERN [facility] CBC AND DIFF (AUTO) MONOCYTES [#/VOLUME] IN BLOOD BY AUTOMATED COUNT 0.76 10*3/uL 0.30 - 1.10 01/02 Specimen Type: BLOOD No comment entered. Ordering Provider: NIKI NGUYEN Report Released Date/Time: Jan 02, 2025 10:08 AM Reporting Lab: [facility]ERR[facility] VINCENT'[facility] HOSPITALTRN [facility] CENTERUSETS [address] [address] Performing Lab: [facility]ERR[facility]ITALTRN [place] [facility] [address] [facility] [address] [facility] [place] [facility] CBC AND DIFF (AUTO) MCH [ENTITIC MASS] BY AUTOMATED COUNT 24.9 pg 26.2 - 32.6 01/02 L Specimen Type: BLOOD No comment entered. Ordering Provider: NIKI NGUYEN Report Released Date/Time: Jan 02, 2025 10:08 AM Reporting Lab: [facility] [place] [address] [address] Performing Lab: [facility] [place] [address] [address] [facility] [place] [facility] CBC AND DIFF (AUTO) NEUTROPHIL S/100 LEUKOCYTES IN BLOOD BY AUTOMATED COUNT 69.0 43.7 - 75.8 01/02 Specimen Type: BLOOD No comment entered. Ordering Provider: NIKI NGUYEN Report Released Date/Time: Jan 02, 2025 10:08 AM Reporting Lab: [facility] [place] [address] [address] Performing Lab: [facility] [place] [address] [address] [facility] [place] [facility] CBC AND DIFF (AUTO) LYMPHOCYTE S/100 LEUKOCYTES IN BLOOD BY AUTOMATED COUNT 21.3 14.0 - 42.3 01/02 Specimen Type: BLOOD No comment entered. Ordering Provider: NIKI NGUYEN Report Released Date/Time: Jan 02, 2025 10:08 AM Reporting Lab: [facility] [place] [facility] [address] [place] [address] Performing Lab: [facility] [place] [address] [address] [facility] [place] [facility] CBC AND DIFF (AUTO) MONOCYTES/ 100 LEUKOCYTES IN BLOOD BY AUTOMATED COUNT 6.8 5.1 - 13.7 01/02 Specimen Type: BLOOD No comment entered. Ordering Provider: NIKI NGUYEN Report Released Date/Time: Jan 02, 2025 10:08 AM Reporting Lab: [facility] [place] [address] [place] [address] Performing Lab: [facility] [place] [facility] [address] [facility] [address] [facility] [place] [facility] CBC AND DIFF (AUTO) EOSINOPHIL S/100 LEUKOCYTES IN BLOOD BY AUTOMATED COUNT 2.0 0.4 - 6.8 01/02 Specimen Type: BLOOD No comment entered. Ordering Provider: NIKI NGUYEN Report Released Date/Time: Jan 02, 2025 10:08 AM Reporting Lab: [facility] [place] [facility] [address] [facility] [address] Performing Lab: [facility] [place] [facility] [address] [facility] [address] [place] [facility] [place] [facility] CBC AND DIFF (AUTO) BASOPHILS/ 100 LEUKOCYTES IN BLOOD BY AUTOMATED COUNT 0.7 0.1 - 2.0 01/02 Specimen Type: BLOOD No comment entered. Ordering Provider: NIKI NGUYEN Report Released Date/Time: Jan 02, 2025 10:08 AM Reporting Lab: [facility] [place] [facility] [address] [facility] [address] Performing Lab: [facility] [place] [facility] [address] [facility] [address] [facility]RL [place] [place] [facility] CBC AND DIFF (AUTO) NEUTROPHIL S [#/VOLUME] IN BLOOD BY AUTOMATED COUNT 7.69 10*3/uL 2.20 - 7.60 01/02 H Specimen Type: BLOOD No comment entered. Ordering Provider: NIKI NGUYEN Report Released Date/Time: Jan 02, 2025 10:08 AM Reporting Lab: [facility] [place] [facility] [address] [facility] [address] Performing Lab: [facility] [place] [facility] [address] [facility] [address] [facility]CH[facility] TS [facility] CBC AND DIFF (AUTO) LYMPHOCYTE S [#/VOLUME] IN BLOOD BY AUTOMATED COUNT 2.37 10*3/uL 1.00 - 3.20 01/02 Specimen Type: BLOOD No comment entered. Ordering Provider: NIKI NGUYEN Report Released Date/Time: Jan 02, 2025 10:08 AM Reporting Lab: [facility] [place] [facility] [address] [facility] [address] Performing Lab: [facility] [place] [facility] [address] [facility] [address] [facility] [place] [facility] CBC AND DIFF (AUTO) EOSINOPHIL S [#/VOLUME] IN BLOOD BY AUTOMATED COUNT 0.22 10*3/uL 0.03 - 0.44 01/02 Specimen Type: BLOOD No comment entered. Ordering Provider: NIKI NGUYEN Report Released Date/Time: Jan 02, 2025 10:08 AM Reporting Lab: [facility] [place] [facility] [address] [facility] [address] Performing Lab: [facility] [place] [address] [address] [facility] [place] [facility] CBC AND DIFF (AUTO) BASOPHILS [#/VOLUME] IN BLOOD BY AUTOMATED COUNT 0.08 10*3/uL 0.01 - 0.13 01/02 Specimen Type: BLOOD No comment entered. Ordering Provider: NIKI NGUYEN Report Released Date/Time: Jan 02, 2025 10:08 AM Reporting Lab: [facility] [place] [facility] [address] [facility] [address] Performing Lab: [facility] [place] [address] [address] [facility] [facility] CBC AND DIFF (AUTO) IMMATURE GRANULOCYT ES/100 LEUKOCYTES IN BLOOD BY AUTOMATED COUNT 0.2 0.0 - 0.7 01/02 Specimen Type: BLOOD No comment entered. Ordering Provider: NIKI NGUYEN Report Released Date/Time: Jan 02, 2025 10:08 AM Reporting Lab: [facility] [place] [facility] [address] [facility] [address] Performing Lab: [facility] [place] [address] [address] [facility] [place] [facility] CBC AND DIFF (AUTO) IMMATURE GRANULOCYT ES [#/VOLUME] IN BLOOD BY AUTOMATED COUNT 0.02 10*3/uL 0.00 - 0.06 01/02 Specimen Type: BLOOD No comment entered. Ordering Provider: NIKI NGUYEN Report Released Date/Time: Jan 02, 2025 10:08 AM Reporting Lab: [place] [facility] [place] [address] [address] Performing Lab: [facility] [place] [address] [address] [place] [facility] [place] [facility] CBC AND DIFF (AUTO) NUCLEATED ERYTHROCYT ES/100 LEUKOCYTES [RATIO] IN BLOOD BY AUTOMATED COUNT 0.0 0.0 - 0.0 01/02 Specimen Type: BLOOD No comment entered. Ordering Provider: NIKI NGUYEN Report Released Date/Time: Jan 02, 2025 10:08 AM Reporting Lab: [facility] [place] [address] Performing Lab: [place] [facility] [place] [address] [phone] [place], [place] [address] [facility] CBC AND DIFF (AUTO) NUCLEATED ERYTHROCYT ES [#/VOLUME] IN BLOOD BY AUTOMATED COUNT 0.00 10*3/uL 0.00 - 0.00 01/02 Specimen Type: BLOOD No comment entered. Ordering Provider: NIKI NGUYEN Report Released Date/Time: Jan 02, 2025 10:08 AM Reporting Lab: [facility] [place] [address] [address] Performing Lab: [facility] [place] [address] [address] [facility] [place] [facility] BASIC METABOLI C PANEL (non-fas ting) UREA NITROGEN [MASS/VOLU ME] IN SERUM OR PLASMA 10 mg/dL 7 - 25 01/02 Specimen Type: SERUM No comment entered. Ordering Provider: NIKI NGUYEN Report Released Date/Time: Jan 02, 2025 10:08 AM Reporting Lab: [place] [facility] [place] [address] [address] Performing Lab: [facility] [address] [facility] [address] [facility] BASIC METABOLI C PANEL (non-fas ting) GLUCOSE [MASS/VOLU ME] IN SERUM OR PLASMA 96 mg/dL 65 - 100 01/02 Specimen Type: SERUM No comment entered. Ordering Provider: NIKI NGUYEN RAMY J Report Released Date/Time: Jan 02, 2025 10:08 AM Reporting Lab: [facility]ERN [address] [address] Performing Lab: [address] [address] [facility] BASIC METABOLI C PANEL (non-fas ting) SODIUM [MOLES/VOL UME] IN SERUM OR PLASMA 139 mmol/L 135 - 145 01/02 Specimen Type: SERUM No comment entered. Ordering Provider: NIKI NGUYEN RAMY J Report Released Date/Time: Jan 02, 2025 10:08 AM Reporting Lab: [address] [address] Performing Lab: [facility] [address] [address] [facility] BASIC METABOLI C PANEL (non-fas ting) POTASSIUM [MOLES/VOL UME] IN SERUM OR PLASMA 4.0 mmol/L 3.5 - 5.0 01/02 Specimen Type: SERUM No comment entered. Ordering Provider: NIKI NGUYEN RAMY J Report Released Date/Time: Jan 02, 2025 10:08 AM Reporting Lab: [facility] [address] [address] Performing Lab: [facility] [address] [address] [facility] BASIC METABOLI C PANEL (non-fas ting) CHLORIDE [MOLES/VOL UME] IN SERUM OR PLASMA 106 mmol/L 100 - 110 01/02 Specimen Type: SERUM No comment entered. Ordering Provider: NIKI NGUYEN RAMY Lanette Report Released Date/Time: Jan 02, 2025 10:08 AM Reporting Lab: [facility]RL W[facility]N [facility]ENTERUSETS [address] [address] Performing Lab: [facility]RL WSTRN [facility]ENTERUSE[address] [address] [facility]RL WSTRN [facility] BASIC METABOLI C PANEL (non-fas ting) CARBON DIOXIDE, TOTAL [MOLES/VOL UME] IN SERUM OR PLASMA 23 meq/L 20 - 30 01/02 Specimen Type: SERUM No comment entered. Ordering Provider: NIKI NGUYEN Report Released Date/Time: Jan 02, 2025 10:08 AM Reporting Lab: [facility]ENTERRL TRN [address] [address] Performing Lab: [facility]ENTERRL TRN [address] [address] [facility]ENTERRST. VINCENT'[facility]OSPITALTRN [facility]USE [facility] BASIC METABOLI C PANEL (non-fas ting) CALCIUM [MASS/VOLU ME] IN SERUM OR PLASMA 9.0 mg/dL 8.5 - 10.2 01/02 Specimen Type: SERUM No comment entered. Ordering Provider: NIKI NGUYEN Report Released Date/Time: Jan 02, 2025 10:08 AM Reporting Lab: [facility]RL TRN [address] [address] Performing Lab: [facility] CN[facility] [place] [facility]ENTERUSE[address] [address] [facility]RL TRN [facility] BASIC METABOLI C PANEL (non-fas ting) CREATININE [MASS/VOLU ME] IN SERUM OR PLASMA 0.79 mg/dL 0.50 - 1.40 01/02 Specimen Type: SERUM No comment entered. Ordering Provider: NIKI NGUYEN RAMY Lanette Report Released Date/Time: Jan 02, 2025 10:08 AM Reporting Lab: [facility]ENTERRL TRN [facility] CENTERUSE[address] [address] Performing Lab: [facility] [place] [facility] [address] [facility] [address] [facility]N [facility] BASIC METABOLI C PANEL (non-fas ting) GLOMERULAR FILTRATION RATE/1.73 SQ M.PREDICTE D [VOLUME RATE/AREA] IN SERUM, PLASMA OR BLOOD BY CREATININE -BASED FORMULA (CKD-EPI 2020) >90mL/mi n 60 01/02 Specimen Type: SERUM No comment entered. Ordering Provider: NIKI NGUYEN J Report Released Date/Time: Jan 02, 2025 10:08 AM Reporting Lab: [facility]ERR[facility]ENTERN [facility] [address] [facility] [address] Performing Lab: [facility]N [address] [address] [facility] MAGNESIU M MAGNESIUM [MASS/VOLU ME] IN SERUM OR PLASMA 1.9 mg/dL 1.6 - 2.6 01/02 Specimen Type: SERUM No comment entered. Ordering Provider: NIKI NGUYEN Report Released Date/Time: Jan 02, 2025 10:08 AM Reporting Lab: [facility] [address] [address] Performing Lab: [facility]N [address] [address] [facility] ETHANOL ETHANOL [MASS/VOLU ME] IN SERUM OR PLASMA <10mg/dL <10 is Negative - 10 01/02 Specimen Type: PLASMA No comment entered. Ordering Provider: NIKI NGUYEN RAMY J Report Released Date/Time: Jan 02, 2025 10:08 AM Reporting Lab: [facility]ERR[facility]ENTERN [facility] [address] [facility] [address] Performing Lab: [facility]ITALN [facility]ENTERUSE[address] [address] [facility]N [facility] LIVER FUNCTION PROTEIN [MASS/VOLU ME] IN SERUM OR PLASMA 7.2 g/dL 6.0 - 8.3 01/02 Specimen Type: SERUM No comment entered. Ordering Provider: NGUYEN,VICTO RAMY J Report Released Date/Time: Jan 02, 2025 10:08 AM Reporting Lab: [facility] [place] [place] [facility] [address] [facility] [address] Performing Lab: [facility] [place] [facility] [address] [facility] [address] [facility] [facility] LIVER FUNCTION ALBUMIN [MASS/VOLU ME] IN SERUM OR PLASMA BY BROMOCRESO L PURPLE (BCP) DYE BINDING METHOD 3.9 g/dL 3.5 - 5.0 01/02 Specimen Type: SERUM No comment entered. Ordering Provider: NIKI NGUYEN Report Released Date/Time: Jan 02, 2025 10:08 AM Reporting Lab: [facility] [place] [facility] [address] [facility] [address] Performing Lab: [facility] CENTERUSETS [address] [address] [facility]RL WSTRN MASSUSE [facility] LIVER FUNCTION ALKALINE PHOSPHATAS E [ENZYMATIC ACTIVITY/V OLUME] IN SERUM OR PLASMA 83 U/L 40 - 150 01/02 Specimen Type: SERUM No comment entered. Ordering Provider: NIKI NGUYEN Report Released Date/Time: Jan 02, 2025 10:08 AM Reporting Lab: [facility] [place] [facility] [address] [facility] [address] Performing Lab: [facility] [place] [address] [address] [place] [facility] [place] [facility] LIVER FUNCTION ASPARTATE AMINOTRANS FERASE [ENZYMATIC ACTIVITY/V OLUME] IN SERUM OR PLASMA BY WITH P-5'-P 17 U/L 5 - 34 01/02 Specimen Type: SERUM No comment entered. Ordering Provider: NIKI NGUYEN Report Released Date/Time: Jan 02, 2025 10:08 AM Reporting Lab: [facility] [place] [facility] [address] [facility] [address] Performing Lab: [facility] [place] [facility] [address] [facility] [address] [facility] [place] [facility] LIVER FUNCTION ALANINE AMINOTRANS FERASE [ENZYMATIC ACTIVITY/V OLUME] IN SERUM OR PLASMA BY WITH P-5'-P 15 U/L 01/02 Specimen Type: SERUM No comment entered. Ordering Provider: NIKI NGUYEN Report Released Date/Time: Jan 02, 2025 10:08 AM Reporting Lab: [address] [address] Performing Lab: [address] [address] [facility] LIVER FUNCTION BILIRUBIN. TOTAL [MASS/VOLU ME] IN SERUM OR PLASMA 0.6 mg/dL 0.2 - 1.2 01/02 Specimen Type: SERUM No comment entered. Ordering Provider: NIKI NGUYEN Report Released Date/Time: Jan 02, 2025 10:08 AM Reporting Lab: [address] [address] Performing Lab: [address] [address] [facility] DRUGS OF ABUSE AMPHETAMIN E+METHAMPH ETAMINE [PRESENCE] IN URINE BY SCREEN METHOD NONE-DET ECTED - 1000 01/02 Specimen Type: URINE Comment: Urine with Cr <5 is diluted or substituted . Cr between 5 and 20 is very dilute. Urine with SG of 1.001 or less is diluted or substituted . SG of 1.003 or less is very dilute. Urine with a pH <3 or >11 has been adulterated and is unsuitable for testing by our current method. Urine with pH between 3 and 4 OR 10 and 11 may have been adulterated . FENTANYL CONFIRMATIO N NOT SENT BY LAB.. Ordering Provider: NIKI NGUYEN Report Released Date/Time: Jan 02, 2025 10:08 AM Reporting Lab: [address] [address] Performing Lab: [address] [address] [facility] DRUGS OF ABUSE BENZODIAZE PINES [PRESENCE] IN URINE BY SCREEN METHOD NONE-DET ECTED - 200 01/02 Specimen Type: URINE Comment: Urine with Cr <5 is diluted or substituted . Cr between 5 and 20 is very dilute. Urine with SG of 1.001 or less is diluted or substituted . SG of 1.003 or less is very dilute. Urine with a pH <3 or >11 has been adulterated and is unsuitable for testing by our current method. Urine with pH between 3 and 4 OR 10 and 11 may have been adulterated . FENTANYL CONFIRMATIO N NOT SENT BY LAB.. Ordering Provider: NIKI NGUYEN RAMY J Report Released Date/Time: Jan 02, 2025 10:08 AM Reporting Lab[facility] [address] Performing Lab: [address] [address] [facility] DRUGS OF ABUSE BENZOYLECG ONINE [PRESENCE] IN URINE BY SCREEN METHOD >150 NG/ML POSITIVE - 300 01/02 HH Specimen Type: URINE Comment: Urine with Cr <5 is diluted or substituted . Cr between 5 and 20 is very dilute. Urine with SG of 1.001 or less is diluted or substituted . SG of 1.003 or less is very dilute. Urine with a pH <3 or >11 has been adulterated and is unsuitable for testing by our current method. Urine with pH between 3 and 4 OR 10 and 11 may have been adulterated . FENTANYL CONFIRMATIO N NOT SENT BY LAB.. Ordering Provider: NIKI NGUYEN RAMY J Report Released Date/Time: Jan 02, 2025 10:08 AM Reporting Lab: [facility] [place] [address] [address] Performing Lab: [address] [address] [facility] DRUGS OF ABUSE OPIATES [PRESENCE] IN URINE BY SCREEN METHOD >300 NG/ML NONE-DET ECTED - 300 01/02 Specimen Type: URINE Comment: Urine with Cr <5 is diluted or substituted . Cr between 5 and 20 is very dilute. Urine with SG of 1.001 or less is diluted or substituted . SG of 1.003 or less is very dilute. Urine with a pH <3 or >11 has been adulterated and is unsuitable for testing by our current method. Urine with pH between 3 and 4 OR 10 and 11 may have been adulterated . FENTANYL CONFIRMATIO N NOT SENT BY LAB.. Ordering Provider: NIKI NGUYEN RAMY J Report Released Date/Time: Jan 02, 2025 10:08 AM Reporting Lab: [address] [address] Performing Lab: [address] [address] [facility] DRUGS OF ABUSE CANNABINOI DS [PRESENCE] IN URINE BY SCREEN METHOD NONE-DET ECTED - 50 01/02 Specimen Type: URINE Comment: Urine with Cr <5 is diluted or substituted . Cr between 5 and 20 is very dilute. Urine with SG of 1.001 or less is diluted or substituted . SG of 1.003 or less is very dilute. Urine with a pH <3 or >11 has been adulterated and is unsuitable for testing by our current method. Urine with pH between 3 and 4 OR 10 and 11 may have been adulterated . FENTANYL CONFIRMATIO N NOT SENT BY LAB.. Ordering Provider: NIKI NGUYEN J Report Released Date/Time: Jan 02, 2025 10:08 AM Reporting Lab: [address] [address] Performing Lab: [address] [address] [facility] DRUGS OF ABUSE BARBITURAT ES [PRESENCE] IN URINE BY SCREEN METHOD >200 NG/ML NONE-DET ECTED - 200 01/02 Specimen Type: URINE Comment: Urine with Cr <5 is diluted or substituted . Cr between 5 and 20 is very dilute. Urine with SG of 1.001 or less is diluted or substituted . SG of 1.003 or less is very dilute. Urine with a pH <3 or >11 has been adulterated and is unsuitable for testing by our current method. Urine with pH between 3 and 4 OR 10 and 11 may have been adulterated . FENTANYL CONFIRMATIO N NOT SENT BY LAB.. Ordering Provider: NIKI NGUYEN RAMY J Report Released Date/Time: Jan 02, 2025 10:08 AM Reporting Lab: [address] [address] Performing Lab: [address] [address] [facility] DRUGS OF ABUSE OXYCODONE [PRESENCE] IN URINE BY SCREEN METHOD NONE-DET ECTED - 100 01/02 Specimen Type: URINE Comment: Urine with Cr <5 is diluted or substituted . Cr between 5 and 20 is very dilute. Urine with SG of 1.001 or less is diluted or substituted . SG of 1.003 or less is very dilute. Urine with a pH <3 or >11 has been adulterated and is unsuitable for testing by our current method. Urine with pH between 3 and 4 OR 10 and 11 may have been adulterated . FENTANYL CONFIRMATIO N NOT SENT BY LAB.. Ordering Provider: NIKI NGUYEN RAMY J Report Released Date/Time: Jan 02, 2025 10:08 AM Reporting Lab: [address] [address] Performing Lab: [address] [id number] [place] [address] DRUGS OF ABUSE BUPRENORPH INE [PRESENCE] IN URINE BY SCREEN METHOD POSITIVE 01/02 HH Specimen Type: URINE Comment: Urine with Cr <5 is diluted or substituted . Cr between 5 and 20 is very dilute. Urine with SG of 1.001 or less is diluted or substituted . SG of 1.003 or less is very dilute. Urine with a pH <3 or >11 has been adulterated and is unsuitable for testing by our current method. Urine with pH between 3 and 4 OR 10 and 11 may have been adulterated . FENTANYL CONFIRMATIO N NOT SENT BY LAB.. Ordering Provider: NIKI NGUYEN RAMY J Report Released Date/Time: Jan 02, 2025 10:08 AM Reporting Lab: [address] [address] Performing Lab: [address] [address] [facility] DRUGS OF ABUSE ETHANOL [MASS/VOLU ME] IN URINE NONE-DET ECTEDmg/ dL - 10 01/02 Specimen Type: URINE Comment: Urine with Cr <5 is diluted or substituted . Cr between 5 and 20 is very dilute. Urine with SG of 1.001 or less is diluted or substituted . SG of 1.003 or less is very dilute. Urine with a pH <3 or >11 has been adulterated and is unsuitable for testing by our current method. Urine with pH between 3 and 4 OR 10 and 11 may have been adulterated . FENTANYL CONFIRMATIO N NOT SENT BY LAB.. Ordering Provider: NIKI NGUYEN J Report Released Date/Time: Jan 02, 2025 10:08 AM Reporting Lab: [address] [address] Performing Lab: [address] [address] [facility] DRUGS OF ABUSE FENTANYL [PRESENCE] IN URINE BY SCREEN METHOD POSITIVE ng/mL 01/02 HH Specimen Type: URINE Comment: Urine with Cr <5 is diluted or substituted . Cr between 5 and 20 is very dilute. Urine with SG of 1.001 or less is diluted or substituted . SG of 1.003 or less is very dilute. Urine with a pH <3 or >11 has been adulterated and is unsuitable for testing by our current method. Urine with pH between 3 and 4 OR 10 and 11 may have been adulterated . FENTANYL CONFIRMATIO N NOT SENT BY LAB.. Ordering Provider: NIKI NGUYEN J Report Released Date/Time: Jan 02, 2025 10:08 AM Reporting Lab: [address] [address] Performing Lab: [address] [address] [facility] DRUGS OF ABUSE PH OF URINE 5.3 [pH] 4 - 10 01/02 Specimen Type: URINE Comment: Urine with Cr <5 is diluted or substituted . Cr between 5 and 20 is very dilute. Urine with SG of 1.001 or less is diluted or substituted . SG of 1.003 or less is very dilute. Urine with a pH <3 or >11 has been adulterated and is unsuitable for testing by our current method. Urine with pH between 3 and 4 OR 10 and 11 may have been adulterated . FENTANYL CONFIRMATIO N NOT SENT BY LAB.. Ordering Provider: NIKI NGUYEN J Report Released Date/Time: Jan 02, 2025 10:08 AM Reporting Lab: [facility] [address] [address] Performing Lab: [address] [address] [facility] DRUGS OF ABUSE CREATININE [MASS/VOLU ME] IN URINE 351.76 mg/dL 20 01/02 Specimen Type: URINE Comment: Urine with Cr <5 is diluted or substituted . Cr between 5 and 20 is very dilute. Urine with SG of 1.001 or less is diluted or substituted . SG of 1.003 or less is very dilute. Urine with a pH <3 or >11 has been adulterated and is unsuitable for testing by our current method. Urine with pH between 3 and 4 OR 10 and 11 may have been adulterated . FENTANYL CONFIRMATIO N NOT SENT BY LAB.. Ordering Provider: NIKI NGUYEN J Report Released Date/Time: Jan 02, 2025 10:08 AM Reporting Lab: [facility] [address] Performing Lab: [address] [address] [facility] DRUGS OF ABUSE SPECIFIC GRAVITY OF URINE 1.026 1.003 - 1.020 01/02 H Specimen Type: URINE Comment: Urine with Cr <5 is diluted or substituted . Cr between 5 and 20 is very dilute. Urine with SG of 1.001 or less is diluted or substituted . SG of 1.003 or less is very dilute. Urine with a pH <3 or >11 has been adulterated and is unsuitable for testing by our current method. Urine with pH between 3 and 4 OR 10 and 11 may have been adulterated . FENTANYL CONFIRMATIO N NOT SENT BY LAB.. Ordering Provider: NIKI NGUYEN Report Released Date/Time: Jan 02, 2025 10:08 AM Reporting Lab: [place] [facility] [place] [facility] [address] [facility] [address] Performing Lab: [facility] [place] [facility] [address] [facility] [address] [place] [facility] [place] [facility] COVID-19 SCREENIN G PANEL ([facility] ) SARS-COV-2 (COVID-19) RNA [PRESENCE] IN RESPIRATOR Y SYSTEM SPECIMEN BY ANU WITH PROBE DETECTION NEGATIVE 01/02 Specimen Type: NASOPHARYNX Comment: This test is authorized for emergency use only. False negative results may occur if virus is present at levels below the analytical limit of detection.N egative results do not preclude SARS-CoV-2 infection and should not be used as the sole basis for treatment or other patient management decisions.C epheid FLUVID: HCPs: https://www .fda.gov/me marilin/761303/ download. Patients: https://www .fda.gov/me marilin/345702/ download Ordering Provider: NIKI NGUYEN Report Released Date/Time: Jan 02, 2025 10:08 AM Reporting Lab: [place] [facility] [place] [facility] [address] [facility] [address] Performing Lab: [facility] [place] [place] [address] [address] [place] [facility] [facility] Vital Signs Combined list of inpatient and outpatient Vital Signs from Department of Defense and Veterans Affairs, ranging from 12 months to all on record, depending upon the facility. Vital Sign Value Date Comments Source PAIN 3 01/02/2025 14:13:00 [facility] [place] [facility] Encounters Combined list of: 1) Encounters from Department of Veterans Affairs facilities going backup to the last 18 months, not all [place] inpatient encounters are included; 2) Encounters from the Department of Defense facilities going backup to 280 months. Location Location Details Encounter Type Encounter Number Reason For Visit Attending Provider ADM Date DC Date Status Disposition Source [facility] Outpatient Encounter [id number] 10/02 [facility] Outpatient Encounter [id number] 10/02 [facility] En[facility] [id number] 10/08 [facility] Encounter [id number] 10/09 [facility] Encounter [id number] 11/14 [facility] Encounter [id number] 12/25 [facility] Encounter [id number] [facility] Encounter [id number] 12/26 [facility] CRISIS INTERVEN SVC, 15 MIN [id number] Diagnos is: ICD-10- CM F11.20 Opioid depende nce, uncompl icated April LEVIN 01/02 [facility] OFF/OP EST JANUARY X REQ PHY/QHP [id number] Diagnos is: ICD-10- CM F11.23 Opioid depende nce with CHACORTA Garcia 01/02 [facility] [place] [facility] PSYCH DIAGNOSTIC EVALUATION [id number] Diagnos is: ICD-10- CM F11.20 Opioid depende nce, uncompl icated MAZIN STONE T 01/02 [facility] [place] [facility] [place] [facility] OFFICE O/P [place] HI 40 MIN [id number] Diagnos is: ICD-10- CM F11.20 Opioid depende nce, uncompl icated NGUYEN,ANDREWT ORILexis J 01/02 [facility] [place] [facility] REPORT [id number] Diagnos is: ICD-10- CM Z13.6 Encount er for screeni ng for cardiov ascular disorde rs RAYMOND,PAR UL U 01/02 [facility] [place] [facility] Outpatient Encounter [id number] 01/02 [facility] [place] [facility] [place] [facility] Inpatient Encounter [id number] Admit Reason: SUDS, PTSD RA Mee ARMENTA 01/02 Regular discharge from inpatient treatment. [facility] [place] [facility] [place] [facility] Inpatient Encounter [id number] 01/02 [place] [facility] [place] [facility] [place] [facility] CASE MANAGEMENT [id number] Diagnos is: ICD-10- CM F11.20 Opioid depende nce, uncompl icated RADHA-KHANG LARRY 01/02 [place] [facility] [place] [facility] [place] [facility] SBSQ HOSP IP/OBS HIGH 50 [id number] Diagnos is: ICD-10- CM F14.10 Cocaine abuse, uncompl icated RA eMe ARMENTA Nato 01/02 [facility] [place] [facility] [place] [facility] CASE MANAGEMENT [id number] Diagnos is: ICD-10- CM F11.20 Opioid depende nce, uncompl icated RADHA-PIE RCEKHANG 01/02 [place] [facility] [place] [facility] [place] [facility] Inpatient Encounter [id number] [facility] [place] [facility] [place] Outpatient Encounter [id number] 01/07 [place] Social History Combined list of available smoking, tobacco, and other social history from Department of Defense and Veterans Affairs facilities. Social History Type Response Date Comment Sourc e Tobacco smoking status NHIS LIFETIME NON-TOBACCO USER 12/11/2015 THEODORA HOBSON [facility] Plan of Care List of future care activities from Department of Veterans Affairs facilities. Additional future care activities may be listed in the Assessment and Plan section. Date/Time Care Activity Care Activity Detail Facili ty 01/25/2025 AMBULATORY - MEDICINE AMBULATORY - MEDICI [facility] Advance Directives List of completed, amended, or rescinded Advance Directives on record at Department of Veterans Affairs facilities. An actual copy of the Directive is not included. Date Advance Directive Provider Source 01/02/2025 ADVANCE DIRECTIVE DISCUSSION PEGGY REARDON [facility] [place] [facility]
== END 2025-01-14 11:42 | disposition home or self-care (01) ==
LOC: HO.HID 10:35
PROVIDERS: Visit Provider Internal Medicine
DX: F11.21 Opioid dependence, in remission (principal); F14.10 Cocaine abuse, uncomplicated
CPT/HCPCS: 99204

== ENCOUNTER 2025-01-23 16:39 | Outpatient (AMB) | payer OTHER, SELFPAY ==
--- NOTE | 2025-01-23 16:45 | MHC.OFFVIS ---
Intake Visit Reasons: MAT Allergies Penicillins Allergy (Unknown, Verified 01/14/25 10:44) Unknown HPI HPI MAT: Details: He is doing well over last week. His is impressed. He found Clonidine and atarax helpful. [facility] Medical History Cocaine use disorder Opioid use disorder, moderate, in early remission Review of Systems Const All systems reviewed & are unremarkable except as noted in HPI and below Physical Exam Const General: cooperative Assessment & Plan Assessment & Plan (1) Cocaine use disorder: Comment: consider Welbutrin,topamax next visit,for now clonidine and vistaril may help. Code(s): F14.10 - Cocaine abuse, uncomplicated Category: Medical Plan: na (2) Opioid use disorder, moderate, in early remission: Comment: He is doing well. He has 16 Suboxone left Do labs See in one week and give Sublocade when able. Code(s): F11.21 - Opioid dependence, in remission Category: Medical Plan: na Medications: New buprenorphine ER (Sublocade) 300 mg (1.5 mL) subcut ONCE 1.5 mL 0RF 2 doses Coding Level of Care Code Est Pt Level 3 (35437) Diagnoses Cocaine use disorder F14.10 Opioid use disorder, moderate, in early remission F11.21
--- OUTSIDE RECORDS SUMMARY | 2025-01-23 18:40 | XMS_ITS ---
Author Name Department of Vetera ns Affairs ([place]) Organization [place] Address [address] [place] [address] Support Name Relationship Address Phone ESPINOZAZACHARY ROCAEL Next of Kin [address] [facility] [address] [address] [place], [place] [phone] ROCAEL RAMIREZ Emergency Contact [address] [place], [place] [phone] Insurance Providers: All historical and current Section [...] Patient's Relationship to Policy Rutledge BCBS OF [facility] HIGH DEDUCTIBL E HEALTH PLAN [facility] February 07, 2017 [id number] MARCIE RAMIREZ PATIENT BCBS OF [facility] PREFERRED PROVIDER ORGANIZAT ION (PPO) MACIEL GARNICA [facility] February 07, 2017 [id number] MARCIE RAMIREZ PATIENT Selected Encounter This section includes the information on record at [place] for the Encounter. Date/Time Encounter Type Encounter Description Reason Pro vider Source Jan 23, 2025 08:38 AM Outpatient Encounter ADMIN PAT ACTIVTIES (MASNONCT) IHE Encounter Template Text not used by VA Plan of Treatment: Future Appointments (+ 6 [...] 20 appointments. The data comes from all [facility] facilities. Appointment Date/Time Appointment Type Appointme nt Facility Name Jan 25, 2025 01:00 PM [facility] February 04, 2025 09:00 AM AMBULATORY - PSYCHIATRY [facility] February 15, 2025 11:00 AM AMBULATORY PSYCHIATRY [facility] Active, Pending, and Scheduled Orders This section includes a listing of several types of active, pending, and scheduled orders, including clinic medications orders, diagnostic test orders, procedure orders and consult orders; where the start date of the order is 45 days before the date of the Encounter or 45 days after the date of theEncounter. The data comes from all [facility]. Test Date/Time Test Type Test Details Facility Name Jan 02, 2025 01:54 PM Consult Order [facility] OUTPT Cons Director Recreation's Choice [facility] Jan 02, 2025 01:58 PM Consult Order [facility]ICATION/SOPC OUTPT Cons Director Recreation's Choice [facility] Jan 02, 2025 01:58 PM Consult Order [facility] PSYCH OTHERAPY/SOPC OUTPT Cons Director Recreation's Choice [facility] Lab Results: +/- 30 days of the encounter This section includes the Chemistry and Hematology Lab Results on record with [place] for the patient. Radiology Reports and Pathology Reports are provided separately, in subsequent sections. Lab Results This section contains the Chemistry/Hematology Results that were resulted 30 days before or 30 daysafter the date of the Encounter. Date/Time Source Result Type Result - Unit Interpretation Reference Range Specimen Type Comment Jan 02, 2025 10:23 AM [facility] CBC AND DIFF (AUTO) BLOOD Specimen Type: BLOOD No comment entered. Ordering Provider: FRED NGUYEN Report Released Date/Time: Jan 02, 2025 10:08 AM Reporting Lab: [address] [address] Performing Lab: [facility] [address] [facility] [address] WBC 11.14 10*3/uL H 4.50-11.00 RBC 5.59 [...] 10*3/uL 0.00-0.00 Jan 02, 2025 10:23 AM [facility] BASIC METABOLIC PANEL (non-fasting) SERUM Spe cimen Type: SERUM No comment entered. Ordering Provider: FRED NGUYEN Report Released Date/Time: Jan 02, 2025 10:08 AM Reporting Lab: [facility] [address] [facility] [address] Performing Lab: [facility] [address] [facility] [address] UREA NITROGEN 10 mg/dL 7-25 GLUCOSE 96 mg/dL 65-100 SODIUM 139 mmol/L 135-145 POTASSIUM 4.0 mmol/L 3.5-5.0 CHLORIDE 106 mmol/L 100-110 CO2 23 meq/L 20-30 CALCIUM 9.0 mg/dL 8.5-10.2 CREATININE, Serum 0.79 mg/dL 0.50-1.40 eGFR(CKD-EPI 2020) >90 mL/min >60 Jan 02, 2025 10:23 AM [facility] MAGNESIUM SERUM Specimen Type: SERUM No comment entered. Ordering Provider: FRED NGUYEN Report Released Date/Time: Jan 02, 2025 10:08 AM Reporting Lab: [address] [address] Performing Lab: [address] [address] MAGNESIUM 1.9 mg/dL 1.6-2.6 Jan 02, 2025 10:23 AM [facility] ETHANOL PLASMA Specimen Type: PLASM A No comment entered. Ordering Provider: FRED NGUYEN Report Released Date/Time: Jan 02, 2025 10:08 AM Reporting Lab: [address] [address] Performing Lab: [address] [address] ETHANOL <10 mg/dL <10 is Negative Jan 02, 2025 10:23 AM [facility] LIVER FUNCTION SERUM Specimen Type: SERUM No comment entered. Ordering Provider: FRED NGUYEN Report Released Date/Time: Jan 02, 2025 10:08 AM Reporting Lab: [address] [address] Performing Lab: [address] [address] PROTEIN,TOTAL 7.2 g/dL 6.0-8.3 ALBUMIN 3.9 g/dL 3.5-5.0 ALKALINE PHOSPHATASE 83 U/L 40-150 AST 17 U/L 5-34 ALT 15 U/L BILIRUBIN, TOTAL 0.6 mg/dL 0.2-1.2 Jan 02, 2025 10:23 AM [facility] DRUGS OF ABUSE URINE Specimen Type: [...] 02, 2025 10:08 AM Reporting Lab: [address] [address] Performing Lab: [address] [address] AMPHETAMINES SCREEN NONE-DETECTED None-Detected, Cutoff = 1000 [...] HH Negative: Cutoff = 1.00 ng/mL PH, SHNANAN 5.3 [pH] 4-10 CREATININE, SHANNAN 351.76 mg/dL >20 SP.GRAVITY, SHANNAN 1.026 H 1.003-1.020 Jan 02, 2025 10:23 AM [facility] COVID-19 SCREENING PANEL (CEPHEID) NASOPHARYNX Spec imen Type: NASOPHARYNX Comment: This test is authorized for emergency use only. False negative results may occur if virus is present at levels below the analytical limit of detection.Negative results do not preclude SARS-CoV-2 infection and should not be used as the sole basis for treatment or other patient management decisions.Cepheid FLUVID: HCPs: https://www.fda.gov/media/852849/download. Patients: https://www.fda.gov/media/315834/download Ordering Provider: FRED NGUYEN Report Released Date/Time: Jan 02, 2025 10:08 AM Reporting Lab: [facility] [address] [facility] [address] Performing Lab: [facility] [address] [facility] [address] COVID-19 SCR (CEPHEID) NEGATIVE Negative Advance Directives: All historical and current Section Date Range: From patient's date of to the date document was created. This section includes ALL of a patient's completed or amended [place] Advance and Rescinded Directives. The entries below indicate that a directive exists for the patient, but an actual copy is not included with this document. The data comes from all [place] facilities. Date Advance Directives Provider Source Jan 02, 2025 ADVANCE DIRECTIVE DISCUSSION PEGGY REARDON [facility] Encounter Notes: All associated encounter notes This section contains the clinical notes associated to the Encounter. Date/Time Encounter Note(s) Provider Source Jan 23, 2025 08:38 AM BORE MILL OPERATOR FOR PLASTIC NOTE: LOCAL TITLE: POST CASE MANAGEMENT SCREENING STANDARD TITLE: BORE MILL OPERATOR FOR PLASTIC NOTE DATE OF NOTE: JAN 23, 2025@08:38 ENTRY DATE: JAN 23, 2025@08:38:31 AUTHOR: KONSTANTIN MOREJON EXP COSIGNER: HATTIE BRODERICK URGENCY: STATUS: COMPLETED Post 06/13 Case Management Screen Unable to Contact Third and Final attempt to contact patient for Post 06/13 Case Management Screen was unsuccessful. The Outreach Protocol is complete. Comment: Email sent Dear , We would like to take this opportunity to welcome you to the [facility] and thank you for your service to our country. The mission of the Post-06/[address] (VA) Case Management Program is to offer our assistance and subject matter expertise regarding VA healthcare, services and benefits that you may be eligible for as a Post-06/13 era [place]. The M2VA Team provides combat and non-combat Veterans, current conflict era Veterans, and transitioning service members with resource information, coordination of VA services, and, when needed, individualized case management. At the bottom of this email you will find contact information for the entire M2VA Team as well as a list of helpful contact numbers and website links for resources we believe might be helpful and of interest to you as you begin to navigate the [facility] region. Please be sure to scroll down for more! If you require assistance or wish to contact your provider, please call the Call Center at [phone]. For urgent needs, and particularly if a crisis or symptoms lead to thoughts of suicide, the Veterans Crisis Line also offers free, confidential support 24 hours a day, 7 days a week, 365 days a year. The number for the Veterans Crisis Yoko is 132-065-8096 (Press 1). You can also access the Veterans Crisis Line by text at 322273. For all other emergencies, please call 911 for assistance. Signed with Respect, Admiration & Gratitude for your hard work in hard places, ESTER Yan M2VA English Drawer/Net Mender Post-06/13 To [place] (M2VA) Case Management Program Formerly known as OEF/OIF/OND and TCM Team [facility] Email: [email or web address] JUAN Wisdom M2TERRENCE Transition Patient Advocate Post-06/13 To [place] (M2VA) Case Management Program Formerly known as OEF/OIF/OND and TCM Team [facility] Email: Appointment Call Center: COVID Vaccine Scheduling: Billing Questions: Benefit Administration: Environmental Exposures Dept: ext [phone] VA WELCOME KIT: Welcome kit simplifies Veterans experience - VA INSIDER Print Out Your VA Welcome Kit The OBJECT Veterans Affairs was NOT found...Contact IRM. Whole Health Initiative: Whole Health Home (va.gov) Airborne Hazards Open Burn Pit & Environmental Exposures: Many service members have been exposed to environmental toxins during their service and we encourage you to complete the toxic exposure registries that apply to you via the below link. Once you have completed that task, please contact: Catherine Yang at ext [phone] to schedule your toxic exposure examination. Completion of the online registry is a prerequisite for scheduling a schx-dv-xubv, Phase II physical exam. Scheduling of your kndn-cn-xlvb, Phase II Physical Examination does not occur automatically and is a [place]-driven process. You will need to request your Phase II Physical Exam appointment by alerting your with your Primary Care Provider that you have completed the online registry and calling the telephone number listed above for the [facility] Environmental Exposure Department. Please be patient as the site has many details. If it should shut down/disconnect, it will save the information provided thus far. If youre having difficulty with any part of the process, please do not hesitate to contact the VA Team and we will advocate on your behalf. Environmental Exposures Online Registry: https://.mobilehealth .[place].gov/AHBurnPitRegistry/#p age/home Local VET CENTER Info: [place] https://www.va.gov/find-loca tions/?facilityType=vet_cent er VA Travel Pay Reimbursement Info: VA Travel Pay Reimbursement The OBJECT Veterans Affairs was NOT found...Contact [facility]. [place] Service Office Sheet Music Salesperson: National: https://nvf.org/-serv ice-officers/ [place]: https://DocbookMDtsadvisor.org/ Service Dog Information: Dogs and PTSD - PTSD: National Center for PTSD (va.gov) Service Dog Veterinary Health Benefit - Rehabilitation and Prosthetic Services (va.gov) /nahed/ KONSTANTIN MOREJON Transitional Patient Advocate Signed: 01/23/2025 08:38 /nahed/ ESTER Yan LICENSED CLINICAL CURRICULUM FACILITATOR Cosigned: 01/23/2025 12:52 KONSTANTIN MOREJON [place] CNTRL W[facility]
--- OUTSIDE RECORDS SUMMARY | 2025-01-23 18:40 | XMS_ITS | Encounter Summary ---
Author Name [facility] [place] Organization [place] Address [address] [place] [address] Support Name Relationship Address Phone ESPINOZAZACHARY ROCAEL Next of Kin [address] [address] ESPINOZAZACHARY ROCAEL Emergency Contact [address] [place], [place] [phone] Insurance Providers: All historical and current Section [...] Patient's Relationship to Policy Rutledge BCBS OF [facility] HIGH DEDUCTIBL E HEALTH PLAN [facility] February 07, 2017 [id number] MARCIE RAMIREZ PATIENT BCBS OF [facility] PREFERRED PROVIDER ORGANADRIAN WHITLEY (PPO) MACIEL GARNICA [facility] February 07, 2017 [id number] [phone] MARCIE RAMIREZ PATIENT Selected Encounter This section includes the information on record at [place] for the Encounter. Date/Time Encounter Type Encounter Description Reason Pro vider Source Jan 23, 2025 11:00 AM Outpatient Encounter [facility] Encounter Template Text not used by [place] Plan of Treatment: Future Appointments (+ 6 [...] 20 appointments. The data comes from all [facility] facilities. Appointment Date/Time Appointment Type Appointme nt Facility Name Jan 25, 2025 01:00 PM [facility] 04, 2025 09:00 AM AMBULATORY - PSYCHIATRY [facility] February 15, 2025 11:00 AM AMBULATORY - PSYCHIATRY [facility] Active, Pending, and Scheduled Orders This section includes a listing of several types of active, pending, and scheduled orders, including clinic medications orders, diagnostic test orders, procedure orders and consult orders; where the start date of the order is 45 days before the date of the Encounter or 45 days after the date of theEncounter. The data comes from all [facility]. Test Date/Time Test Type Test Details Facility Name Jan 02, 2025 01:54 PM Consult Order [facility] OUTPT Cons Economics Lecturer's Choice [facility] Jan 02, 2025 01:58 PM Consult Order BH[facility] PSYCH IATRIC MEDICATION/SOPC OUTPT Cons Economics [facility] Jan 02, 2025 01:58 PM Consult Order BHIP PSYCH OTHERAPY/SOPC OUTPT Cons Economics Lecturer's Choice [facility] Lab Results: +/- 30 days of the encounter This section includes the Chemistry and Hematology Lab Results on record with [place] for the patient. Radiology Reports and Pathology Reports are provided separately, in subsequent sections. Lab Results This section contains the Chemistry/Hematology Results that were resulted 30 days before or 30 daysafter the date of the Encounter. Date/Time Source Result Type Result - Unit Interpretation Reference Range Specimen Type Comment Jan 02, 2025 10:23 AM [facility] CBC AND DIFF (AUTO) BLOOD Specimen Type: BLOOD No comment entered. Ordering Provider: FRED NGUYEN Report Released Date/Time: Jan 02, 2025 10:08 AM Reporting Lab: [address] [address] Performing Lab: [address] [address] WBC 11.14 10*3/uL H 4.50-11.00 RBC 5.59 [...] 10*3/uL 0.00-0.00 Jan 02, 2025 10:23 AM [facility] BASIC METABOLIC PANEL (non-fasting) SERUM Spe cimen Type: SERUM No comment entered. Ordering Provider: FRED NGUYEN Report Released Date/Time: Jan 02, 2025 10:08 AM Reporting Lab: [facility] [address] [facility] [address] Performing Lab: [address] [address] UREA NITROGEN 10 mg/dL 7-25 GLUCOSE 96 mg/dL 65-100 SODIUM 139 mmol/L 135-145 POTASSIUM 4.0 mmol/L 3.5-5.0 CHLORIDE 106 mmol/L 100-110 CO2 23 meq/L 20-30 CALCIUM 9.0 mg/dL 8.5-10.2 CREATININE, Serum 0.79 mg/dL 0.50-1.40 eGFR(CKD-EPI 2020) >90 mL/min >60 Jan 02, 2025 10:23 AM [facility] MAGNESIUM SERUM Specimen Type: SERUM No comment entered. Ordering Provider: FRED NGUYEN Report Released Date/Time: Jan 02, 2025 10:08 AM Reporting Lab: [facility] [address] [facility] [address] Performing Lab: [facility] [address] MAGNESIUM 1.9 mg/dL 1.6-2.6 Jan 02, 2025 10:23 AM [facility] ETHANOL PLASMA Specimen Type: PLASM A No comment entered. Ordering Provider: FRED NGUYEN Report Released Date/Time: Jan 02, 2025 10:08 AM Reporting Lab: [facility] [address] [facility] [address] Performing Lab: [address] [address] ETHANOL <10 mg/dL <10 is Negative Jan 02, 2025 10:23 AM [facility] LIVER FUNCTION SERUM Specimen Type: SERUM No comment entered. Ordering Provider: FRED NGUYEN Report Released Date/Time: Jan 02, 2025 10:08 AM Reporting Lab: [facility] [address] [facility] [address] Performing Lab: [facility] [address] PROTEIN,TOTAL 7.2 g/dL 6.0-8.3 ALBUMIN 3.9 g/dL 3.5-5.0 ALKALINE PHOSPHATASE 83 U/L 40-150 AST 17 U/L 5-34 ALT 15 U/L BILIRUBIN, TOTAL 0.6 mg/dL 0.2-1.2 Jan 02, 2025 10:23 AM [facility] DRUGS OF ABUSE URINE Specimen Type: [...] Jan 02, 2025 10:08 AM Reporting Lab: [address] [address] Performing Lab: [address] [address] AMPHETAMINES SCREEN NONE-DETECTED None-Detected, Cutoff = 1000 [...] H 1.003-1.020 Jan 02, 2025 10:23 AM [facility] COVID-19 SCREENING PANEL (CEPHEID) NASOPHARYNX Spec imen Type: NASOPHARYNX Comment: This test is authorized for emergency use only. False negative results may occur if virus is present at levels below the analytical limit of detection.Negative results do not preclude SARS-CoV-2 infection and should not be used as the sole basis for treatment or other patient management decisions.Cepheid FLUVID: HCPs: https://www.fda.gov/media/914609/download. Patients: https://www.fda.gov/media/381247/download Ordering Provider: FRED NGUYEN Report Released Date/Time: Jan 02, 2025 10:08 AM Reporting Lab: [facility] [address] [facility] [address] Performing Lab: [facility] [address] [facility] [address] COVID-19 SCR (CEPHEID) NEGATIVE Negative Advance Directives: All historical and current Section Date Range: From patient's date of to the date document was created. This section includes ALL of a patient's completed or amended [place] Advance and Rescinded Directives. The entries below indicate that a directive exists for the patient, but an actual copy is not included with this document. The data comes from all [place] facilities. Date Advance Directives Provider Source Jan 02, 2025 ADVANCE DIRECTIVE DISCUSSION PEGGY REARDON [facility] Encounter Notes: All associated encounter notes This section contains the clinical notes associated to the Encounter. Date/Time Encounter Note(s) Provider Source Jan 23, 2025 11:05 AM CLERICAL NOTE: LOCAL TITLE: APPOINTMENT NO SHOW STANDARD TITLE: CLERICAL NOTE DATE OF NOTE: JAN 23, 2025@11:05 ENTRY DATE: JAN 23, 2025@11:06:07 AUTHOR: JES DAWKINS EXP COSIGNER: URGENCY: STATUS: COMPLETED Patient Name: TICO RAMIREZ Patient SSN: [id number] Date and time of Appointment No show : 01/23/25 11:00 PATIENT PHONE - [phone] PHONE NUMBER [CELLULAR] - [phone] Patient's medical record was reviewed. Follow-up actions were determined and initiated: Please check/complete as applies: [X]Telephoned Directly -- called x2 and left VM to encourage pt to jen in clinic [ ]Re-scheduled for next available appt [X]Sent a N0-show letter ( must call for appointment) [ ]Other (Emergent/Overbook, etc.): Additional Comments: Future Clinic Visits 01/25/2025 13:00 SPR PACT 3 PA WH 02/04/2025 09:00 SPR MHC SW 4 02/15/2025 11:00 [facility] 4 /es/ JES DAWKINS MD STAFF PSYCHIATRIST Signed: 01/23/2025 16:06 Receipt Acknowledged By: * AWAITING SIGNATURE * AJ OKEEFE,JES TAI
--- OUTSIDE RECORDS SUMMARY | 2025-01-23 18:41 | XMS_ITS | Encounter Summary ---
Author Name [facility] [place] Address [address] [place] [address] Support Name Relationship Address Phone ESPINOZAZACHARY ROCAEL Next of Kin [address] [place] [place] [address] ESPINOZAZACHARY ROCAEL Emergency Contact [address] [place], [place] [phone] Insurance Providers: All historical and current Section [...] Patient's Relationship to Policy [place] BCBS OF [facility] HIGH DEDUCTIBL E HEALTH PLAN WING DOMINIQUE [facility] February 07, 2017 [id number] MARCIE RAMIREZ PATIENT BCBS OF [facility] PREFERRED PROVIDER ORGANADRIAN WHITLEY (PPO) MACIEL GARNICA [facility] February 07, 2017 [id number] MARCIE RAMIREZ PATIENT Selected Encounter This section includes the information on record at [place] for the Encounter. Date/Time Encounter Type Encounter Description Reason Pro vider Source Jan 17, 2025 02:00 PM Outpatient Encounter [facility] Encounter Template Text not used by [place] Plan of Treatment: Future Appointments (+ 6 [...] 20 appointments. The data comes from all [place] treatment facilities. Appointment Date/Time Appointment Type Appointme nt Facility Name Jan 23, 2025 11:00 AM AMBULATORY - [facility]IATRY [facility] Jan 25, 2025 01:00 PM AMBULATORY - MEDICINE [facility] February 04, 2025 09:00 AM AMBULATORY - PSYCHIATRY [facility] February 15, 2025 11:00 AM AMBULATORY - PSYCHIATRY [facility] Active, Pending, and Scheduled Orders This section includes a listing of several types of active, pending, and scheduled orders, including clinic medications orders, diagnostic test orders, procedure orders and consult orders; where the start date of the order is 45 days before the date of the Encounter or 45 days after the date of theEncounter. The data comes from all [facility] facilities. Test Date/Time Test Type Test Details Facility Name Jan 02, 2025 01:54 PM [facility] Cons Programming Engineer's Choice [facility] Jan 02, 2025 01:58 PM Consult Order [facility] PS[facility]CH IATRIC MEDICATION/[facility] OUTPT Cons Programming Engineer's Choice [facility] Jan 02, 2025 01:58 PM Consult Order [facility] PSYCH OTHERAPY/[facility] OUTPT Cons Programming Engineer's Choice [facility] Lab Results: +/- 30 days of the encounter This section includes the Chemistry and Hematology Lab Results on record with [place] for the patient. Radiology Reports and Pathology Reports are provided separately, in subsequent sections. Lab Results This section contains the Chemistry/Hematology Results that were resulted 30 days before or 30 daysafter the date of the Encounter. Date/Time Source Result Type Result - Unit Interpretation Reference Range Specimen Type Comment Jan 02, 2025 10:23 AM [facility] CBC AND DIFF (AUTO) BLOOD Specimen Type: BLOOD No comment entered. Ordering Provider: FRED NGUYEN Report Released Date/Time: Jan 02, 2025 10:08 AM Reporting Lab: [address] [address] Performing Lab: [facility] [address] [facility] [address] WBC 11.14 10*3/uL H 4.50-11.00 RBC 5.59 [...] 10*3/uL 0.00-0.00 Jan 02, 2025 10:23 AM [facility] BASIC METABOLIC PANEL (non-fasting) SERUM Spe cimen Type: SERUM No comment entered. Ordering Provider: FRED NGUYEN Report Released Date/Time: Jan 02, 2025 10:08 AM Reporting Lab: [facility] [address] [facility] [address] Performing Lab: [facility] [address] [facility] [address] UREA NITROGEN 10 mg/dL 7-25 GLUCOSE 96 mg/dL 65-100 SODIUM 139 mmol/L 135-145 POTASSIUM 4.0 mmol/L 3.5-5.0 CHLORIDE 106 mmol/L 100-110 CO2 23 meq/L 20-30 CALCIUM 9.0 mg/dL 8.5-10.2 CREATININE, Serum 0.79 mg/dL 0.50-1.40 eGFR(CKD-EPI 2020) >90 mL/min >60 Jan 02, 2025 10:23 AM [facility] MAGNESIUM SERUM Specimen Type: SERUM No comment entered. Ordering Provider: FRED NGUYEN Report Released Date/Time: Jan 02, 2025 10:08 AM Reporting Lab: [address] [address] Performing Lab: [address] [address] MAGNESIUM 1.9 mg/dL 1.6-2.6 Jan 02, 2025 10:23 AM [facility] ETHANOL PLASMA Specimen Type: PLASM A No comment entered. Ordering Provider: FRED NGUYEN Report Released Date/Time: Jan 02, 2025 10:08 AM Reporting Lab: [address] [address] Performing Lab: [address] [address] ETHANOL <10 mg/dL <10 is Negative Jan 02, 2025 10:23 AM [facility] LIVER FUNCTION SERUM Specimen Type: SERUM No comment entered. Ordering Provider: FRED NGUYEN Report Released Date/Time: Jan 02, 2025 10:08 AM Reporting Lab: [address] [address] Performing Lab: [address] [address] PROTEIN,TOTAL 7.2 g/dL 6.0-8.3 ALBUMIN 3.9 g/dL 3.5-5.0 ALKALINE PHOSPHATASE 83 U/L 40-150 AST 17 U/L 5-34 ALT 15 U/L BILIRUBIN, TOTAL 0.6 mg/dL 0.2-1.2 Jan 02, 2025 10:23 AM [facility] DRUGS OF ABUSE URINE Specimen Type: URINE [...] Jan 02, 2025 10:08 AM Reporting Lab: [address] [address] Performing Lab: [address] [address] AMPHETAMINES SCREEN NONE-DETECTED None-Detected, Cutoff = 1000 [...] H 1.003-1.020 Jan 02, 2025 10:23 AM [facility] COVID-19 SCREENING PANEL (CEPHEID) NASOPHARYNX Spec imen Type: NASOPHARYNX Comment: This test is authorized for emergency use only. False negative results may occur if virus is present at levels below the analytical limit of detection.Negative results do not preclude SARS-CoV-2 infection and should not be used as the sole basis for treatment or other patient management decisions.Cepheid FLUVID: HCPs: https://www.fda.gov/media/743704/download. Patients: https://www.fda.gov/media/951173/download Ordering Provider: FRED NGUYEN Report Released Date/Time: Jan 02, 2025 10:08 AM Reporting Lab: [facility] [address] [facility] [address] Performing Lab: [facility] [address] [facility] [address] COVID-19 SCR (CEPHEID) NEGATIVE Negative Advance Directives: All historical and current Section Date Range: From patient's date of to the date document was created. This section includes ALL of a patient's completed or amended [place] Advance and Rescinded Directives. The entries below indicate that a directive exists for the patient, but an actual copy is not included with this document. The data comes from all [place] facilities. Date Advance Directives Provider Source Jan 02, 2025 ADVANCE DIRECTIVE DISCUSSION PEGGY REARDON [facility] Encounter Notes: All associated encounter notes This section contains the clinical notes associated to the Encounter. Date/Time Encounter Note(s) Provider Source Jan 17, 2025 02:00 PM CLERICAL NOTE: LOCAL TITLE: APPOINTMENT NO SHOW STANDARD TITLE: CLERICAL NOTE DATE OF NOTE: JAN 17, 2025@14:00 ENTRY DATE: JAN 17, 2025@14:20:33 AUTHOR: ALANNAH CONTRERAS EXP COSIGNER: URGENCY: STATUS: COMPLETED Patient Name: TICO RAMIREZ Patient SSN: [id number] Date and time of Appointment No show : 01/17/25 14:00 PATIENT PHONE - [phone] PHONE NUMBER [CELLULAR] - [phone] Patient's medical record was reviewed. Follow-up actions were determined and initiated: Please check/complete as applies: [X]Telephoned Directly [ ]Re-scheduled for next available appt [X]Sent a N0-show letter ( must call for appointment) [ ]Other (Emergent/Overbook, etc.): Additional Comments: Future Clinic Visits 01/23/2025 11:00 SPR MHC PSYTR 3 01/25/2025 13:00 SPR PACT 3 SARWAT TYSON /nahed/ ESTER EPSTEIN English As A Second Language Teacher Mental Health Signed: 01/17/2025 14:20 ALANNAH CONTRERAS
--- OUTSIDE RECORDS SUMMARY | 2025-01-23 18:41 | XMS_ITS ---
Author Name [facility] [place] Address [address] [place] [address] Support Name Relationship Address Phone ESPINOZAZACHARY ROCAEL Next of Kin [address] [place], [place] [phone] ROCAEL RAMIREZ Emergency Contact [address] [place] [place], [place] [phone] Insurance Providers: All historical and current Section [...] Patient's Relationship to Policy [place] BCBS OF [facility] HIGH DEDUCTIBL E HEALTH PLAN [facility] February 07, 2017 [id number] [phone] MARCIE RAMIREZ PATIENT BCBS OF [facility] PREFERRED PROVIDER ORGANIZAT ION (PPO) MACIEL GARNICA [facility] February 07, 2017 [id number] MARCIE RAMIREZ PATIENT Selected Encounter This section includes the information on record at [place] for the Encounter. Date/Time Encounter Type Encounter Description Reason Pro vider Source Jan 18, 2025 11:54 AM Outpatient Encounter ADMIN PAT ACTIVTIES (MASNONCT) [...] 20 appointments. The data comes from all [facility] facilities. Appointment Date/Time Appointment Type Appointme nt Facility Name Jan 23, 2025 11:00 AM AMBULATORY - PSYCHIATRY [facility] Jan 25, 2025 01:00 PM AMBULATORY - MEDICINE [facility] February 04, 2025 09:00 AM AMBULATORY - PSYCHIATRY [facility] February 15, 2025 11:00 AM AMBULATORY - PSYCHIATRY [facility] Active, Pending, and Scheduled Orders This section includes a listing of several types of active, pending, and scheduled orders, including clinic medications orders, diagnostic test orders, procedure orders and consult orders; where the start date of the order is 45 days before the date of the Encounter or 45 days after the date of theEncounter. The data comes from all [facility]. Test Date/Time Test Type Test Details Facility Name Jan 02, 2025 01:54 PM Consult Order [facility] OUTPT Cons Database Marketing Manager's Choice [facility] Jan 02, 2025 01:58 PM Consult Order [facility] PSYCH IATRIC MEDICATION/SOPC OUTPT Cons Database Marketing Manager's Choice [facility] Jan 02, 2025 01:58 PM Consult Order [facility] PSYCH OTHERAPY/SOPC OUTPT Cons Database Marketing Manager's Choice [facility] Lab Results: +/- 30 days of the encounter This section includes the Chemistry and Hematology Lab Results on record with [place] for the patient. Radiology Reports and Pathology Reports are provided separately, in subsequent sections. Lab Results This section contains the Chemistry/Hematology Results that were resulted 30 days before or 30 daysafter the date of the Encounter. Date/Time Source Result Type Result - Unit Interpretation Reference Range Specimen Type Comment Jan 02, 2025 10:23 AM [facility] CBC AND DIFF (AUTO) BLOOD Specimen Type: BLOOD No comment entered. Ordering Provider: FRED NGUYEN Report Released Date/Time: Jan 02, 2025 10:08 AM Reporting Lab: [address] [place] [address] Performing Lab: [facility] [address] [facility] [address] WBC 11.14 10*3/uL H 4.50-11.00 RBC 5.59 [...] 10*3/uL 0.00-0.00 Jan 02, 2025 10:23 AM [facility] BASIC METABOLIC PANEL (non-fasting) SERUM Spe cimen Type: SERUM No comment entered. Ordering Provider: FRED NGUYEN Report Released Date/Time: Jan 02, 2025 10:08 AM Reporting Lab: [facility] [address] [facility] [address] Performing Lab: [address] [address] UREA NITROGEN 10 mg/dL 7-25 GLUCOSE 96 mg/dL 65-100 SODIUM 139 mmol/L 135-145 POTASSIUM 4.0 mmol/L 3.5-5.0 CHLORIDE 106 mmol/L 100-110 CO2 23 meq/L 20-30 CALCIUM 9.0 mg/dL 8.5-10.2 CREATININE, Serum 0.79 mg/dL 0.50-1.40 eGFR(CKD-EPI 2020) >90 mL/min >60 Jan 02, 2025 10:23 AM [facility] MAGNESIUM SERUM Specimen Type: SERUM No comment entered. Ordering Provider: FRED NGUYEN Report Released Date/Time: Jan 02, 2025 10:08 AM Reporting Lab: [address] [address] Performing Lab: [address] [address] MAGNESIUM 1.9 mg/dL 1.6-2.6 Jan 02, 2025 10:23 AM [facility] ETHANOL PLASMA Specimen Type: PLASM A No comment entered. Ordering Provider: FRED NGUYEN Report Released Date/Time: Jan 02, 2025 10:08 AM Reporting Lab: [address] [address] Performing Lab: [address] [address] ETHANOL <10 mg/dL <10 is Negative Jan 02, 2025 10:23 AM [facility] LIVER FUNCTION SERUM Specimen Type: SERUM No comment entered. Ordering Provider: FRED NGUYEN Report Released Date/Time: Jan 02, 2025 10:08 AM Reporting Lab: [address] [address] Performing Lab: [address] [address] PROTEIN,TOTAL 7.2 g/dL 6.0-8.3 ALBUMIN 3.9 g/dL 3.5-5.0 ALKALINE PHOSPHATASE 83 U/L 40-150 AST 17 U/L 5-34 ALT 15 U/L BILIRUBIN, TOTAL 0.6 mg/dL 0.2-1.2 Jan 02, 2025 10:23 AM [facility] DRUGS OF ABUSE URINE Specimen Type: URIN E Comment: Urine with Cr <5 is diluted [...] CONFIRMATION NOT SENT BY LAB.. Ordering Provider: FRDE NGUYEN Report Released Date/Time: Jan 02, 2025 10:08 AM Reporting Lab: [address] [address] Performing Lab: [address] [address] AMPHETAMINES SCREEN NONE-DETECTED None-Detected, Cutoff = 1000 [...] H 1.003-1.020 Jan 02, 2025 10:23 AM [facility] COVID-19 SCREENING PANEL (CEPHEID) NASOPHARYNX Spec imen Type: NASOPHARYNX Comment: This test is authorized for emergency use only. False negative results may occur if virus is present at levels below the analytical limit of detection.Negative results do not preclude SARS-CoV-2 infection and should not be used as the sole basis for treatment or other patient management decisions.Cepheid FLUVID: HCPs: https://www.fda.gov/media/740116/download. Patients: https://www.fda.gov/media/132555/download Ordering Provider: FRED NGUYEN Report Released Date/Time: Jan 02, 2025 10:08 AM Reporting Lab: [facility] [address] [facility] [address] Performing Lab: [facility] [address] [facility] [address] COVID-19 SCR (CEPHEID) NEGATIVE Negative Advance Directives: All historical and current Section Date Range: From patient's date of to the date document was created. This section includes ALL of a patient's completed or amended [place] Advance and Rescinded Directives. The entries below indicate that a directive exists for the patient, but an actual copy is not included with this document. The data comes from all [place] facilities. Date Advance Directives Provider Source Jan 02, 2025 ADVANCE DIRECTIVE DISCUSSION PEGGY REARDON [facility] Encounter Notes: All associated encounter notes This section contains the clinical notes associated to the Encounter. Date/Time Encounter Note(s) Provider Source Jan 18, 2025 11:55 AM DRILL RIG OPERATOR NOTE: LOCAL TITLE: POST 911 CASE MANAGEMENT SCREENING STANDARD TITLE: DRILL RIG OPERATOR NOTE DATE OF NOTE: JAN 18, 2025@11:55 ENTRY DATE: JAN 18, 2025@11:55:08 AUTHOR: KONSTANTIN MOREJON EXP COSIGNER: HATTIE BRODERICK URGENCY: STATUS: COMPLETED Post 06/13 Case Management Screen Unable to Contact First attempt to contact patient for Post 06/13 Case Management Screen was unsuccessful. Comment: Left a VM for the . TW called this to complete a TCM Screen which is part of the TCM national measure. The did not pear picker the phone, so I left a VM with all my contact information on it. /nahed/ KONSTANTIN MOREJON Transitional Patient Advocate Signed: 01/18/2025 11:56 /es/ ESTER Yan LICENSED CLINICAL BURLAP BAG SEWER Cosigned: 01/21/2025 12:16 KONSTANTIN MOREJON [facility]
--- OUTSIDE RECORDS SUMMARY | 2025-01-23 18:41 | XMS_ITS | Continuity of Care Document ---
Author Name [facility] Organization [facility] Care Team Providers Care Protective Signal Operations Supervisor Name Role Phone [facility] Unavailable Unavailable Problems Combined list of problems from Department of Defense and Veterans Affairs facilities. It does not include entries that were removed or entered in error. 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) Active Condition DoD EXAM, OCCUPATIONAL, HALFWAY OR SEPARATION FROM [employer], LONG Active Condition DoD Pain in left shoulder Active Condition DoD anxiety Active Condition DoD insomnia Active Condition DoD Other Physical Therapy Active Condition DoD joint pain, localized in the left shoulder Active Condition DoD SHOULDER SPRAIN LEFT Active Condition DoD SINUSITIS Active Condition DoD nausea with vomiting Inactive Condition DoD diarrhea Active Condition DoD visit for: administrative purpose Inactive Condition DoD GASTROENTERITIS VIRAL Inactive Condition DoD UPPER RESPIRATORY INFECTION Inactive Condition DoD VIRAL SYNDROME Inactive Condition DoD visit for: ears / hearing exam Active Condition DoD CLOSED STRESS FRACTURE OF TIBIA Active Condition DoD joint pain in the left knee Inactive Condition 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 DoD visit for: screening mental / developmental disorders Inactive Condition DoD ATYPICAL CHEST PAIN Inactive Condition D oD Need For Vaccination Hepatitis A Inactive Condition DoD joint pain, localized in the right shoulder Active Condition DoD visit for: screening exam Inactive Condition DoD Body Mass Index Inactive Condition DoD Patient Education - Dietary Active Condition DoD visit for: screening exam hypertension Inactive Condition DoD Patient Education - Injury Prevention Active Condition DoD Patient Education - Medication Active Condition DoD GASTROENTERITIS Inactive Condition DoD UPPER RESPIRATORY INFECTION ACUTE Inactive Condition DoD visit for: services physical accession Active Condition DoD visit for: screening exam pulmonary tuberculosis Inactive Condition DoD Vaccines Prophylactic Need Against Influenza Inactive Condition DoD Vaccines Prophylactic Need Against Viral Diseases Inactive Condition DoD visit: ears/hearing exam for hearing conservation, treatment Inactive Condition DoD visit for: services physical Active Condition DoD Diagnosis: ICD-10-CM F11.20 Opioid dependence, uncomplicated Active Diagnosis [facility] Diagnosis: ICD-10-CM F14.10 Cocaine abuse, uncomplicated Active Diagnosis [facility] Admit Reason: SUDS, PTSD Active Diagnosis [facility] Diagnosis: ICD-10-CM Z13.6 Encounter for screening for cardiovascular disorders Active Diagnosis [facility] Diagnosis: ICD-10-CM F11.23 Opioid dependence with withdrawal Active Diagnosis [facility] Medications Combined list of outpatient medications from Department of Defense and Veterans Affairs facilities.Medications provided include 1) outpatient medications from the last 15 months, and 2) patient-reported medications. Medication Details Route Status Patient Instructions Prescription Expires Prescription Number Last Dispense Date Ordering Provider Order Date Order Qty Source CLONIDINE HCL 0.1MG TAB TAKE ONE TABLET BY MOUTH NOW ORAL ACTIVE 02/01/2025 [id number] ANDREW NGUYEN 2024 1 [facility] Allergies, Adverse Reactions, Alerts Combined list of allergies from Department of Defense and Veterans Affairs facilities. It does not include entries that were removed or entered in error. Substance Category Reaction Severity Reaction type Status Date Reported Comments Source PENICILLIN Propensity to adverse reactions to drug (finding) active 6 [facility] PENICILLIN Propensity to adverse reactions to drug (finding) Eruption active 5 [facility] Penicillins Drug allergy (disorder) Unknown active 2 [facility], [place], [place] Immunizations Combined list of available immunizations from the Department of Defense and Veterans Affairs facilities. Immunization Series Date Given Administered By Site Reaction Lot Number CVX Code Drug Weir Fisherman Status Comments Source FLU,3 YRS (HISTORICAL) 2015 88 complet ed Site: Right Deltoid [facility] FLU,3 YRS (HISTORICAL) 2015 88 complet ed [facility] influenza, live, intranasal, quadrivalent 1 2014 [id number] [employer]. (MED) complet ed influenza , live, intranasa l, quadrival ent DoD measles, mumps and rubella virus vaccine 1 2014 UNK 03 Unknown (UNK) Not Given measles, mumps and rubella virus vaccine DoD varicella virus vaccine 1 2014 UNK 21 Unknown (UNK) Not Given varicella virus vaccine DoD influenza, live, intranasal, quadrivalent 1 2013 [id number] [employer]. (MED) complet ed influenza , live, intranasa l, quadrival ent DoD Influenza, seasonal, injectable, preservative free 1 2012 [id number] 140 Sanofi Pasteur (PMC) complet ed Influenza , seasonal, injectabl e, preservat sabine free DoD hepatitis A vaccine, adult dosage 2 2012 ARABELLA BARAHONA [id number] 52 Smithine (SKB) complet ed hepatitis A vaccine, adult dosage DoD hepatitis B vaccine, adult dosage 1 2011 UNK 43 Unknown (UNK) Not Given hepatitis B vaccine, adult dosage DoD hepatitis A vaccine, adult dosage 1 2011 [id number] 52 Smithine (SKB) complet ed hepatitis A vaccine, adult dosage DoD influenza virus vaccine, live, attenuated, for intranasal use 1 2011 [id number] [employer] (CSL) complet ed influenza virus vaccine, live, attenuate d, for intranasa l use DoD Adenovirus, type 4 and type 7, live, oral 1 2011 [id number] 143 [facility] ([facility]) complet ed Adenoviru s, type 4 and type 7, live, oral DoD poliovirus vaccine, inactivated 1 2011 [id number] 10 Sanofi Pasteur (PMC) complet ed polioviru s vaccine, inactivat ed DoD meningococcal polysaccharid e (groups A, C, Y and W-135) diphtheria toxoid conjugate vaccine (MCV4P) 1 2011 [id number] 114 [employer] (SKB) complet ed meningoco ccal polysacch aride (groups A, C, Y and W-135) diphtheri a toxoid conjugate vaccine (MCV4P) DoD tetanus toxoid, reduced diphtheria toxoid, and acellular pertu is vaccine, adsorbed 1 2011 [id number] 115 Sanofi Pasteur (PMC) complet ed tetanus toxoid, reduced diphtheri a toxoid, and acellular pertussis vaccine, adsorbed DoD Results Combined list of recent chemistry, hematology [...] Jan 02, 2025 10:08 AM Reporting Lab: [facility] [place] [facility] [address] [address] Performing Lab: [facility] [place] [address] [phone] [place], [place] [address] [place] [facility] CBC AND DIFF (AUTO) ERYTHROCYT ES [#/VOLUME] IN BLOOD BY AUTOMATED COUNT 5.59 10*6/uL 4.23 - 5.66 01/02 Specimen Type: BLOOD No comment entered. Ordering Provider: NIKI NGUYEN Report Released Date/Time: Jan 02, 2025 10:08 AM Reporting Lab: [facility] [place] [facility] [address] [address] Performing Lab: [facility] [place] [facility] [address] [phone] [place], [place] [address] [place] [facility] CBC AND DIFF (AUTO) HEMOGLOBIN [MASS/VOLU ME] IN BLOOD 13.9 g/dL 12.8 - 17 01/02 Specimen Type: BLOOD No comment entered. Ordering Provider: NIKI NGUYEN Report Released Date/Time: Jan 02, 2025 10:08 AM Reporting Lab: [facility] [place] [facility] [address] [address] Performing Lab: [facility] [place] [address] [address] [facility] [place] [facility] CBC AND DIFF (AUTO) HEMATOCRIT [VOLUME FRACTION] OF BLOOD BY AUTOMATED COUNT 43.6 39.2 - 50.4 01/02 Specimen Type: BLOOD No comment entered. Ordering Provider: NIKI NGUYEN Report Released Date/Time: Jan 02, 2025 10:08 AM Reporting Lab: [facility] [place] [facility] [address] [address] Performing Lab: [facility] [place] [facility] [address] [facility] [address] [facility] [place] [facility] CBC AND DIFF (AUTO) MCV [ENTITIC VOLUME] BY AUTOMATED COUNT 78.0 fL 82 - 99 01/02 L Specimen Type: BLOOD No comment entered. Ordering Provider: NIKI NGUYEN Report Released Date/Time: Jan 02, 2025 10:08 AM Reporting Lab: [facility] [place] [facility] [address] [facility] [address] Performing Lab: [facility] [place] [facility] [address] [address] [facility] [place] [facility] CBC AND DIFF (AUTO) MCHC [MASS/VOLU ME] BY AUTOMATED COUNT 31.9 g/dL 30.8 - 35.1 01/02 Specimen Type: BLOOD No comment entered. Ordering Provider: NIKI NUGYEN Report Released Date/Time: Jan 02, 2025 10:08 AM Reporting Lab: [facility] [place] [facility] [address] [facility] [facility] [address] Performing Lab: [facility] [place] [facility] [address] [facility] [facility] [address] [facility] [place] [facility] CBC AND DIFF (AUTO) PLATELETS [#/VOLUME] IN BLOOD BY AUTOMATED COUNT 319 10*3/uL 140 - 360 01/02 Specimen Type: BLOOD No comment entered. Ordering Provider: NIKI NGUYEN Report Released Date/Time: Jan 02, 2025 10:08 AM Reporting Lab: [facility] [place] [facility] [address] [facility] [facility] [address] Performing Lab: [facility] [place] [facility] [address] [address] [facility] [place] [facility] CBC AND DIFF (AUTO) PLATELET MEAN VOLUME [ENTITIC VOLUME] IN BLOOD BY AUTOMATED COUNT 9.1 fL 9.2 - 12.4 01/02 L Specimen Type: BLOOD No comment entered. Ordering Provider: NIKI NGUYEN Report Released Date/Time: Jan 02, 2025 10:08 AM Reporting Lab: [facility] [place] [address] [address] Performing Lab: [facility] [place] [facility] [address] [place], [place] [address] [facility] CBC AND DIFF (AUTO) ERYTHROCYT E DISTRIBUTI ON WIDTH [RATIO] BY AUTOMATED COUNT 13.4 12.0 - 16.0 01/02 Specimen Type: BLOOD No comment entered. Ordering Provider: NIKI NGUYEN Report Released Date/Time: Jan 02, 2025 10:08 AM Reporting Lab: [facility] [place] [address] [address] Performing Lab: [facility] [place] [facility]ENTER[facility] [phone] [place], [place] [address] [facility] CBC AND DIFF (AUTO) MONOCYTES [#/VOLUME] IN BLOOD BY AUTOMATED COUNT 0.76 10*3/uL 0.30 - 1.10 01/02 Specimen Type: BLOOD No comment entered. Ordering Provider: NIKI NGUYEN Report Released Date/Time: Jan 02, 2025 10:08 AM Reporting Lab: [facility]ENTER[facility] [address] Performing Lab: [facility] [address] [place], [place] [address] [facility] CBC AND DIFF (AUTO) MCH [ENTITIC MASS] BY AUTOMATED COUNT 24.9 pg 26.2 - 32.6 01/02 L Specimen Type: BLOOD No comment entered. Ordering Provider: NIKI NGUYEN Report Released Date/Time: Jan 02, 2025 10:08 AM Reporting Lab: [facility] [place] [facility] [address] Performing Lab: [facility] [place] [facility] [address] [address] [facility] [place] [facility] CBC AND DIFF (AUTO) NEUTROPHIL S/100 LEUKOCYTES IN BLOOD BY AUTOMATED COUNT 69.0 43.7 - 75.8 01/02 Specimen Type: BLOOD No comment entered. Ordering Provider: NIKI NGUYEN Report Released Date/Time: Jan 02, 2025 10:08 AM Reporting Lab: [facility] [place] [facility] [address] [facility] [address] Performing Lab: [facility] [place] [facility] [address] [facility] [facility] [address] [facility] [place] [facility] CBC AND DIFF (AUTO) LYMPHOCYTE S/100 LEUKOCYTES IN BLOOD BY AUTOMATED COUNT 21.3 14.0 - 42.3 01/02 Specimen Type: BLOOD No comment entered. Ordering Provider: NIKI NGUYEN Report Released Date/Time: Jan 02, 2025 10:08 AM Reporting Lab: [facility] [place] [facility] [address] [facility] [address] Performing Lab: [facility] [place] [facility] [address] [facility] [address] [facility] [place] [facility] CBC AND DIFF (AUTO) MONOCYTES/ 100 LEUKOCYTES IN BLOOD BY AUTOMATED COUNT 6.8 5.1 - 13.7 01/02 Specimen Type: BLOOD No comment entered. Ordering Provider: NIKI NGUYEN Report Released Date/Time: Jan 02, 2025 10:08 AM Reporting Lab: [facility] [place] [facility] [address] [facility] [address] Performing Lab: [facility] [place] [facility] [address] [facility] [address] [facility] [place] [facility] CBC AND DIFF (AUTO) EOSINOPHIL S/100 LEUKOCYTES IN BLOOD BY AUTOMATED COUNT 2.0 0.4 - 6.8 01/02 Specimen Type: BLOOD No comment entered. Ordering Provider: NIKI NGUYEN Report Released Date/Time: Jan 02, 2025 10:08 AM Reporting Lab: [facility] [place] [facility] [address] [address] Performing Lab: [facility] [place] [facility] [address] [address] [facility] [place] [facility] CBC AND DIFF (AUTO) BASOPHILS/ 100 LEUKOCYTES IN BLOOD BY AUTOMATED COUNT 0.7 0.1 - 2.0 01/02 Specimen Type: BLOOD No comment entered. Ordering Provider: NIKI NGUYEN Report Released Date/Time: Jan 02, 2025 10:08 AM Reporting Lab: [facility] [place] [facility] [address] [address] Performing Lab: [facility] [place] [facility] [address] [address] [facility] [place] [facility] CBC AND DIFF (AUTO) NEUTROPHIL S [#/VOLUME] IN BLOOD BY AUTOMATED COUNT 7.69 10*3/uL 2.20 - 7.60 01/02 H Specimen Type: BLOOD No comment entered. Ordering Provider: NIKI NGUYEN Report Released Date/Time: Jan 02, 2025 10:08 AM Reporting Lab: [facility] [place] [facility] [address] [facility] [address] Performing Lab: [facility] [place] [facility] [address] [address] [facility] [place] [facility] CBC AND DIFF (AUTO) LYMPHOCYTE S [#/VOLUME] IN BLOOD BY AUTOMATED COUNT 2.37 10*3/uL 1.00 - 3.20 01/02 Specimen Type: BLOOD No comment entered. Ordering Provider: NIKI NGUYEN Report Released Date/Time: Jan 02, 2025 10:08 AM Reporting Lab: [facility] [place] [facility] [address] [facility] [address] Performing Lab: [facility] [place] [facility] [address] [address] [facility] [place] [facility] CBC AND DIFF (AUTO) EOSINOPHIL S [#/VOLUME] IN BLOOD BY AUTOMATED COUNT 0.22 10*3/uL 0.03 - 0.44 04/02 /2025 Specimen Type: BLOOD No comment entered. Ordering Provider: NIKI NGUYEN Report Released Date/Time: Jan 02, 2025 10:08 AM Reporting Lab: [facility] [place] [facility] [address] [facility] [address] Performing Lab: [facility] [place] [address] [address] [facility] [place] [facility] CBC AND DIFF (AUTO) BASOPHILS [#/VOLUME] IN BLOOD BY AUTOMATED COUNT 0.08 10*3/uL 0.01 - 0.13 01/02 Specimen Type: BLOOD No comment entered. Ordering Provider: NIKI NGUYEN Report Released Date/Time: Jan 02, 2025 10:08 AM Reporting Lab: [facility] [place] [address] [address] Performing Lab: [place] [facility] [place] [address] [address] [facility] [place] [facility] CBC AND DIFF (AUTO) IMMATURE GRANULOCYT ES/100 LEUKOCYTES IN BLOOD BY AUTOMATED COUNT 0.2 0.0 - 0.7 01/02 Specimen Type: BLOOD No comment entered. Ordering Provider: NIKI NGUYEN Report Released Date/Time: Jan 02, 2025 10:08 AM Reporting Lab: [facility] [place] [address] [address] Performing Lab: [facility] [place] [address] [address] [facility] [place] [facility] CBC AND DIFF (AUTO) IMMATURE GRANULOCYT ES [#/VOLUME] IN BLOOD BY AUTOMATED COUNT 0.02 10*3/uL 0.00 - 0.06 01/02 Specimen Type: BLOOD No comment entered. Ordering Provider: NIKI NGUYEN Report Released Date/Time: Jan 02, 2025 10:08 AM Reporting Lab: [facility] [place] [address] [address] Performing Lab: [facility] [place] [address] [address] [facility] CBC AND DIFF (AUTO) NUCLEATED ERYTHROCYT ES/100 LEUKOCYTES [RATIO] IN BLOOD BY AUTOMATED COUNT 0.0 0.0 - 0.0 01/02 Specimen Type: BLOOD No comment entered. Ordering Provider: NIKI NGUYEN Report Released Date/Time: Jan 02, 2025 10:08 AM Reporting Lab: [facility]USEST[facility] [address] [address] Performing Lab: [facility]ITALRL TRN [facility]USEST[facility] [address] [address] [place] [address] [facility] CBC AND DIFF (AUTO) NUCLEATED ERYTHROCYT ES [#/VOLUME] IN BLOOD BY AUTOMATED COUNT 0.00 10*3/uL 0.00 - 0.00 01/02 Specimen Type: BLOOD No comment entered. Ordering Provider: NIKI NGUYEN Report Released Date/Time: Jan 02, 2025 10:08 AM Reporting Lab: [facility]ENTERUSE[facility] [address] [address] Performing Lab: [facility]ITALR[facility] [address] [phone] [address] [place], [place] [address] [facility] BASIC METABOLI C PANEL (non-fas ting) UREA NITROGEN [MASS/VOLU ME] IN SERUM OR PLASMA 10 mg/dL 7 - 25 01/02 Specimen Type: SERUM No comment entered. Ordering Provider: NIKI NGUYEN Report Released Date/Time: Jan 02, 2025 10:08 AM Reporting Lab: [facility]ITALRL TRN [facility]USE[facility] [address] [facility] [address] Performing Lab: [facility]ENTERUSE[address] [address] [facility] BASIC METABOLI C PANEL (non-fas ting) GLUCOSE [MASS/VOLU ME] IN SERUM OR PLASMA 96 mg/dL 65 - 100 01/02 Specimen Type: SERUM No comment entered. Ordering Provider: NIKI NGUYEN Report Released Date/Time: Jan 02, 2025 10:08 AM Reporting Lab: [facility] [place] [facility] [address] [facility] [address] Performing Lab: [facility] [place] [facility] [address] [facility] [address] [facility] [place] [facility] BASIC METABOLI C PANEL (non-fas ting) SODIUM [MOLES/VOL UME] IN SERUM OR PLASMA 139 mmol/L 135 - 145 01/02 Specimen Type: SERUM No comment entered. Ordering Provider: NIKI NGUYEN RAMY J Report Released Date/Time: Jan 02, 2025 10:08 AM Reporting Lab: [facility] [place] [facility] [address] [address] Performing Lab: [place] [facility] [facility] [address] [facility] [address] [facility]ITALRL WSTRN [facility]SE [facility] BASIC METABOLI C PANEL (non-fas ting) POTASSIUM [MOLES/VOL UME] IN SERUM OR PLASMA 4.0 mmol/L 3.5 - 5.0 01/02 Specimen Type: SERUM No comment entered. Ordering Provider: NIKI NGUYEN RMAY J Report Released Date/Time: Jan 02, 2025 10:08 AM Reporting Lab: [facility] [place] [facility] [address] [facility] [address] Performing Lab: [facility] [place] [facility] [address] [facility] [address] [facility] [place] [facility] BASIC METABOLI C PANEL (non-fas ting) CHLORIDE [MOLES/VOL UME] IN SERUM OR PLASMA 106 mmol/L 100 - 110 01/02 Specimen Type: SERUM No comment entered. Ordering Provider: NIKI NGUYEN RAMY J Report Released Date/Time: Jan 02, 2025 10:08 AM Reporting Lab: [facility] [place] [facility] [address] [facility] [address] Performing Lab: [facility] [place] [address] [address] [facility] [place] [facility] BASIC METABOLI C PANEL (non-fas ting) CARBON DIOXIDE, TOTAL [MOLES/VOL UME] IN SERUM OR PLASMA 23 meq/L 20 - 30 01/02 Specimen Type: SERUM No comment entered. Ordering Provider: NIKI NGUYEN Report Released Date/Time: Jan 02, 2025 10:08 AM Reporting Lab: [address] [address] Performing Lab: [address] [address] [facility] BASIC METABOLI C PANEL (non-fas ting) CALCIUM [MASS/VOLU ME] IN SERUM OR PLASMA 9.0 mg/dL 8.5 - 10.2 01/02 Specimen Type: SERUM No comment entered. Ordering Provider: NIKI NGUYEN Report Released Date/Time: Jan 02, 2025 10:08 AM Reporting Lab: [address] [address] Performing Lab: [address] [address] [facility] BASIC METABOLI C PANEL (non-fas ting) CREATININE [MASS/VOLU ME] IN SERUM OR PLASMA 0.79 mg/dL 0.50 - 1.40 01/02 Specimen Type: SERUM No comment entered. Ordering Provider: NIKI NGUYEN Report Released Date/Time: Jan 02, 2025 10:08 AM Reporting Lab: [address] [address] Performing Lab: [address] [address] [facility] BASIC METABOLI C PANEL (non-fas ting) GLOMERULAR FILTRATION RATE/1.73 SQ M.PREDICTE D [VOLUME RATE/AREA] IN SERUM, PLASMA OR BLOOD BY CREATININE -BASED FORMULA (CKD-EPI 2020) >90mL/mi n 60 01/02 Specimen Type: SERUM No comment entered. Ordering Provider: NIKI NGUYEN Report Released Date/Time: Jan 02, 2025 10:08 AM Reporting Lab: [facility] [place] [facility] [address] [address] Performing Lab: [facility] [place] [facility] [address] [facility] [address] [facility] [place] [facility] MAGNESIU M MAGNESIUM [MASS/VOLU ME] IN SERUM OR PLASMA 1.9 mg/dL 1.6 - 2.6 01/02 Specimen Type: SERUM No comment entered. Ordering Provider: NIKI NGUYEN RAMY J Report Released Date/Time: Jan 02, 2025 10:08 AM Reporting Lab: [facility] [place] [facility] [address] [facility] [address] Performing Lab: [place] [facility] [place] [facility] [address] [address] [facility] ETHANOL ETHANOL [MASS/VOLU ME] IN SERUM OR PLASMA <10mg/dL <10 is Negative - 10 01/02 Specimen Type: PLASMA No comment entered. Ordering Provider: NIKI NGUYEN RAMY J Report Released Date/Time: Jan 02, 2025 10:08 AM Reporting Lab: [facility] [place] [facility] [address] [facility] [address] Performing Lab: [facility] [place] [facility] [address] [facility] [address] [facility] [facility] LIVER FUNCTION PROTEIN [MASS/VOLU ME] IN SERUM OR PLASMA 7.2 g/dL 6.0 - 8.3 01/02 Specimen Type: SERUM No comment entered. Ordering Provider: NIKI NGUYEN RAMY J Report Released Date/Time: Jan 02, 2025 10:08 AM Reporting Lab: [facility] [place] [facility] [address] [facility] [address] Performing Lab: [facility] [place] [facility] [address] [facility] [address] [facility] LIVER FUNCTION ALBUMIN [MASS/VOLU ME] IN SERUM OR PLASMA BY BROMOCRESO L PURPLE (BCP) DYE BINDING METHOD 3.9 g/dL 3.5 - 5.0 04/02 /2025 Specimen Type: SERUM No comment entered. Ordering Provider: NIKI NGUYEN RAMY J Report Released Date/Time: Jan 02, 2025 10:08 AM Reporting Lab: [facility] [place] [facility] [address] [facility] [address] Performing Lab: [facility] [address] [facility] [address] [facility] [place] [facility] LIVER FUNCTION ALKALINE PHOSPHATAS E [ENZYMATIC ACTIVITY/V OLUME] IN SERUM OR PLASMA 83 U/L 40 - 150 01/02 Specimen Type: SERUM No comment entered. Ordering Provider: NIIK NGUYEN RAMY Lanette Report Released Date/Time: Jan 02, 2025 10:08 AM Reporting Lab: [place] [facility] [facility] [address] [facility] [address] Performing Lab: [place] [facility] [facility] [address] [facility] [address] [place] [facility] [facility] LIVER FUNCTION ASPARTATE AMINOTRANS FERASE [ENZYMATIC ACTIVITY/V OLUME] IN SERUM OR PLASMA BY WITH P-5'-P 17 U/L 5 - 34 01/02 Specimen Type: SERUM No comment entered. Ordering Provider: NIKI NGUYEN Report Released Date/Time: Jan 02, 2025 10:08 AM Reporting Lab: [facility] [place] [facility] [address] [facility] [address] Performing Lab: [facility] [place] [facility] [address] [facility] [address] [place] [facility] [facility] LIVER FUNCTION ALANINE AMINOTRANS FERASE [ENZYMATIC ACTIVITY/V OLUME] IN SERUM OR PLASMA BY WITH P-5'-P 15 U/L 01/02 Specimen Type: SERUM No comment entered. Ordering Provider: NIKI NGUYEN RAMY J Report Released Date/Time: Jan 02, 2025 10:08 AM Reporting Lab: [place] [facility] [facility] [address] [facility] [address] Performing Lab: [facility] [place] [facility] [address] [facility] [address] [facility] LIVER FUNCTION BILIRUBIN. TOTAL [MASS/VOLU ME] IN SERUM OR PLASMA 0.6 mg/dL 0.2 - 1.2 01/02 Specimen Type: SERUM No comment entered. Ordering Provider: NIKI NGUYEN J Report Released Date/Time: Jan 02, 2025 10:08 AM Reporting Lab: [address] [address] Performing Lab: [address] [address] [facility] DRUGS OF ABUSE AMPHETAMIN E+METHAMPH ETAMINE [...] Jan 02, 2025 10:08 AM Reporting Lab: [address] [address] Performing Lab: [address] [address] [facility]UGS [facility]BUSE BENZODIAZE PINES [[place]] [...] Jan 02, 2025 10:08 AM Reporting Lab: [address] [address] Performing Lab: [address] [address] [facility] DRUGS OF ABUSE BENZOYLECG ONINE [[place]] [...] Jan 02, 2025 10:08 AM Reporting Lab: [address] [address] Performing Lab: [address] [address] [facility] DRUGS OF ABUSE OPIATES [[place]] IN [...] Jan 02, 2025 10:08 AM Reporting Lab: [address] [address] Performing Lab: [address] [address] [facility]UGS [facility] ABUSE CANNABINOI DS [[place]] [...] Jan 02, 2025 10:08 AM Reporting Lab: [address] [address] Performing Lab: [address] [address] [facility] DRUGS OF ABUSE BARBITURAT ES [[place]] [...] Jan 02, 2025 10:08 AM Reporting Lab: [address] [address] Performing Lab: [address] [address] [facility] DRUGS [facility] ABUSE OXYCODONE [[place]] IN [...] Jan 02, 2025 10:08 AM Reporting Lab: [address] [address] Performing Lab: [address] [address] [facility] DRUGS OF ABUSE BUPRENORPH INE [[place]] IN [...] Jan 02, 2025 10:08 AM Reporting Lab: [facility] [address] Performing Lab: [address] [address] [facility] DRUGS OF ABUSE ETHANOL [MASS/VOLU ME] [...] Jan 02, 2025 10:08 AM Reporting Lab: [address] [address] Performing Lab: [address] [address] [facility] DRUGS OF ABUSE FENTANYL [[place]] IN [...] Jan 02, 2025 10:08 AM Reporting Lab: [address] [address] Performing Lab: [address] [address] [facility] DRUGS [facility] ABUSE PH OF URINE [...] Jan 02, 2025 10:08 AM Reporting Lab: [facility] [address] Performing Lab: [address] [address] [facility] DRUGS OF ABUSE CREATININE [MASS/VOLU ME] [...] N NOT SENT BY LAB.. Ordering Provider: INKI NGUYEN J Report Released Date/Time: Jan 02, 2025 10:08 AM Reporting Lab: [facility] [address] Performing Lab: [address] [address] [facility] DRUGS OF ABUSE SPECIFIC GRAVITY OF [...] Jan 02, 2025 10:08 AM Reporting Lab: [facility] [place] [address] [address] Performing Lab: [address] [address] [facility] COVID-19 SCREENIN G PANEL ([employer] ) SARS-COV-2 (COVID-19) RNA [[place]] IN RESPIRATOR [...] patient management decisions.C epheid FLUVID: HCPs: https://www .fda.gov/md marilin/161008/ download. Patients: https://www .fda.gov/md marilin/155728/ download Ordering Provider: NIKI NGUYEN Report Released Date/Time: Jan 02, 2025 10:08 AM Reporting Lab: [address] [address] Performing Lab: [address] [address] [facility] Vital Signs Combined list of inpatient and outpatient Vital Signs from Department of Defense and Veterans Affairs, ranging from 12 months to all on record, depending upon the facility. Vital Sign Value Date Comments Source PAIN 3 01/02/2025 14:13:00 [facility] Encounters Combined list of: 1) Encounters from Department of Veterans Affairs facilities going backup to the last 18 months, not all [place] inpatient encounters are included; 2) Encounters from the Department of Defense facilities going backup to 280 months. Location Location Details Encounter Type Encounter Number Reason For Visit Attending Provider ADM Date DC Date Status Disposition Source [place] [facility] [place] OUTPATIENT [id number] LILIA RICHARDS 06/09 Released w/o Limitations [facility] [facility] [place] [facility]) [facility] [facility] [place] OUTPAT[place] [id number] NEENA SEO 06/12 Released w/o Limitations [place] [place] [facility] [place] [id number] hearing test NURY BERMUDEZ 06/12 [facility] Limitations [facility] [place] [facility] [place] OUTPATIENT [id number] URI coughin g / PULM shortne ss of breath YENIFER GARZA 06/30 Released with Work/Duty Limitations [facility] 1 FE) OUTPATIENT [id number] F/U STOMACH ILLNESS (E.CO) ROCKY HIGGINBOTHAM 10/26 Released with Work/Duty Limitations [facility] 1 FE) [facility]) OUTPATIENT [id number] Notes Entered by: Karen RUST 29 Nov 2012 0913 ------- ------- ------- ------- -- DANA Ching 11/29 Released w/o Limitations [facility]) [facility]) OUTPATIENT [id number] Notes Entered by: VARGAS SINGH 29 Nov 2012 1504 ------- ------- ------- ------- -- Hosea hern[facility] VARGAS COPE 11/29 Released w/o Limitations [facility] FE) [facility] S[facility]A [facility] 2 FE) OUTPATIENT [id number] RT. SHOULDE R PAIN X 3 DAYS RODERICK MCGHEE 12/06 Released w/o Limitations [facility] S01A [facility] 2 FE) [facility](Immuniz ation Clinic FE) OUTPATIENT [id number] Notes Entered by: EFREN REYES 26 Dec 2012 1400 ------- ------- ------- ------- -- screen for shots VENKATA COTAD 12/26 Released w/o Limitations [facility] unizati on Clinic FE) [facility]) OUTPATIENT [id number] PAIN IN RIBS X 3 DAYS STERLING ARANDA 02/19 Released w/o Limitations [facility]) [facility] S[facility] 2 FE) OUTPATIENT [id number] PHA, : January YU DUGAN 03/07 Released w/o Limitations [facility] 2 FE) [facility] 2 FE) OUTPATIENT [id number] f/u l knee pain YU DUGAN 04/12 Released with Work/Duty Limitations [facility] 2 FE) [facility] 2 FE) OUTPATIENT [id number] F/U LT KNEE PAIN WENDY GUTHRIE 06/06 Released w/o Limitations [facility] 2 FE) [facility] S[facility] 2 FE) TELE CONSULT [id number] Notes Entered by: Iman GUTHRIE 06 Jun 2013 1219 ------- ------- ------- ------- -- Knee films WENDY GUTHRIE 06/06 [facility] S[facility] 2 FE) [facility](Orthope dics FE) OUTPATIENT [id number] CLOSED STRESS FRACTUR E OF TIBIA LEFT BOBBY NELSON 06/13 Released w/o Limitations [facility](Ort hopedic s FE) [facility](Phy Ther FE) OUTPATIENT [id number] ARTHRAL AFIA - KNEE / PATELLA / TIBIA / FIBULA IRON STEVENS 06/25 Released w/o Limitations [facility](Phy Ther FE) [facility](Orthope dics FE) OUTPATIENT [id number] mri results BOBBY NELSON 07/10 Released w/o Limitations [facility](Ort hopedic s FE) [facility] S[facility] TM 2 FE) OUTPATIENT [id number] F/U LEG PAIN WENDY GUTHRIE 07/24 Released with Work/Duty Limitations [facility] S[facility] 2 FE) [facility] h(Occupat [facility] FE) OUTPATIENT [id number] Notes Entered by: DOUG THOMAS 26 Jul 2013 0857 ------- ------- ------- ------- -- Hearing Test WALDO MELENDEZ 07/26 Released w/o Limitations [facility] FE) [facility] h(Occupat [facility] FE) OUTPATIENT [id number] Notes Entered by: VINCENT OSUNA 02 Aug 2013 0923 ------- ------- ------- ------- -- Afluria IRON BECKER 08/02 Released w/o Limitations [facility] h(Orthope dics FE) OUTPATIENT [id number] follow up BOBBY NELSON 08/21 Released w/o Limitations [facility](Ort hopedic s FE) [facility] 2 FE) OUTPATIENT [id number] sore throat, vomitin g,heada rickie RENETTA, RENETTA N 08/27 Released with Work/Duty Limitations [facility] S[facility] 2 FE) [facility] [place] [facility] S[facility] 2 FE) OUTPATIENT [id number] SORE THROAT, HEADACH E,VOMIT ING,COU GH X 3 DAYS YE RAI 11/20 [facility]ased w/o Limitations [facility] 2 FE) [facility] [place] [facility] 2 FE) OUTPATIENT [id number] Notes Entered by: Lanette MARQUEZ 27 Nov 2013 0720 ------- ------- ------- ------- -- Flu-lik e symptom s AISSATOU GODOY 11/27 Sick at Home/Quarter s [facility]([address] 2 FE) [facility]([address] 2 FE) OUTPATIENT [id number] Notes Entered by: Lanette MARQUEZ 04 Dec 2013 1338 ------- ------- ------- ------- -- flu-lik e symptom s CINDY LEBRON F 12/04 Sick at Home/Quarter s [facility]([address] 2 FE) [facility]([address] 2 FE) OUTPATIENT [id number] URI s/s NVD x 2 weeks DOMINIK CORTEZ 12/05 Released w/o Limitations [facility]([address] 2 FE) [facility]([address] 2 FE) OUTPATIENT [id number] flu like s/s x 2 weeks YE RAI 12/06 Sick at Home/Quarter s [facility]([address] 2 FE) [facility]([address] 2 FE) OUTPATIENT [id number] Notes Entered by: JOSE LUIS SHAFER 07 Dec 2013 0918 ------- ------- ------- ------- -- vomitin g and diarrhe a YE RAI 12/07 Sick at Home/Quarter s [facility]([address] 2 FE) [facility]([address] 2 FE) OUTPATIENT [id number] F/U LEFT KNEE PAIN YE RAI 01/30 Released w/o Limitations [facility]([address] 2 FE) [facility]([address] 2 [address]) OUTPATIENT [id number] Bilater al knee pain YE RAI A 04/24 Released w/o Limitations [facility]) [facility]([address] 2 FE) TELE CONSULT [id number] Notes Entered by: YE RAI A 03 May 2014 1128 ------- ------- ------- ------- -- renu RUIZ EDIN R 05/03 [facility] S0 TM 2 FE) [facility]([address] 2 FE) OUTPATIENT [id number] PHA (requir ement met) RENZO MALONE 06/04 Released w/o Limitations [facility] FE) [facility]([address] 2 FE) OUTPATIENT [id number] Notes Entered by: REX HILL 11 Jun 2014 0754 ------- ------- ------- ------- -- Cough, nasal congest ion and headach e CINDY LEBRON 06/11 Released with Work/Duty Limitations [facility] FE) [facility]([address] 2 FE) OUTPATIENT [id number] f/u flu like symptom s YE RAI A 06/13 Released with Work/Duty Limitations [facility]([address] 2 FE) [facility](Public Health Nursing FE) OUTPATIENT [id number] HIV TESTING NADYA HUFF P 06/13 Released w/o Limitations [facility](Pub [facility] Health Nursing FE) [facility](Hearing Conservat ion FE) OUTPATIENT [id number] Notes Entered by: DOMINGO LAYNE 26 Jun 2014 0912 ------- ------- ------- ------- -- Audiogr am OLLIE LAYNE 06/26 Released w/o Limitations [facility](Hea ring [facility] FE) [facility] FE) OUTPATIENT [id number] left shoulde r injury x 2 yrs RENZO MALONE 09/09 Released with Work/Duty Limitations [facility] S0 TM 2 FE) [facility]([address] 2 FE) OUTPATIENT [id number] Notes Entered by: NIKI TODD 09 Sep 2014 1110 ------- ------- ------- ------- -- WT/BMI FRED MENARD 09/09 Released w/o Limitations [facility] S0 TM 2 FE) [facility]([address] 2 FE) TELE CONSULT [id number] Notes Entered by: Iman MALONE 24 Sep 2014 0840 ------- ------- ------- ------- -- MRI results CINDY LEBRON F 09/24 [facility] FE) [facility]([address] 2 FE) OUTPATIENT [id number] Notes Entered by: MELVIN PAREDES 07 Oct 2014 0724 ------- ------- ------- ------- -- F/U from Jacques [facility]well Resume - flu-lik e illness CASEY PHAM 10/07 Sick at Home/Quarter s [facility] FE) [facility](Public Health Nursing FE) OUTPATIENT [id number] Notes Entered by: ANNIA MATIAS 09 Oct 2014 1440 ------- ------- ------- ------- -- Flu Vaccina tion IRON BECKER 10/09 Released w/o Limitations [facility] FE) [facility](Orthope dics FE) OUTPATIENT [id number] SHOULDE R SPRAIN LEFT CALEESTHER VALADEZ 10/11 Released w/o Limitations [facility](Ort hopedic s FE) [facility](Orthope dics FE) OUTPATIENT [id number] left shoulde r NELSONBOBBY Alexander 10/18 Released w/o Limitations [facility](Ort hopedic s FE) [facility](Phy Ther FE) OUTPATIENT [id number] Shoulde r Instabi lity Labral Tear Left CORINA PATTERSON 10/22 Released w/o Limitations [facility](Phy Ther FE) [facility](Phy Ther FE) OUTPATIENT [id number] initial proc shoulde r resched LEONEL Hui 11/04 Released w/o Limitations [facility](Phy Ther FE) [facility](Phy Ther FE) OUTPATIENT [id number] L SHOULDE R LEONEL FISH 11/07 Released w/o Limitations [facility](Phy Ther FE) [facility](Phy Ther FE) OUTPATIENT [id number] L SHOULDE R LEONEL FISH 11/12 Released w/o Limitations [facility](Phy Ther FE) [facility](Phy Ther FE) OUTPATIENT [id number] L SHOULDE R LEONEL FISH 11/14 Released w/o Limitations [facility](Phy Ther FE) [facility](Phy Ther FE) OUTPATIENT [id number] L SHOULDE R LEONEL FISH 11/22 Released w/o Limitations [facility](Phy Ther FE) [facility](Phy Ther FE) OUTPATIENT [id number] L SHOULDE R LEONEL FISH 11/26 Released w/o Limitations [facility](Phy Ther FE) [facility](Phy Ther FE) OUTPATIENT [id number] f/u for shoudle CORINA Arroyo L 11/27 Released w/o Limitations [facility](Phy Ther FE) [facility](Phy Ther FE) OUTPATIENT [id number] proc l shoulde r YULIASOLEONEL RECIO 12/02 Released w/o Limitations [facility](Phy Ther FE) [facility](Phy Ther FE) OUTPATIENT [id number] shoulde r YULIASOLEONEL RECIO 12/06 Released w/o Limitations [facility](Phy Ther FE) [facility](Orthope dics FE) OUTPATIENT [id number] 6wk follow up BOBBY NELSON 12/10 Released w/o Limitations [facility](Ort hopedic s FE) [facility](Phy Ther FE) OUTPATIENT [id number] shoulde r YULIASOLEONEL RECIO 12/10 Released w/o Limitations [facility](Phy Ther FE) [facility](Phy Ther FE) OUTPATIENT [id number] shoulde r YULIASOLEONEL RECIO 12/17 Released w/o Limitations [facility](Phy Ther FE) [facility](Phy Ther FE) OUTPATIENT [id number] shoulde r YULIASOLEONEL RECIO 12/20 Released w/o Limitations [facility](Phy Ther FE) [facility](Phy Ther FE) OUTPATIENT [id number] shoulde r MARTSOLLEONEL Rodriguez 12/24 Released w/o Limitations [facility](Phy Ther FE) [facility](Phy Ther FE) OUTPATIENT [id number] F/U FOR L SHOULDE CORINA ARROYO L 12/31 Released w/o Limitations [facility](Phy Ther FE) [facility](Orthope dics FE) OUTPATIENT [id number] MRI F/UP BOBBY NELSON 01/07 Released w/o Limitations [facility] [place] FE) [facility] [place]([facility] FE) OUTPATIENT [id number] INITIAL PROC FOR L SHOULDE CORINA ARROYO 01/08 Released w/o Limitations [facility] [place]) [facility] [place]([facility]) OUTPATIENT [id number] INITIAL PROC FOR L SHOULDE R CORINA PATTERSON 01/15 Released w/o Limitations [facility] [place]) [facility] [place](Orthope dics FE) OUTPATIENT [id number] f/up BOBBY NELSON 02/04 Released w/o Limitations [facility] [place]Ort hopedic [facility] FE) [facility] [place]([facility]thope dics FE) OUTPATIENT [id number] PREOP BOBBY NELSON 02/18 Released w/o Limitations [facility] [place]) [facility] [place]([facility]thope dics FE) TELE CONSULT [id number] Notes Entered by: ALDEN NELSON 18 Mar 2015 1004 ------- ------- ------- ------- -- BOBBY Pichardo 03/18 [facility] [place]) [facility] [place]) OUTPATIENT [id number] [facility] BOBBY HERBERT 03/19 Released w/o Limitations [facility] [place]rt [facility] FE) [facility] [place](Phy [facility] FE) OUTPATIENT [id number] EUGENE MOSS 03/20 Released w/o Limitations [facility] [place]) [facility] [place]([facility]) OUTPATIENT [id number] l shoulde r pop THOMAS Mac 03/27 Released w/o Limitations [facility] [place]) [facility] [place]([facility]thope dics FE) TELE CONSULT [id number] Notes Entered by: ANA CRISTINA ARLINEJOSELUIS A 28 Mar 2015 1148 ------- ------- ------- ------- -- Pain Medicat BOBBY Ross 03/28 [facility] [place]) [facility] [place]([facility]) OUTPATIENT [id number] CHARLENE Lawson 03/31 Released w/o Limitations [facility] [place]) [facility] [place]) OUTPATIENT [id number] SERGIO Reeves 04/02 Released w/o Limitations [facility](Phy [facility] FE) [facility] [place](Orthope [facility]ics FE) OUTPATIENT [id number] BOBBY Damon 04/02 Released w/o Limitations [facility] [place] [facility](Ort hopedic s FE) [facility] [place]([facility] FE) TELE CONSULT [id number] Notes Entered by: DORIAN CARTER 09 Apr 2015 1413 ------- ------- ------- ------- -- yobany/ TWIN Hirsch 04/09 [facility] [place] [facility](Ort hopedic s FE) [facility] [place]([facility]thope [facility]ics FE) TELE CONSULT [id number] Notes Entered by: FAREED BHAKTA 11 Apr 2015 1303 ------- ------- ------- ------- -- BOBBY Sullivan 04/11 [facility] [place](Ort hopedic s FE) [facility] [place] [facility] 2 FE) OUTPATIENT [id number] TROUBLE FALLING ASLEEP AND STAYING ASLEEP X 30 DAYS RENZO MALONE 04/11 Released w/o Limitations [facility] 2 FE) [facility](Phy Ther FE) OUTPATIENT [id number] ROMEO Durbin 04/14 Released w/o Limitations [facility](Phy Ther FE) [facility](Phy Ther FE) OUTPATIENT [id number] ROMEO Durbin 04/16 Released w/o Limitations [facility](Phy Ther FE) [facility](Phy Ther FE) OUTPATIENT [id number] ROMEO Durbin 04/18 Released w/o Limitations [facility](Phy Ther FE) [facility](Phy Ther FE) OUTPATIENT [id number] follow up EUGENE Gamez 04/21 Released w/o Limitations [facility](Phy Ther FE) [facility](Phy Ther FE) OUTPATIENT [id number] ROMEO MCCORMACK 04/23 Released w/o Limitations [facility](Phy Ther FE) [facility](Orthope dics FE) TELE CONSULT [id number] Notes Entered by: DORIAN CARTER 23 Apr 2015 1451 ------- ------- ------- ------- -- yobany/ JOSELUIS Ruelas 04/23 [facility](Ort hopedic s FE) [facility](AMH S01A TMC 2 FE) OUTPATIENT [id number] RENZO Montague 04/24 Released w/o Limitations [facility](AMH S01A TMC 2 FE) [facility](Phy Ther FE) OUTPATIENT [id number] THOMAS SHEN 04/25 Released w/o Limitations [facility](Phy Ther FE) [facility](Phy Ther FE) OUTPATIENT [id number] L SHOULDE Iman FISH LEONEL Mendez 04/29 Released w/o Limitations [facility](Phy Ther FE) [facility](Phy Ther FE) OUTPATIENT [id number] L SHOULDMisha FISH LEONEL Mendez 05/02 Released w/o Limitations [facility](Phy Ther FE) [facility](Phy Ther FE) OUTPATIENT [id number] L SHOULDE Iman FISH LEONEL Mendez 05/07 Released w/o Limitations [facility](Phy Ther FE) [facility](Phy Ther FE) OUTPATIENT [id number] L SHOULDE FAUSTO TERRAZASALLYSON Mendez 05/09 Released w/o Limitations [facility](Phy Ther FE) [facility](Orthope dics FE) OUTPATIENT [id number] follow up BOBBY NELSON 05/09 Released w/o Limitations [facility](Ort hopedic s FE) [facility](Phy Ther FE) OUTPATIENT [id number] F/U FOR FOR EUGENE NERI 05/12 Released w/o Limitations [facility](Phy Ther FE) [facility](Phy Ther FE) OUTPATIENT [id number] THOMAS Shen 05/14 Released w/o Limitations [facility](Phy Ther FE) [facility](Phy Ther FE) OUTPATIENT [id number] THOMAS Shen A 05/16 Released w/o Limitations [facility](Phy Ther FE) [facility](Phy Ther FE) OUTPATIENT [id number] THOMAS Shen A 05/21 Released w/o Limitations [facility](Phy Ther FE) [facility](Phy Ther FE) OUTPATIENT [id number] MYA Rondon 05/23 Released w/o Limitations [facility](Phy Ther FE) [facility] S[facility] TMC 2 FE) OUTPATIENT [id number] F/U L RENZO MONTAGUE 05/26 Released w/o Limitations [facility](AMH S01A TMC 2 FE) [facility](Phy Ther FE) OUTPATIENT [id number] l MYA Luna 05/30 Released w/o Limitations [facility](Phy Ther FE) [facility](AMH S01A TMC 2 FE) OUTPATIENT [id number] RENZO Mcneill 06/04 Released w/o Limitations [facility](AMH S01A TMC 2 FE) [facility](AMH S01A TMC 2 FE) OUTPATIENT [id number] Referre d: anxiety FRED MENARD 06/05 Released w/o Limitations [facility](AMH S01A TMC 2 FE) [facility]AMH S01A TMC 2 FE) TELE CONSULT [id number] Notes Entered by: NIKI TODD 05 Jun 2015 1400 ------- ------- ------- ------- -- Ref for anxiety RENZO MALONE 06/05 [facility](AMH S01A TMC 2 FE) [facility](Phy Ther FE) OUTPATIENT [id number] r/s follow up EUGENE Arellano 06/06 Released w/o Limitations [facility](Phy Ther FE) [facility](Orthope dics FE) TELE CONSULT [id number] Notes Entered by: Misha MADISON 10 Jun 2015 0730 ------- ------- ------- ------- -- TWIN Hirsch 06/10 [facility](Ort hopedic s FE) [facility](AMH S01A TMC 2 FE) OUTPATIENT [id number] RENZO Mcneill 06/10 Released w/o Limitations [facility] S01A TMC 2 FE) [facility](Phy Ther FE) OUTPATIENT [id number] LEONEL Argueta 06/20 Released w/o Limitations [facility](Phy Ther FE) [facility](Orthope dics FE) TELE CONSULT [id number] Notes Entered by: DORIAN CARTER 30 Jun 2015 1002 ------- ------- ------- ------- -- yobany/ TWIN Hirsch 06/30 [facility](Ort hopedic s FE) [facility] S01A TMC 2 FE) OUTPATIENT [id number] RENZO Mcneill 07/03 Released w/o Limitations [facility] S01A TMC 2 FE) [facility](Orthope dics FE) OUTPATIENT [id number] f/up pt BOBBY Cleveland 07/17 Released w/o Limitations [facility](Ort hopedic s FE) [facility](Phy Ther FE) OUTPATIENT [id number] ALEJANDRINA Thakur 07/21 Released w/o Limitations [facility](Phy Ther FE) [facility](Orthope dics FE) TELE CONSULT [id number] Notes Entered by: Misha MADISON 23 Jul 2015 0725 ------- ------- ------- ------- -- TWIN Hirsch 07/23 [facility](Ort hopedic s FE) [facility](Phy Ther FE) OUTPATIENT [id number] ALEJANDRINA BROWN 07/24 Released w/o Limitations [facility](Phy Ther FE) [facility](AMH S01A TMC 2 FE) TELE CONSULT [id number] Notes Entered by: JOSE LUIS SHAFER 24 Jul 2015 1602 ------- ------- ------- ------- -- ETS RENZO Fernandes 07/24 [facility](AMH S01A TMC 2 FE) [facility](Phy Ther FE) OUTPATIENT [id number] EUGENE Neri 07/25 Released w/o Limitations [facility](Phy Ther FE) [facility] [place] [facility](Phy Ther FE) OUTPATIENT [id number] initial proc LEONEL Reaves 07/29 Released w/o Limitations [facility](Phy Ther FE) [facility](Sports Ortho NMCP) TELE CONSULT [id number] Notes Entered by: CHHAYA GALO 29 Jul 2015 1516 ------- ------- ------- ------- -- YARELY Alvarado 07/29 Released to Self Care [facility](Spo rts Ortho NMCP) [facility]) OUTPATIENT [id number] LEONEL Reaves 07/31 Released w/o Limitations [facility](Phy Ther FE) [facility] h(Sports Ortho NMCP) TELE CONSULT [id number] Notes Entered by: CHHAYA GALO 05 Aug 2015 1054 ------- ------- ------- ------- -- YARELY Alvarado 08/05 Released to Self Care [facility](Spo rts Ortho NMCP) [facility] h(Phy Ther FE) OUTPATIENT [id number] l LEONEL Wellington 08/07 Released w/o Limitations [facility](Phy Ther FE) [facility](Optomet ry [place]) OUTPATIENT [id number] ets CHAU Issa 08/08 Released w/o Limitations [facility](Opt ometry [place]) [facility](Hearing Conservat ion FE) OUTPATIENT [id number] Notes Entered by: VINCENT OSUNA 08 Aug 2015 1026 ------- ------- ------- ------- -- Hearing test PE VINCENT OSUNA 08/08 Released w/o Limitations [facility](Hea ring Conserv ation FE) [facility](Orthope dics FE) TELE CONSULT [id number] Notes Entered by: LACEY 08 Aug 2015 1048 ------- ------- ------- ------- -- BOBBY Kaba 08/08 [facility](Ort hopedic s FE) [facility](Phy Ther FE) OUTPATIENT [id number] l LEONEL Wellington 08/12 Released w/o Limitations [facility](Phy Ther FE) [facility](AMH S01A TMC 2 FE) OUTPATIENT [id number] ETS RENZO Fernandes 08/18 Released w/o Limitations [facility](AMH S01A TMC 2 FE) [facility](Phy Ther FE) OUTPATIENT [id number] f/u for l EUGENE Arellano 08/25 Released w/o Limitations [facility](Phy Ther FE) [facility](AMH S01A TMC 2 FE) OUTPATIENT [id number] F/u for second opinon for lt RENZO Clarke 08/25 Released w/o Limitations [facility](AMH S01A TMC 2 FE) [facility](Orthope dics FE) OUTPATIENT [id number] 6wk follow up BOBBY NELSON 09/02 Released w/o Limitations [facility](Ort hopedi s FE) [facility](AMH S01A TMC 2 FE) TELE CONSULT [id number] Notes Entered by: ONOFRE SPENCER 11 Sep 2015 1514 ------- ------- ------- ------- -- NETWORK RESULTS ; ORTHOPE DICS 5 LOOK IN ARTIFAC TS and IMAGES RENZO MALONE 09/11 [facility](AMH S01A TMC 2 FE) [facility](AMH S01A TMC 2 FE) OUTPATIENT [id number] PHA (will relook at online) RENZO MALONE 10/16 Released w/o Limitations [facility](AMH S01A TMC 2 FE) [facility](Occupat [facility] FE) OUTPATIENT [id number] Notes Entered by: SANGEETA BUSTILLOS 18 Nov 2015 1458 ------- ------- ------- ------- -- Flu Vaccina IRON Mattson 11/18 Released w/o Limitations [facility](Occ upation [facility] FE) [facility] Outpatient Encounter [id number] 10/02 [facility] Outpatient Encounter [id number] 10/02 [facility] [id number] 10/08 [facility] Encounter [id number] 10/09 [facility] Encounter [id number] 11/14 [facility] Encounter [id number] 12/25 [facility]counter [id number] 12/25 [facility] Encounter [id number] 12/26 [facility] CRISIS INTERVEN SVC, 15 MIN [id number] Diagnos is: ICD-10- CM F11.20 Opioid depende nce, uncompl icated April LEVIN 01/02 [facility] OFF/OP EST MAY X REQ PHY/QHP [id number] Diagnos is: ICD-10- CM F11.23 Opioid depende nce with withCHACORTA Chavez 01/02 [facility] PSYCH DIAGNOSTIC EVALUATION [id number] Diagnos is: ICD-10- CM F11.20 Opioid depende nce, uncompl icated MAZIN STONE 01/02 [facility] OFFICE O/P EST HI 40 MIN [id number] Diagnos is: ICD-10- CM F11.20 Opioid depende nce, uncompl icated SLIM NGUYEN J 01/02 [facility] ELECTROCAR DIOGRAM REPORT [id number] Diagnos is: ICD-10- CM Z13.6 Encount er for screeni ng for cardiov ascular disorde ROSELYN Villalba U 01/02 [place] [facility] Outpatient Encounter [id number] 01/02 [facility] Inpatient Encounter [id number] Admit Reason: SUDS, PTSD RA Mee ARMENTA 01/02 Regular discharge [place] inpatient treatment[place] [facility] [place] [place] [facility] Inpatient Encounter [id number] 01/02 [facility] CASE MANAGEMENT [id number] Diagnos is: ICD-10- CM F11.20 Opioid depende nce, uncompl icated RADHA-PIE RCE,KHANG 01/02 [place] [facility] [facility] [place] [place] [facility] SBSQ HOSP IP/OBS HIGH 50 [id number] Diagnos is: ICD-10- CM F14.10 Cocaine abuse, uncompl icated RA Mee ARMENTA 01/02 [place] [facility] [place] [facility] CASE MANAGEMENT [id number] Diagnos is: ICD-10- CM F11.20 Opioid depende nce, uncompl icated RADHA-PIE RCE,KHANG 01/02 [facility] Inpatient Encounter [id number] 01/02 [facility] [place] Outpatient [facility]counter [id number] 01/07 [facility] [place] Outpatient Encounter [id number] 01/17 [facility] En[facility] [id number] 01/18 [facility] Encounter [id number] 01/22 [facility] Encounter [id number] 01/23 [facility] [place] Outpatient [facility]counter [id number] 01/23 [facility] Procedures Combined list of: 1) Procedures from Department of Veterans Affairs facilities going back up to thelast 18 months, not all VA non-surgical procedures are included; 2) All procedures from the Department of Defense facilities. Procedure Procedure Type Code Date Perfomer Vineet [facility] e Physical Therapy: ___ Se ion Segments, 15 Minutes Each Physical Therapy: ___ Session Segments, 15 Minutes Each 42759 2014 DAYTONVINICIUSLEONEL Rodriguez [facility] Physical Therapy Neuromuscular Re-education Physical Therapy Neuromuscular Re-education 06101 2014 LEONEL FISH [facility] Physical Therapy: ___ Se ion Segments, 15 Minutes Each Physical Therapy: ___ Session Segments, 15 Minutes Each 01632 2014 JANETTELEONEL Rodriguez [facility] Modalities Cryotherapy Cold Packs Modalities Cryotherapy Cold Packs 01090 2014 LEONEL FISH [facility] Physical Therapy Neuromuscular Re-education Physical Therapy Neuromuscular Re-education 34188 2014 LEONEL FISH [facility] Physical Therapy: ___ Se ion Segments, 15 Minutes Each Physical Therapy: ___ Session Segments, 15 Minutes Each 66182 2014 LEONEL FISH [facility] Modalities Cryotherapy Cold Packs Modalities Cryotherapy Cold Packs 64922 2014 JANETTEHEMALLEONEL [facility] Physical Therapy Neuromuscular Re-education Physical Therapy Neuromuscular Re-education 14639 2014 JANETTELEONEL Rodriguez [facility] Physical Therapy: ___ Se ion Segments, 15 Minutes Each Physical Therapy: ___ Session Segments, 15 Minutes Each 83395 2014 [facility] Physical Therapy Neuromuscular Re-education Physical Therapy Neuromuscular Re-education 28672 2014 DAYTONVINICIUSLEONEL Rodriguez [facility] Physical Therapy: ___ Se ion Segments, 15 Minutes Each Physical Therapy: ___ Session Segments, 15 Minutes Each 94219 2014 [facility] Physical Therapy: ___ Se ion Segments, 15 Minutes Each Physical Therapy: ___ Session Segments, 15 Minutes Each 97889 2014 CORINA PATTERSON [facility] Physical Medicine Physical Therapy Evaluation Physical Medicine Physical Therapy Evaluation 42828 2014 CORINA PATTERSON [facility] Immunization Admin By Intranasal / Oral Route One Vaccine Immunization Admin By Intranasal / Oral Route One Vaccine 94516 2014 ANNIA MATIAS [facility] Health And Behav A e mt Each 15 Min Initial A e ment Health And Behav Assessmt Each 15 Min Initial Assessment 10665 2013 FRED MENARD [facility] Threshold Audiogram (Pure Tone) Threshold Audiogram (Pure Tone) 92432 2013 OLLIE LAYNE H-1 hearing test within normal limits, no significant threshold shift. [facility] Venipuncture Venipuncture 23616 2013 NADYA HUFF Specimen obtained from left ante-cubital area. [facility] Parenteral Fluids IV Infusion Parenteral Fluids IV Infusion 92862 2013 YE RAI give 1 liter of normal saline [facility] Influenza Split Virus Vaccine Age 3+ Years Intramuscular 2012 VINCENT OSUNA [facility] Immunization Administration One Vaccine Immunization Administration One Vaccine 59729 2012 VINCENT OSUNA [facility] Threshold Audiogram (Pure Tone) Threshold Audiogram (Pure Tone) 25028 2012 WALDO MELENDEZ Normal H-1 Hearing Test With No Significant Threshold Shift. [facility] Physical Medicine Physical Therapy Evaluation Physical Medicine Physical Therapy Evaluation 89809 2012 IRON STEVENS [facility] Physical Therapy: ___ Se ion Segments, 15 Minutes Each Physical Therapy: ___ Session Segments, 15 Minutes Each 52202 2012 IRON STEVENS [facility] Crutches, forearm, includes crutches of various materials, adjustable or fixed, pair, complete with tips and handgrips 2012 WENDY GUTHRIE [facility] Hepatitis A Vaccine Adult Dosage (Intramuscular Use) Hepatitis A Vaccine Adult Dosage (Intramuscular Use) 33600 2012 ARABELLA BARAHONA Hep A (Adult); Series #: 2; 1.0 mL; IM; Right Arm; ViaSatg: apomio; Lot: [id number]; VIS given (Deepti: 07/27/11). [facility] Immunization Administration One Vaccine Immunization Administration One Vaccine 53285 2012 ARABELLA BARAHONA [facility] Medical Nutrition Therapy Group (2 or More Individual(s)) Medical Nutrition Therapy Group (2 or More Individual(s)) 03691 2012 VARGAS BUSH 0900 . DoD A e ment & Intervention Blood Pre ure Measured Assessment & Intervention Blood Pressure Measured 2012 DANA RUST [facility] Immunization Admin Intranasal / Oral Each Additional Vaccine Immunization Admin Intranasal / Oral Each Additional Vaccine 05885 2011 NENEA DELUNA [facility] Vaccines Adenovirus Type 4 Live, For Oral Use Vaccines Adenovirus Type 4 Live, For Oral Use 50458 2011 NEENA DELUNA A single vaccine dose was adminstered orally. [facility] Vaccines Adenovirus Type 7 Live, For Oral Use Vaccines Adenovirus Type 7 Live, For Oral Use 02657 2011 NEENA DELUNA A single vaccine dose was adminstered orally. DoD Immunization Admin By Intranasal / Oral Route One Vaccine Immunization Admin By Intranasal / Oral Route One Vaccine 60186 2011 NEENA DELUNA [facility] Influenza Virus Vaccine Live Intranasal 2011 NEENA DELUNA flumist: Each sprayer contains a single dose of Flumist; approximately one-half of the contents was administered into each nostril. Patient was observed for 15 min with no adverse reactions [facility] Skin Test Anergy Tuberculin Intradermal Skin Test Anergy Tuberculin Intradermal 41112 2011 NEENA DELUNA Visit for intradermal tuberculin testing of 0.1mL of Mantoux (Tuberculin Purified Protein Derivative). Was given in the Left forearm, volar surface. Patient was observed for 15 min with no adverse reactions.[ [facility] Meningococcal Polysacch Diphtheria Toxoid Conjugate Vaccine 2011 NEENA DELUNA Visit for an IM injection of 0.5mL of Meningococcal Vaccine (Menactra). Was given in the Left Deltoid. Patient was observed for 15 min with no adverse reactions. [facility] Vaccines Viral Polio, Inactivated (Salk) Vaccines Viral Polio, Inactivated (Salk) 06702 2011 NEENA DELUNA Visit for an IM injection of 0.5mL of IPOL (Poliovirus Vaccine Inactivated). Was given in the Right Deltoid. Patient was observed for 15 min with no adverse reactions. [facility] Hepatitis A Vaccine Adult Dosage (Intramuscular Use) Hepatitis A Vaccine Adult Dosage (Intramuscular Use) 94800 2011 NEENA DELUNA Visit for an IM injection of 1mL of Hepatitis A (Havrix). Was given in the Right Deltoid. Patient was observed for 15 min with no adverse reactions. [facility] Immunization Administration One Vaccine Immunization Administration One Vaccine 32944 2011 NEENA DELUNA [facility] Immunization Administration Each Additional Vaccine 2011 NEENA DELUNA [facility] Tdap Vaccine Tdap Vaccine 85604 2011 NEENA DELUNA Visit for an IM injection of 0.5mL of Boostrix (Tetanus and Diphtheria Toxoids and Acellular Pertussis). Was given in the Right Deltoid. Patient was observed for 15 min with no adverse reactions. [facility] Audiometry Group Testing Audiometry Group Testing 39217 2011 NURY BERMUDEZ [facility] Visual Function Screening Visual Function Screening 62306 2011 LILIA RICHARDS. [facility] Immunization Admin By Intranasal / Oral Route One Vaccine Immunization Admin By Intranasal / Oral Route One Vaccine 62943 2015 JOSELUIS GARNER [facility] Physical Medicine Physical Therapy Re-Evaluation Physical Medicine Physical Therapy Re-Evaluation 65232 2014 EUGENE MOSS [facility] Physical Therapy Mobilization Joint Physical Therapy Mobilization Joint 85710 2014 LEONEL FISH [facility] Physical Therapy Neuromuscular Re-education Physical Therapy Neuromuscular Re-education 70413 2014 LEONEL FISH Andrea [facility] Physical Therapy: ___ Se ion Segments, 15 Minutes Each Physical Therapy: ___ Session Segments, 15 Minutes Each 22374 2014 LEONEL FISH Andrea [facility] Threshold Audiogram (Pure Tone) Threshold Audiogram (Pure Tone) 64332 2014 VINCENT OSUNA [facility] Screening Test Of Visual Acuity, Quantitative, Bilateral Screening Test Of Visual Acuity, Quantitative, Bilateral 12519 2014 CHAU AMBRIZ [facility] Physical Therapy Neuromuscular Re-education Physical Therapy Neuromuscular Re-education 64670 2014 LEONEL FISH [facility] Physical Therapy: ___ Se ion Segments, 15 Minutes Each Physical Therapy: ___ Session Segments, 15 Minutes Each 39569 2014 LEONEL FISH [facility] Physical Therapy Mobilization Joint Physical Therapy Mobilization Joint 00012 2014 [facility] Physical Therapy Neuromuscular Re-education Physical Therapy Neuromuscular Re-education 58400 2014 LEONEL FISH Andrea [facility] Physical Therapy: ___ Se ion Segments, 15 Minutes Each Physical Therapy: ___ Session Segments, 15 Minutes Each 58466 2014 LEONEL FISH [facility] Physical Therapy Mobilization Joint Physical Therapy Mobilization Joint 31390 2014 FAUSTO FISHALLYSON Andrea [facility] Physical Therapy Neuromuscular Re-education Physical Therapy Neuromuscular Re-education 62713 2014 LEONEL FISH [facility] Physical Therapy: ___ Se ion Segments, 15 Minutes Each Physical Therapy: ___ Session Segments, 15 Minutes Each [id number] 2014 LEONEL FISH [facility] Physical Medicine Physical Therapy Re-Evaluation Physical Medicine Physical Therapy Re-Evaluation [id number] 2014 EUGENE MOSS [facility] Non-Physician Phone Call To Pt/Provider Intermed (11-20 min) Non-Physician Phone Call To Pt/Provider Intermed (11-20 min) [id number] 2014 TWIN CROSS [facility] Physical Therapy Mobilization Joint Physical Therapy Mobilization Joint [id number] 2014 ALEJANDRINA HERNANDEZ [facility] Physical Therapy: ___ Se ion Segments, 15 Minutes Each Physical Therapy: ___ Session Segments, 15 Minutes Each [id number] 2014 ALEJANDRINA HERNANDEZ [facility] Physical Therapy Mobilization Joint Physical Therapy Mobilization Joint 91530 2014 ALEJANDRINA HERNANDEZ [facility] Physical Therapy: ___ Se ion Segments, 15 Minutes Each Physical Therapy: ___ Session Segments, 15 Minutes Each [id number] 2014 ALEJANDRINA HERNANDEZ [facility] Non-Physician Phone Call To Pt/Provider Intermed (11-20 min) Non-Physician Phone Call To Pt/Provider Intermed (11-20 min) [id number] 2014 TWIN CROSS [facility] Physical Therapy Mobilization Joint Physical Therapy Mobilization Joint 46601 2014 LEONEL FISH [facility] Physical Therapy: ___ Se ion Segments, 15 Minutes Each Physical Therapy: ___ Session Segments, 15 Minutes Each [id number] 2014 LEONEL FISH [facility] Non-Physician Phone Call To Pt/Provider Intermed (11-20 min) Non-Physician Phone Call To Pt/Provider Intermed (11-20 min) [id number] 2014 TWIN CROSS [facility] Mobilization Soft Ti ue Mobilization Soft Tissue 28501 2014 EUGENE MOSS [facility] Physical Medicine Physical Therapy Re-Evaluation Physical Medicine Physical Therapy Re-Evaluation [id number] 2014 EUGENE MOSS [facility] Psychiatric Therapy Individual Approximately 20-30 Minutes 2014 FRED MENARD [facility] Physical Therapy Mobilization Joint Physical Therapy Mobilization Joint 48186 2014 MYA SANCHEZ [facility] Physical Therapy: ___ Se ion Segments, 15 Minutes Each Physical Therapy: ___ Session Segments, 15 Minutes Each [id number] 2014 MYA SANCHEZ [facility] Physical Therapy Mobilization Joint Physical Therapy Mobilization Joint 71572 2014 MYA SANCHEZ [facility] Physical Therapy: ___ Se ion Segments, 15 Minutes Each Physical Therapy: ___ Session Segments, 15 Minutes Each [id number] 2014 MYA SANCHEZ [facility] Modalities Cryotherapy Cold Packs Modalities Cryotherapy Cold Packs [id number] 2014 KYLER ROD [facility] Physical Therapy Mobilization Joint Physical Therapy Mobilization Joint 47025 2014 KYLER ROD [facility] Physical Therapy: ___ Se ion Segments, 15 Minutes Each Physical Therapy: ___ Session Segments, 15 Minutes Each [id number] 2014 KYLER ROD [facility] Physical Therapy Mobilization Joint Physical Therapy Mobilization Joint [id number] 2014 KYLER ROD [facility] Physical Therapy: ___ Se ion Segments, 15 Minutes Each Physical Therapy: ___ Session Segments, 15 Minutes Each [id number] 2014 KYLER ROD [facility] Modalities Cryotherapy Cold Packs Modalities Cryotherapy Cold Packs 39796 2014 KYLER ROD [facility] Physical Therapy Mobilization Joint Physical Therapy Mobilization Joint 05218 2014 KYLER ROD [facility] Physical Therapy: ___ Se ion Segments, 15 Minutes Each Physical Therapy: ___ Session Segments, 15 Minutes Each [id number] 2014 KYLER ROD [facility] Mobilization Soft Ti ue Mobilization Soft Tissue 71408 2014 EUGENE MOSS [facility] Physical Medicine Physical Therapy Re-Evaluation Physical Medicine Physical Therapy Re-Evaluation 09233 2014 EUGENE MOSS [facility] Physical Therapy Mobilization Joint Physical Therapy Mobilization Joint 71822 2014 LEONEL FISH [facility] Physical Therapy: ___ Se ion Segments, 15 Minutes Each Physical Therapy: ___ Session Segments, 15 Minutes Each 66577 2014 LEONEL FISH [facility] Physical Therapy Mobilization Joint Physical Therapy Mobilization Joint 06636 2014 LEONEL FISH [facility] Physical Therapy: ___ Se ion Segments, 15 Minutes Each Physical Therapy: ___ Session Segments, 15 Minutes Each [id number] 2014 LEONEL FISH [facility] Physical Therapy Mobilization Joint Physical Therapy Mobilization Joint 46145 2014 LEONEL FISH [facility] Physical Therapy: ___ Se ion Segments, 15 Minutes Each Physical Therapy: ___ Session Segments, 15 Minutes Each [id number] 2014 LEONEL FISH [facility] Physical Therapy Mobilization Joint Physical Therapy Mobilization Joint 67534 2014 LEONEL FISH [facility] Physical Therapy: ___ Se ion Segments, 15 Minutes Each Physical Therapy: ___ Session Segments, 15 Minutes Each [id number] 2014 JANETTELEONEL RECIO Andrea [facility] Physical Therapy Mobilization Joint Physical Therapy Mobilization Joint 66840 2014 KYLER ROD [facility] Physical Therapy: ___ Se ion Segments, 15 Minutes Each Physical Therapy: ___ Session Segments, 15 Minutes Each [id number] 2014 KYLER ROD [facility] Exercise equipment 2014 ROMEO CASTILLO [facility] Physical Therapy Mobilization Joint Physical Therapy Mobilization Joint 98181 2014 ROMEO CASTILLO [facility] Physical Therapy: ___ Se ion Segments, 15 Minutes Each Physical Therapy: ___ Session Segments, 15 Minutes Each [id number] 2014 ROMEO CASTILLO [facility] Physical Therapy: ___ Se ion Segments, 15 Minutes Each Physical Therapy: ___ Session Segments, 15 Minutes Each [id number] 2014 EUGENE MOSS [facility] Mobilization Soft Ti ue Mobilization Soft Tissue 41655 2014 EUGENE MOSS [facility] Physical Medicine Physical Therapy Re-Evaluation Physical Medicine Physical Therapy Re-Evaluation 86406 2014 EUGENE MOSS [facility] Modalities Cryotherapy Cold Packs Modalities Cryotherapy Cold Packs 30635 2014 ROMEO CASTILLO [facility] Physical Therapy: ___ Se ion Segments, 15 Minutes Each Physical Therapy: ___ Session Segments, 15 Minutes Each 74434 2014 ROMEO CASTILLO [facility] Modalities Cryotherapy Cold Packs Modalities Cryotherapy Cold Packs 18644 2014 ROMEO CASTILLO [facility] Physical Therapy: ___ Se ion Segments, 15 Minutes Each Physical Therapy: ___ Session Segments, 15 Minutes Each 85819 2014 ROMEO CASTILLO [facility] Modalities Cryotherapy Cold Packs Modalities Cryotherapy Cold Packs 47027 2014 ROMEO CASTILLO [facility] Physical Therapy Mobilization Joint Physical Therapy Mobilization Joint 07083 2014 ROMEO CASTILLO [facility] Physical Therapy: ___ Se ion Segments, 15 Minutes Each Physical Therapy: ___ Session Segments, 15 Minutes Each 32754 2014 ROMEO CASTILLO [facility] Modalities Cryotherapy Cold Packs Modalities Cryotherapy Cold Packs 30756 2014 TATIANA SERGIO ANDREWNEY [facility] Modalities Cryotherapy Cold Packs Modalities Cryotherapy Cold Packs 86589 2014 CHARLENE PRECIADO [facility] Physical Therapy Mobilization Joint Physical Therapy Mobilization Joint 23197 2014 PRECIADOCHARLENE [facility] Physical Therapy: ___ Se ion Segments, 15 Minutes Each Physical Therapy: ___ Session Segments, 15 Minutes Each 11172 2014 CHARLENE PRECIADO [facility] Physical Therapy Mobilization Joint Physical Therapy Mobilization Joint 26833 2014 KYLER ROD [facility] Physical Therapy: ___ Se ion Segments, 15 Minutes Each Physical Therapy: ___ Session Segments, 15 Minutes Each [id number] 2014 KYLER ROD [facility] Mobilization Soft Ti ue Mobilization Soft Tissue 90273 2014 EUGENE MOSS [facility] Physical Therapy: ___ Se ion Segments, 15 Minutes Each Physical Therapy: ___ Session Segments, 15 Minutes Each 97323 2014 EUGENE MOSS [facility] Physical Medicine Physical Therapy Evaluation Physical Medicine Physical Therapy Evaluation 09987 2014 EUGENE MOSS [facility] Modalities Cryotherapy Cold Packs Modalities Cryotherapy Cold Packs 29647 2014 CORINA PATTERSON [facility] Physical Therapy Neuromuscular Re-education Physical Therapy Neuromuscular Re-education 53019 2014 CORINA PATTERSON [facility] Physical Therapy: ___ Se ion Segments, 15 Minutes Each Physical Therapy: ___ Session Segments, 15 Minutes Each [id number] 2014 CORINA PATTERSON [facility] Phys Therapy Education Self Care Training - Per 15 Minutes Phys Therapy Education Self Care Training - Per 15 Minutes [id number] 2014 CORINA PATTERSON [facility] Physical Medicine Physical Therapy Re-Evaluation Physical Medicine Physical Therapy Re-Evaluation 76410 2014 CORINA PATTERSON [facility] Physical Therapy Neuromuscular Re-education Physical Therapy Neuromuscular Re-education 17823 2014 LEONEL FISH [facility] Physical Therapy: ___ Se ion Segments, 15 Minutes Each Physical Therapy: ___ Session Segments, 15 Minutes Each [id number] 2014 LEONEL FISH [facility] Physical Therapy Neuromuscular Re-education Physical Therapy Neuromuscular Re-education 84260 2014 [facility] LEONEL Mendez [facility] Physical Therapy: ___ Se ion Segments, 15 Minutes Each Physical Therapy: ___ Session Segments, 15 Minutes Each [id number] 2014 [facility] LEONEL Mendez [facility] Modalities Cryotherapy Cold Packs Modalities Cryotherapy Cold Packs 18340 2014 [facility] RodriguezALLYSON Mendez [facility] Physical Therapy Neuromuscular Re-education Physical Therapy Neuromuscular Re-education 87570 [address] [facility] Physical Therapy: ___ Se ion Segments, 15 Minutes Each Physical Therapy: ___ Session Segments, 15 Minutes Each [id number] 2014 [facility] LEONEL Mendez [facility] Modalities Cryotherapy Cold Packs Modalities Cryotherapy Cold Packs 73676 [address] [facility] RodriguezALLYSON Mendez [facility] Physical Therapy Neuromuscular Re-education Physical Therapy Neuromuscular Re-education 80595 2014 [facility] RodriguezALLYSON Mendez [facility] Physical Therapy: ___ Se ion Segments, 15 Minutes Each Physical Therapy: ___ Session Segments, 15 Minutes Each 13851 2014 [facility] LE[facility]EL [facility]endez [facility] Modalities Cryotherapy Cold Packs Modalities Cryotherapy Cold Packs 32823 2014 [facility] LE[facility] Physical Therapy Neuromuscular Re-education Physical Therapy Neuromuscular Re-education 46061 2014 [facility] LEONEL Mendez [facility] Physical Therapy: ___ Se ion Segments, 15 Minutes Each Physical Therapy: ___ Session Segments, 15 Minutes Each [id number] 2014 [facility] RodriguezALLYSON Mendez [facility] Physical Therapy Mobilization Joint Physical Therapy Mobilization Joint 90388 2014 [facility] RodriguezALLYSON [facility] Physical Therapy: ___ Se ion Segments, 15 Minutes Each Physical Therapy: ___ Session Segments, 15 Minutes Each [id number] 2014 [facility] RodriguezALLYSON [facility] Physical Therapy: ___ Se ion Segments, 15 Minutes Each Physical Therapy: ___ Session Segments, 15 Minutes Each 85633 2014 CORINA PATTERSON [facility] Physical Medicine Physical Therapy Evaluation Physical Medicine Physical Therapy Evaluation 35998 2014 CORINA PATTERSON [facility] Physical Therapy Neuromuscular Re-education Physical Therapy Neuromuscular Re-education 18515 2014 LEONEL FISH [facility] Physical Therapy: ___ Se ion Segments, 15 Minutes Each Physical Therapy: ___ Session Segments, 15 Minutes Each [id number] 2014 LEONEL FISH [facility] Physical Therapy Neuromuscular Re-education Physical Therapy Neuromuscular Re-education 21981 2014 LEONEL FISH [facility] AUDIOMETRIC TESTING OF GROUPS 2011 [facility] ADENOVIRUS VACCINE, TYPE 7, LIVE, FOR ORAL USE 2011 [facility] VIS FUNCT SCREEN,AUTOMAT/SEMI-AU TOMAT BILAT QUANT DETERM VISUAL ACUITY,OCULAR ALIGN,COLOR VISION,PSEUDOISOCHROMA T PLATES,& FIELD VIS (MAY INC ALL/SOME SCRN DETERM FOR CONTRAST SENSITIV,VIS UND GLARE) 2011 [facility] IMMUNIZATION ADMINISTRATION BY INTRANASAL OR ORAL ROUTE; 1 VACCINE (SINGLE OR COMBINATION VACCINE/TOXOID) 2015 [facility] PHYSICAL THERAPY RE-EVALUATION 2014 [facility] MANUAL THERAPY TECHNIQUES (EG, MOBILIZATION/ MANIPULATION, MANUAL LYMPHATIC DRAINAGE, MANUAL TRACTION), 1 OR MORE REGIONS, EACH 15 MINUTES 2014 [facility] PURE TONE AUDIOMETRY (THRESHOLD); AIR ONLY 2014 [facility] SCREENING TEST OF VISUAL ACUITY, QUANTITATIVE, BILATERAL 2014 [facility] THERAPEUTIC PROCEDURE,1 OR MORE AREAS,EACH 15 MINUTES;NEUROMUSCULAR REEDUCATION OF MOVEMENT,BALANCE,COORD INATION,KINESTHETIC SENSE,POSTURE,AND/OR PROPRIOCEPTION FOR SITTING AND/OR STANDING ACTIVITIES 2014 [facility] MANUAL THERAPY TECHNIQUES (EG, MOBILIZATION/ MANIPULATION, MANUAL LYMPHATIC DRAINAGE, MANUAL TRACTION), 1 OR MORE REGIONS, EACH 15 MINUTES 2014 [facility] MANUAL THERAPY TECHNIQUES (EG, MOBILIZATION/ MANIPULATION, MANUAL LYMPHATIC DRAINAGE, MANUAL TRACTION), 1 OR MORE REGIONS, EACH 15 MINUTES 2014 [facility] PHYSICAL THERAPY RE-EVALUATION 2014 [facility] MANUAL THERAPY TECHNIQUES (EG, MOBILIZATION/ MANIPULATION, MANUAL LYMPHATIC DRAINAGE, MANUAL TRACTION), 1 OR MORE REGIONS, EACH 15 MINUTES 2014 [facility] TELE ASSESS & MGT SRV PROV QUAL NONPHYS HLTH CARE PRO TO EST PAT,PARENT,GUARD NOT ORIG REL ASSESS & MGT SRV PROV W/IN PREV 7 DAYS NOR LEAD ASSESS & MGT SRV/PX W/IN NXT 24H/SOON APT; 11-20 MIN MED DIS 10/21/ 2015 [facility] MANUAL THERAPY TECHNIQUES (EG, MOBILIZATION/ MANIPULATION, MANUAL LYMPHATIC DRAINAGE, MANUAL TRACTION), 1 OR MORE REGIONS, EACH 15 MINUTES 2014 [facility] TELE ASSESS & MGT SRV PROV QUAL NONPHYS HLTH CARE PRO TO EST PAT,PARENT,GUARD NOT ORIG REL ASSESS & MGT SRV PROV W/IN PREV 7 DAYS NOR LEAD ASSESS & MGT SRV/PX W/IN NXT 24H/SOON APT; 11-20 MIN MED DIS 2014 [facility] MANUAL THERAPY TECHNIQUES (EG, MOBILIZATION/ MANIPULATION, MANUAL LYMPHATIC DRAINAGE, MANUAL TRACTION), 1 OR MORE REGIONS, EACH 15 MINUTES 2014 [facility] TELE ASSESS & MGT SRV PROV QUAL NONPHYS HLTH CARE PRO TO EST PAT,PARENT,GUARD NOT ORIG REL ASSESS & MGT SRV PROV W/IN PREV 7 DAYS NOR LEAD ASSESS & MGT SRV/PX W/IN NXT 24H/SOON APT; 11-20 MIN MED DIS 2014 [facility] MANUAL THERAPY TECHNIQUES (EG, MOBILIZATION/ MANIPULATION, MANUAL LYMPHATIC DRAINAGE, MANUAL TRACTION), 1 OR MORE REGIONS, EACH 15 MINUTES 2014 [facility] PSYCHIATRIC DIAGNOSTIC EVALUATION 2014 [facility] MANUAL THERAPY TECHNIQUES (EG, MOBILIZATION/ MANIPULATION, MANUAL LYMPHATIC DRAINAGE, MANUAL TRACTION), 1 OR MORE REGIONS, EACH 15 MINUTES 2014 [facility] MANUAL THERAPY TECHNIQUES (EG, MOBILIZATION/ MANIPULATION, MANUAL LYMPHATIC DRAINAGE, MANUAL TRACTION), 1 OR MORE REGIONS, EACH 15 MINUTES 2014 [facility] POSTOPERATIVE FOLLOW-UP VISIT, NORMALLY INCLUDED IN THE SURGICAL PACKAGE, INDICATE THAT EVALUATION & MANAGEMENT SERVICE WAS PERFORMED DURING A POSTOPERATIVE PERIOD REASON RELATED ORIGINAL PROCEDURE 2014 DoD APPLICATION OF A MODALITY TO 1 OR MORE AREAS; HOT OR COLD PACKS 2014 [facility] MANUAL THERAPY TECHNIQUES (EG, MOBILIZATION/ MANIPULATION, MANUAL LYMPHATIC DRAINAGE, MANUAL TRACTION), 1 OR MORE REGIONS, EACH 15 MINUTES 2014 DoD APPLICATION OF A MODALITY TO 1 OR MORE AREAS; HOT OR COLD PACKS 2014 [facility] MANUAL THERAPY TECHNIQUES (EG, MOBILIZATION/ MANIPULATION, MANUAL LYMPHATIC DRAINAGE, MANUAL TRACTION), 1 OR MORE REGIONS, EACH 15 MINUTES 2014 [facility] POSTOPERATIVE FOLLOW-UP VISIT, NORMALLY INCLUDED IN THE SURGICAL PACKAGE, INDICATE THAT EVALUATION & MANAGEMENT SERVICE WAS PERFORMED DURING A POSTOPERATIVE PERIOD REASON RELATED ORIGINAL PROCEDURE 2014 [facility] MANUAL THERAPY TECHNIQUES (EG, MOBILIZATION/ MANIPULATION, MANUAL LYMPHATIC DRAINAGE, MANUAL TRACTION), 1 OR MORE REGIONS, EACH 15 MINUTES 2014 [facility] MANUAL THERAPY TECHNIQUES (EG, MOBILIZATION/ MANIPULATION, MANUAL LYMPHATIC DRAINAGE, MANUAL TRACTION), 1 OR MORE REGIONS, EACH 15 MINUTES 2014 [facility] MANUAL THERAPY TECHNIQUES (EG, MOBILIZATION/ MANIPULATION, MANUAL LYMPHATIC DRAINAGE, MANUAL TRACTION), 1 OR MORE REGIONS, EACH 15 MINUTES 2014 [facility] MANUAL THERAPY TECHNIQUES (EG, MOBILIZATION/ MANIPULATION, MANUAL LYMPHATIC DRAINAGE, MANUAL TRACTION), 1 OR MORE REGIONS, EACH 15 MINUTES 2014 [facility] MANUAL THERAPY TECHNIQUES (EG, MOBILIZATION/ MANIPULATION, MANUAL LYMPHATIC DRAINAGE, MANUAL TRACTION), 1 OR MORE REGIONS, EACH 15 MINUTES 2014 DoD EXERCISE EQUIPMENT 2014 [facility] MANUAL THERAPY TECHNIQUES (EG, MOBILIZATION/ MANIPULATION, MANUAL LYMPHATIC DRAINAGE, MANUAL TRACTION), 1 OR MORE REGIONS, EACH 15 MINUTES 2014 DoD APPLICATION OF A MODALITY TO 1 OR MORE AREAS; HOT OR COLD PACKS 2014 DoD APPLICATION OF A MODALITY TO 1 OR MORE AREAS; HOT OR COLD PACKS 2014 DoD APPLICATION OF A MODALITY TO 1 OR MORE AREAS; HOT OR COLD PACKS 2014 DoD POSTOPERATIVE FOLLOW-UP VISIT, NORMALLY INCLUDED IN THE SURGICAL PACKAGE, INDICATE THAT EVALUATION & MANAGEMENT SERVICE WAS PERFORMED DURING A POSTOPERATIVE PERIOD REASON RELATED ORIGINAL PROCEDURE 2014 DoD APPLICATION OF A MODALITY TO 1 OR MORE AREAS; HOT OR COLD PACKS 2014 DoD APPLICATION OF A MODALITY TO 1 OR MORE AREAS; HOT OR COLD PACKS 2014 [facility]D MANUAL THERAPY TECHNIQUES (EG, MOBILIZATION/ MANIPULATION, MANUAL LYMPHATIC DRAINAGE, MANUAL TRACTION), 1 OR MORE REGIONS, EACH 15 MINUTES 2014 DoD POSTOPERATIVE FOLLOW-UP VISIT, NORMALLY INCLUDED IN THE SURGICAL PACKAGE, INDICATE THAT EVALUATION & MANAGEMENT SERVICE WAS PERFORMED DURING A POSTOPERATIVE PERIOD REASON RELATED ORIGINAL PROCEDURE 2014 [facility] MANUAL THERAPY TECHNIQUES (EG, MOBILIZATION/ MANIPULATION, MANUAL LYMPHATIC DRAINAGE, MANUAL TRACTION), 1 OR MORE REGIONS, EACH 15 MINUTES 2014 DoD UNLISTED SPECIAL SERVICE, PROCEDURE OR REPORT 2014 DoD APPLICATION OF A MODALITY TO 1 OR MORE AREAS; HOT OR COLD PACKS 2014 [facility] SELF-CARE/HOME MANAGMENT TRAIN (EG,ACT OF DAILY LIVING (ADL) &COMPENSAT TRAIN,MEAL PREPARATION,SAFETY PROCS,AND INSTRUCT IN USE OF ASST TECHNOLOGY DEV/ADPT EQUIP) DIR ONE-ON-ONE CONT,EA 15 MINUTES 2014 [facility] PHYSICAL THERAPY RE-EVALUATION 2014 [facility]D THERAPEUTIC PROCEDURE,1 OR MORE AREAS,EACH 15 MINUTES;NEUROMUSCULAR REEDUCATION OF MOVEMENT,BALANCE,COORD INATION,KINESTHETIC SENSE,POSTURE,AND/OR PROPRIOCEPTION FOR SITTING AND/OR STANDING ACTIVITIES 2014 [facility] THERAPEUTIC PROCEDURE,1 OR MORE AREAS,EACH 15 MINUTES;NEUROMUSCULAR REEDUCATION OF MOVEMENT,BALANCE,COORD INATION,KINESTHETIC SENSE,POSTURE,AND/OR PROPRIOCEPTION FOR SITTING AND/OR STANDING ACTIVITIES 2014 DoD APPLICATION OF A MODALITY TO 1 OR MORE AREAS; HOT OR COLD PACKS 2014 DoD APPLICATION OF A MODALITY TO 1 OR MORE AREAS; HOT OR COLD PACKS 2014 DoD APPLICATION OF A MODALITY TO 1 OR MORE AREAS; HOT OR COLD PACKS 2014 DoD APPLICATION OF A MODALITY TO 1 OR MORE AREAS; HOT OR COLD PACKS 2014 [facility] THERAPEUTIC PROCEDURE, 1 OR MORE AREAS, EACH 15 MINUTES; THERAPEUTIC EXERCISES TO DEVELOP STRENGTH AND ENDURANCE, RANGE OF MOTION AND FLEXIBILITY 2014 [facility] THERAPEUTIC PROCEDURE,1 OR MORE AREAS,EACH 15 MINUTES;NEUROMUSCULAR REEDUCATION OF MOVEMENT,BALANCE,COORD INATION,KINESTHETIC SENSE,POSTURE,AND/OR PROPRIOCEPTION FOR SITTING AND/OR STANDING ACTIVITIES 2014 [facility] THERAPEUTIC PROCEDURE,1 OR MORE AREAS,EACH 15 MINUTES;NEUROMUSCULAR REEDUCATION OF MOVEMENT,BALANCE,COORD INATION,KINESTHETIC SENSE,POSTURE,AND/OR PROPRIOCEPTION FOR SITTING AND/OR STANDING ACTIVITIES 2014 [facility] THERAPEUTIC PROCEDURE,1 OR MORE AREAS,EACH 15 MINUTES;NEUROMUSCULAR REEDUCATION OF MOVEMENT,BALANCE,COORD INATION,KINESTHETIC SENSE,POSTURE,AND/OR PROPRIOCEPTION FOR SITTING AND/OR STANDING ACTIVITIES 2014 DoD APPLICATION OF A MODALITY TO 1 OR MORE AREAS; HOT OR COLD PACKS 2014 DoD APPLICATION OF A MODALITY TO 1 OR MORE AREAS; HOT OR COLD PACKS 2014 [facility]D THERAPEUTIC PROCEDURE,1 OR MORE AREAS,EACH 15 MINUTES;NEUROMUSCULAR REEDUCATION OF MOVEMENT,BALANCE,COORD INATION,KINESTHETIC SENSE,POSTURE,AND/OR PROPRIOCEPTION FOR SITTING AND/OR STANDING ACTIVITIES 2014 [facility] THERAPEUTIC PROCEDURE, 1 OR MORE AREAS, EACH 15 MINUTES; THERAPEUTIC EXERCISES TO DEVELOP STRENGTH AND ENDURANCE, RANGE OF MOTION AND FLEXIBILITY 2014 [facility] INFLUENZA VIRUS VACCINE, QUADRIVALENT, LIVE (LAIV4), FOR INTRANASAL USE 2014 [facility] HEALTH&BEHAV ASSESSMENT (EG, HEALTH-FOC CLINICAL INTERVIEW, BEHAVIORAL OBSERVATIONS, PSYCHOPHYSICOLOGICAL MONITOR, HEALTH-ORIENT QUESTIONNAIRES), EA 15 MIN RTQL-DR-CUBM W THE PATIENT; INIT ASSESSMENT 2013 [facility] PURE TONE AUDIOMETRY (THRESHOLD); AIR ONLY 2013 [facility] COLLECTION OF VENOUS BLOOD BY VENIPUNCTURE 2013 [facility] INTRAVENOUS INFUSION, HYDRATION; INITIAL, 31 MINUTES TO 1 HOUR 2013 [facility] INFLUENZA VIRUS VACCINE, TRIVALENT (IIV3), SPLIT VIRUS, 0.5 ML DOSAGE, FOR INTRAMUSCULAR USE 2012 [facility] PURE TONE AUDIOMETRY (THRESHOLD); AIR ONLY 2012 [facility] THERAPEUTIC PROCEDURE, 1 OR MORE AREAS, EACH 15 MINUTES; THERAPEUTIC EXERCISES TO DEVELOP STRENGTH AND ENDURANCE, RANGE OF MOTION AND FLEXIBILITY 2012 [facility] CRUTCHES, FOREARM, INCLUDES CRUTCHES OF VARIOUS MATERIALS, ADJUSTABLE OR FIXED, PAIR, COMPLETE WITH TIPS AND HANDGRIPS 2012 [facility] SCREENING TEST OF VISUAL ACUITY, QUANTITATIVE, BILATERAL 2012 [facility] HEPATITIS A VACCINE (HEPA), ADULT DOSAGE, FOR INTRAMUSCULAR USE 2012 [facility] MEDICAL NUTRITION THERAPY; GROUP (2 OR MORE INDIVIDUAL(S)), EACH 30 MINUTES 2012 [facility] BLOOD PRESSURE MEASURED (CKD)(DM) 2012 DoD Social History Combined list of available smoking, tobacco, and other social history from Department of Defense and Veterans Affairs facilities. Social History Type Response Date Comment Sourc e Tobacco smoking status [place] [facility]IF[facility] NON-TOBACCO USER 12/11/2015 [facility] This section is an empty social history section. DoD Plan of Care List of future care activities from Department of Veterans Affairs facilities. Additional future care activities may be listed in the Assessment and Plan section. Date/Time Care Activity Care Activity Detail Facili ty 01/23/2025 AMBULATORY - PSYCHIATRY AMBULATORY - [facility]C [facility] Advance Directives List of completed, amended, or rescinded Advance Directives on record at Department of Veterans Affairs facilities. An actual copy of the Directive is not included. Date Advance Directive Provider Source 01/02/2025 ADVANCE DIRECTIVE DISCUSSION [facility]
--- OUTSIDE RECORDS SUMMARY | 2025-01-23 18:41 | XMS_ITS | Encounter Summary ---
Author Name [facility] [place] Organization [place] Address [address] [place] [address] Support Name Relationship Address Phone ESPINOZAZACHARY ROCAEL Next of Kin [address] [place], [place] [phone] ROCAEL RAMIREZ Emergency Contact [address] [place], [place] [phone] Insurance Providers: All historical and current Section [...] Patient's Relationship to Policy Rutledge BCBS OF [facility] HIGH DEDUCTIBL E HEALTH PLAN [facility] February 07, 2017 [id number] MARCIE RAMIREZ PATIENT BCBS OF [facility] PREFERRED PROVIDER ORGANIZAT ION (PPO) MACIEL GARNICA [facility] February 07, 2017 [id number] [phone] MARCIE RAMIREZ PATIENT Selected Encounter This section includes the information on record at [place] for the Encounter. Date/Time Encounter Type Encounter Description Reason Pro vider Source Jan 22, 2025 10:20 AM Outpatient Encounter ADMIN PAT ACTIVTIES (MASNONCT) [...] 20 appointments. The data comes from all [facility] facilities. Appointment Date/Time Appointment Type Appointme nt Facility Name Jan 23, 2025 11:00 AM AMBULATORY - PSY[facility]IATRY [facility] Jan 25, 2025 01:00 PM AMBULATORY - MEDICINE [facility] February 04, 2025 09:00 AM AMBULATORY - PSYCHIATRY [facility] February 15, 2025 11:00 AM AMBULATORY - PSYCHIATRY [facility] Active, Pending, and Scheduled Orders This section includes a listing of several types of active, pending, and scheduled orders, including clinic medications orders, diagnostic test orders, procedure orders and consult orders; where the start date of the order is 45 days before the date of the Encounter or 45 days after the date of theEncounter. The data comes from all [facility]. Test Date/Time Test Type Test Details Facility Name Jan 02, 2025 01:54 PM Consult Order [facility] Cons Preflight Inspector's Choice [facility] Jan 02, 2025 01:58 PM Consult Order [facility] PSYCH IATRIC MEDICATION/SOPC OUTPT Cons Preflight Inspector's Choice [facility] Jan 02, 2025 01:58 PM Consult Order BHIP PSYCH OTHERAPY/SOPC OUTPT Cons Preflight Inspector's Choice [facility] Lab Results: +/- 30 days of the encounter This section includes the Chemistry and Hematology Lab Results on record with [place] for the patient. Radiology Reports and Pathology Reports are provided separately, in subsequent sections. Lab Results This section contains the Chemistry/Hematology Results that were resulted 30 days before or 30 daysafter the date of the Encounter. Date/Time Source Result Type Result - Unit Interpretation Reference Range Specimen Type Comment Jan 02, 2025 10:23 AM [facility] CBC AND DIFF (AUTO) BLOOD Specimen Type: BLOOD No comment entered. Ordering Provider: FRED NGUYEN Report Released Date/Time: Jan 02, 2025 10:08 AM Reporting Lab: [address] [place] [address] Performing Lab: [facility] [address] [facility] [address] WBC 11.14 10*3/uL H 4.50-11.00 RBC 5.59 [...] 10*3/uL 0.00-0.00 Jan 02, 2025 10:23 AM [facility] BASIC METABOLIC PANEL (non-fasting) SERUM Spe cimen Type: SERUM No comment entered. Ordering Provider: FRED NGUYEN Report Released Date/Time: Jan 02, 2025 10:08 AM Reporting Lab: [facility] [address] [facility] [address] Performing Lab: [address] [address] UREA NITROGEN 10 mg/dL 7-25 GLUCOSE 96 mg/dL 65-100 SODIUM 139 mmol/L 135-145 POTASSIUM 4.0 mmol/L 3.5-5.0 CHLORIDE 106 mmol/L 100-110 CO2 23 meq/L 20-30 CALCIUM 9.0 mg/dL 8.5-10.2 CREATININE, Serum 0.79 mg/dL 0.50-1.40 eGFR(CKD-EPI 2020) >90 mL/min >60 Jan 02, 2025 10:23 AM [facility] MAGNESIUM SERUM Specimen Type: SERUM No comment entered. Ordering Provider: FRED NGUYEN Report Released Date/Time: Jan 02, 2025 10:08 AM Reporting Lab: [address] [address] Performing Lab: [address] [address] MAGNESIUM 1.9 mg/dL 1.6-2.6 Jan 02, 2025 10:23 AM [facility] ETHANOL PLASMA Specimen Type: PLASM A No comment entered. Ordering Provider: FRED NGUYEN Report Released Date/Time: Jan 02, 2025 10:08 AM Reporting Lab: [address] [address] Performing Lab: [address] [address] ETHANOL <10 mg/dL <10 is Negative Jan 02, 2025 10:23 AM [facility] LIVER FUNCTION SERUM Specimen Type: SERUM No comment entered. Ordering Provider: FRED NGUYEN Report Released Date/Time: Jan 02, 2025 10:08 AM Reporting Lab: [address] [address] Performing Lab: [address] [address] PROTEIN,TOTAL 7.2 g/dL 6.0-8.3 ALBUMIN 3.9 g/dL 3.5-5.0 ALKALINE PHOSPHATASE 83 U/L 40-150 AST 17 U/L 5-34 ALT 15 U/L BILIRUBIN, TOTAL 0.6 mg/dL 0.2-1.2 Jan 02, 2025 10:23 AM [facility] DRUGS OF ABUSE URINE Specimen [...] Jan 02, 2025 10:08 AM Reporting Lab: [address] [address] Performing Lab: [address] [address] AMPHETAMINES SCREEN NONE-DETECTED None-Detected, Cutoff = 1000 [...] H 1.003-1.020 Jan 02, 2025 10:23 AM [facility] COVID-19 SCREENING PANEL (CEPHEID) NASOPHARYNX Spec imen Type: NASOPHARYNX Comment: This test is authorized for emergency use only. False negative results may occur if virus is present at levels below the analytical limit of detection.Negative results do not preclude SARS-CoV-2 infection and should not be used as the sole basis for treatment or other patient management decisions.Cepheid FLUVID: HCPs: https://www.fda.gov/media/713762/download. Patients: https://www.fda.gov/media/840560/download Ordering Provider: FRED NGUYEN Report Released Date/Time: Jan 02, 2025 10:08 AM Reporting Lab: [facility] [address] [facility] [address] Performing Lab: [facility] [address] [facility] [address] COVID-19 SCR (CEPHEID) NEGATIVE Negative Advance Directives: All historical and current Section Date Range: From patient's date of to the date document was created. This section includes ALL of a patient's completed or amended [place] Advance and Rescinded Directives. The entries below indicate that a directive exists for the patient, but an actual copy is not included with this document. The data comes from all [place] facilities. Date Advance Directives Provider Source Jan 02, 2025 ADVANCE DIRECTIVE DISCUSSION PEGGY REARDON [facility] Encounter Notes: All associated encounter notes This section contains the clinical notes associated to the Encounter. Date/Time Encounter Note(s) Provider Source Jan 22, 2025 10:20 AM SECURITY FIELD SUPERVISOR NOTE: LOCAL TITLE: POST 911 CASE MANAGEMENT SCREENING STANDARD TITLE: SECURITY FIELD SUPERVISOR NOTE DATE OF NOTE: JAN 22, 2025@10:20 ENTRY DATE: JAN 22, 2025@10:20:58 AUTHOR: KONSTANTIN MOREJON EXP COSIGNER: HATTIE BRODERICK URGENCY: STATUS: COMPLETED Post 06/13 Case Management Screen Unable to Contact Second attempt to contact patient for Post 06/13 Case Management Screen was unsuccessful. Comment: Left a second VM for the . TW called this to complete a TCM Screen which is part of the TCM national measure. The did not last picker the phone, so I left a VM with all my contact information on it. /nahed/ KONSTANTIN MOREJON Transitional Patient Advocate Signed: 01/22/2025 10:21 /es/ ESTER Yan LICENSED CLINICAL DIVIDEND DEPOSIT ENTRY CLERK Cosigned: 01/22/2025 12:19 KONSTANTIN MOREJON [facility]
--- OUTSIDE RECORDS SUMMARY | 2025-01-23 18:42 | XMS_ITS | Data Portability ---
Author Organization [facility] Address [address] [place] [address] Care Team Providers Care Continuity Manager Name Role Phone EFREN BARNARD Primary Care Provider EFREN BARNARD Referring Provider [phone] Assessment Encounter Date Assessment Date Assessment LastModified [...] of left shoulder Active 2020 Anupam Joe, [facility] [address] [facility], [place], [address], [facility] 13:49:17 Problem Notes None recorded. Procedures Surgical History Date Name Laterality Status Provider Name and Address Organization Details Recorded Time Test Interpretation completed POP Valadez [address] [place], [address], [facility] 11/18/2020 13:48:09 021 SMN Inj/Asp Major Left completed POP Valadez [address] [place], [address], [facility] 11/18/2020 13:51:28 Imaging Results None recorded. Procedure Notes None recorded. Medical Equipment None Reported. Vitals Date Recorded Body height Body weight Provider Name and Address Organization Details Last Updated DateTime 07/19/2023 182.9 cm 858260.6 g Not Available Capsule 07/03 17:57:39 Social History None recorded. Functional Status None recorded. Mental Status None recorded. Family History Nothing Reported. Medical History No medical history recorded. Past Encounters Encounter ID Performer Location Encounter Start Date Encounter Closed Date Diagnosis/Indication Diagnosis SNOMED-CT Code Diagnosis ICD10 Code Diagnosis Note [id number] Tahir Hicks MD [facility] [address] [place] [address] 11/18/2020 09:51:48 11/19/2020 10:12:35 Tendonitis of long head of biceps brachii of left shoulder [id number] 73309 M75.22 Health Concerns Section Related Observation LastModified by Organization Detai ls LastModified Time None Recorded Concern Status LastModified by Organization Details LastModified Time None Recorded Advance Directives Directive None Recorded Payers Encounter Date Sequence Insurance Name Policy Number Policy Rutledge Covered Member ID Rutledge Member ID Guarantor Name 11/18/2020 1 [facility]: [facility] [id number] Hubert Scherer [id number] Hubert Scherer Notes Date Note Type Note Provider Name and Address Organization Details Recorded Time 11/18/2020 text/html Diagnosis:1. Lef t shoulder proximal biceps tendinitis2. Left shoulder slap tear, subacromial bursitis /impingement Previous Surgeries:1. Left shoulder arthroscopy with anterior labral repair 2016 outside orthopedic [place] Date of Injury: History of Present Illness:Hubert [...] oral anti-inflammatories and activity modification. Anupam Joe, [facility] [address] [facility], [place], [address], [facility] [place] 11/18/2020 13:52:06
== END 2025-01-23 17:06 | disposition home or self-care (01) ==
LOC: HO.HCC 16:40
PROVIDERS: Visit Provider Internal Medicine
DX: F14.10 Cocaine abuse, uncomplicated (principal); F11.21 Opioid dependence, in remission
CPT/HCPCS: 99213

== ENCOUNTER → 2025-01-23 16:39 | Outpatient (BNVA) | payer OTHER, SELFPAY | PROVIDERS: Visit Provider Internal Medicine | DX: F14.10 Cocaine abuse, uncomplicated (principal); F11.20 Opioid dependence, uncomplicated | CPT/HCPCS: 80307 ==

== ENCOUNTER 2025-02-13 14:56 | Outpatient (AMB) | payer OTHER, SELFPAY ==
--- OUTSIDE RECORDS SUMMARY | 2025-02-13 14:57 | XMS_ITS | Encounter Summary ---
Author Name [facility] [place] Organization [facility] [place] Address [address] [place] [address] Support Name Relationship Address Phone ESPINOZAZACHARY ROCAEL Next of Kin [address] [place] [address] ESPINOZAZACHARY ROCAEL Emergency Contact [address] [place], [place] [phone] Insurance Providers: All historical and current Section [...] Patient's Relationship to Policy Rutledge BCBS OF [facility] HIGH DEDUCTIBL E HEALTH PLAN [facility] February 07, 2017 [id number] MARCIE RAMIREZ PATIENT BCBS OF [facility] PREFERRED PROVIDER ORGANADRIAN WHITLEY (PPO) MACIEL GARNICA [facility] February 07, 2017 [id number] MARCIE RAMIREZ PATIENT Selected Encounter This section includes the information on record at [place] for the Encounter. Date/Time Encounter Type Encounter Description Reason Pro vider Source Jan 23, 2025 11:00 AM Outpatient Encounter [facility] Encounter Template Text not used by [place] Plan of Treatment: Future Appointments (+ 6 [...] 20 appointments. The data comes from all [facility] facilities. Appointment Date/Time Appointment Type Appointme nt Facility Name Jan 25, 2025 01:00 PM [facility] February 04, 2025 09:00 AM AMBULATORY - PSYCHIATRY [facility] February 15, 2025 11:00 AM AMBULATORY - PSYCHIATRY [facility] Active, Pending, and Scheduled Orders This section includes a listing of several types of active, pending, and scheduled orders, including clinic medications orders, diagnostic test orders, procedure orders and consult orders; where the start date of the order is 45 days before the date of the Encounter or 45 days after the date of theEncounter. The data comes from all [facility]. Test Date/Time Test Type Test Details Facility Name Jan 02, 2025 01:54 PM Consult Order [facility] Cons Conference Translator's Choice [facility] Jan 02, 2025 01:58 PM Consult Order BHIP PSYCH OTHERAPY/SOPC OUTPT Cons Conference Translator's Choice [facility] Lab Results: +/- 30 days of the encounter This section includes the Chemistry and Hematology Lab Results on record with [place] for the patient. Radiology Reports and Pathology Reports are provided separately, in subsequent sections. Lab Results This section contains the Chemistry/Hematology Results that were resulted 30 days before or 30 daysafter the date of the Encounter. Date/Time Source Result Type Result - Unit Interpretation Reference Range Specimen Type Comment Jan 02, 2025 10:23 AM [facility] CBC AND DIFF (AUTO) BLOOD Specimen Type: BLOOD No comment entered. Ordering Provider: FRED NGUYEN Report Released Date/Time: Jan 02, 2025 10:08 AM Reporting Lab: [facility] [address] [facility] [address] Performing Lab: [address] [address] WBC 11.14 10*3/uL H 4.50-11.00 RBC 5.59 [...] 10*3/uL 0.00-0.00 Jan 02, 2025 10:23 AM [facility] BASIC METABOLIC PANEL (non-fasting) SERUM Spe cimen Type: SERUM No comment entered. Ordering Provider: FRED NGUYEN Report Released Date/Time: Jan 02, 2025 10:08 AM Reporting Lab: [facility] [address] [facility] [address] Performing Lab: [address] [address] UREA NITROGEN 10 mg/dL 7-25 GLUCOSE 96 mg/dL 65-100 SODIUM 139 mmol/L 135-145 POTASSIUM 4.0 mmol/L 3.5-5.0 CHLORIDE 106 mmol/L 100-110 CO2 23 meq/L 20-30 CALCIUM 9.0 mg/dL 8.5-10.2 CREATININE, Serum 0.79 mg/dL 0.50-1.40 eGFR(CKD-EPI 2020) >90 mL/min >60 Jan 02, 2025 10:23 AM [facility] MAGNESIUM SERUM Specimen Type: SERUM No comment entered. Ordering Provider: FRED NGUYEN Report Released Date/Time: Jan 02, 2025 10:08 AM Reporting Lab: [facility] [address] [facility] [address] Performing Lab: [address] [address] MAGNESIUM 1.9 mg/dL 1.6-2.6 Jan 02, 2025 10:23 AM [facility] ETHANOL PLASMA Specimen Type: PLASM A No comment entered. Ordering Provider: FRED NGUYEN Report Released Date/Time: Jan 02, 2025 10:08 AM Reporting Lab: [address] [address] Performing Lab: [address] [address] ETHANOL <10 mg/dL <10 is Negative Jan 02, 2025 10:23 AM [facility] LIVER FUNCTION SERUM Specimen Type: SERUM No comment entered. Ordering Provider: FRED NGUYEN Report Released Date/Time: Jan 02, 2025 10:08 AM Reporting Lab: [address] [address] Performing Lab: [address] [address] PROTEIN,TOTAL 7.2 g/dL 6.0-8.3 ALBUMIN 3.9 g/dL 3.5-5.0 ALKALINE PHOSPHATASE 83 U/L 40-150 AST 17 U/L 5-34 ALT 15 U/L BILIRUBIN, TOTAL 0.6 mg/dL 0.2-1.2 Jan 02, 2025 10:23 AM [facility] DRUGS OF ABUSE URINE Specimen Type: URINE [...] Jan 02, 2025 10:08 AM Reporting Lab: [address] [address] Performing Lab: [address] [address] AMPHETAMINES SCREEN NONE-DETECTED None-Detected, Cutoff = 1000 [...] H 1.003-1.020 Jan 02, 2025 10:23 AM [facility] COVID-19 SCREENING PANEL (CEPHEID) NASOPHARYNX Spec imen Type: NASOPHARYNX Comment: This test is authorized for emergency use only. False negative results may occur if virus is present at levels below the analytical limit of detection.Negative results do not preclude SARS-CoV-2 infection and should not be used as the sole basis for treatment or other patient management decisions.Cepheid FLUVID: HCPs: https://www.fda.gov/media/463184/download. Patients: https://www.Semmx.gov/media/458811/download Ordering Provider: FRED NGUYEN Report Released Date/Time: Jan 02, 2025 10:08 AM Reporting Lab: [facility] [address] [facility] [address] Performing Lab: [facility] [address] [facility] [address] COVID-19 SCR (CEPHEID) NEGATIVE Negative Advance Directives: All historical and current Section Date Range: From patient's date of to the date document was created. This section includes ALL of a patient's completed or amended [place] Advance and Rescinded Directives. The entries below indicate that a directive exists for the patient, but an actual copy is not included with this document. The data comes from all [place] facilities. Date Advance Directives Provider Source Jan 02, 2025 ADVANCE DIRECTIVE DISCUSSION PEGGY REARDON [facility] Encounter Notes: All associated encounter notes This section contains the clinical notes associated to the Encounter. Date/Time Encounter Note(s) Provider Source Jan 23, 2025 11:05 AM CLERICAL NOTE: LOCAL TITLE: APPOINTMENT NO SHOW STANDARD TITLE: CLERICAL NOTE DATE OF NOTE: JAN 23, 2025@11:05 ENTRY DATE: JAN 23, 2025@11:06:07 AUTHOR: JES DAWKINS EXP COSIGNER: URGENCY: STATUS: COMPLETED Patient Name: TICO RAMIREZ Patient SSN: [id number] Date and time of Appointment No show : 01/23/25 11:00 PATIENT PHONE - [phone] PHONE NUMBER [CELLULAR] - [phone] Patient's medical record was reviewed. Follow-up actions [...] 09:00 [facility] 4 02/15/2025 11:00 [facility] 4 /es/ JES DAWKINS MD STAFF PSYCHIATRIST Signed: 01/23/2025 16:06 Receipt Acknowledged By: 01/24/2025 07:13 /nahed/ Izzy Michael ADVANCED SHAPER OPERATOR JES DAWKINS
--- OUTSIDE RECORDS SUMMARY | 2025-02-13 14:58 | XMS_ITS | Data Portability ---
Author Organization [facility] Address [address] [place] [address] Care Team Providers Care Overhauler Helper Name Role Phone EFREN BARNARD Primary Care Provider EFREN BARNARD Referring Provider [phone] Assessment Encounter Date Assessment Date Assessment LastModified [...] of left shoulder Active 2020 Anupam Joe, [facility] 1 Orthopedics [facility], [place], [address], [facility] 13:49:17 Problem Notes None recorded. Procedures Surgical History Date Name Laterality Status Provider Name and Address Organization Details Recorded Time Test Interpretation completed POP Valadez [address] [place], [address], [facility] 11/18/2020 13:48:09 021 SMN Inj/Asp Major Left completed POP Valadez [address] [place], [address], [facility] 11/18/2020 13:51:28 Imaging Results None recorded. Procedure Notes None recorded. Medical Equipment None Reported. Vitals Date Recorded Body height Body weight Provider Name and Address Organization Details Last Updated DateTime 07/19/2023 182.9 cm 987414.6 g Not Available Capsule 07/03 17:57:39 Social History None recorded. Functional Status None recorded. Mental Status None recorded. Family History Nothing Reported. Medical History No medical history recorded. Past Encounters Encounter ID Performer Location Encounter Start Date Encounter Closed Date Diagnosis/Indication Diagnosis SNOMED-CT Code Diagnosis ICD10 Code Diagnosis Note [id number] Tahir Hicks MD [facility] [address] [place] [address] 11/18/2020 09:51:48 11/19/2020 10:12:35 Tendonitis of long head of biceps brachii of left shoulder [id number] 44992 M75.22 Health Concerns Section Related Observation LastModified by Organization Detai ls LastModified Time None Recorded Concern Status LastModified by Organization Details LastModified Time None Recorded Advance Directives Directive None Recorded Payers Encounter Date Sequence Insurance Name Policy Number Policy Rutledge Covered Member ID Rutledge Member ID Guarantor Name 11/18/2020 1 [facility]: [facility] [id number] Hubert Scherer [id number] Hubert Scherer Notes Date Note Type Note Provider Name and Address Organization Details Recorded Time 11/18/2020 text/html Diagnosis:1. Lef t shoulder proximal biceps tendinitis2. Left shoulder slap tear, subacromial bursitis /impingement Previous Surgeries:1. Left shoulder arthroscopy with anterior labral repair 2016 outside orthopedic [place] Date of Injury: History of Present Illness:Hubert [...] oral anti-inflammatories and activity modification. Anupam Joe, [facility] 1 Orthopedics [facility], [place], [address], [facility] [place] 11/18/2020 13:52:06
--- OUTSIDE RECORDS SUMMARY | 2025-02-13 14:58 | XMS_ITS | Encounter Summary ---
Author Name [facility] [place] [facility] [place] [facility] [place] Address [address] [place] [address] Support Name Relationship Address Phone ESPINOZAMAZIN SHARMANA Next of Kin [address] [place] [address] ESPINOZAZACHARY ROCAEL Emergency Contact [address] [place], [place] [phone] Insurance Providers: All historical and current Section [...] Patient's Relationship to Policy [place] BC[employer] [facility] [place] [facility] [employer] [facility] February 07, 2017 [id number] [phone] MARCIE RAMIREZ PATIENT BCBS OF [facility] PREFERRED PROVIDER ORGANIZAT GUTIERREZ (PPO) MACIEL GARNICA [facility] February 07, 2017 [id number] MARCIE RAMIREZ PATIENT Selected Encounter This section includes the information on record at [place] for the Encounter. Date/Time Encounter Type Encounter Description Reason Pro vider Source Jan 25, 2025 01:00 PM Outpatient Encounter PRIMARY CARE/MEDICINE E Encounter Template Text not used by VA [...] 20 appointments. The data comes from all [place] treatment facilities. Appointment Date/Time Appointment Type Appointme nt Facility Name February 04, 2025 09:00 AM AMBULATORY - PSYCHIATRY [facility] February 15, 2025 11:00 AM AMBULATORY - PSYCHIATRY [facility] Active, Pending, and Scheduled Orders This section includes a listing of several types of active, pending, and scheduled orders, including clinic medications orders, diagnostic test orders, procedure orders and consult orders; where the start date of the order is 45 days before the date of the Encounter or 45 days after the date of theEncounter. The data comes from all [facility]. Test Date/Time Test Type Test Details Facility Name Jan 02, 2025 01:54 PM Consult Order [facility] OUT[facility] Cons Tannery G[facility]mer[facility] Jan 02, 2025 01:58 PM Consult Order [facility] OUTPT Cons Tannery Gummer[facility] Choice [facility] Lab Results: +/- 30 days of the encounter This section includes the Chemistry and Hematology Lab Results on record with [place] for the patient. Radiology Reports and Pathology Reports are provided separately, in subsequent sections. Lab Results This section contains the Chemistry/Hematology Results that were resulted 30 days before or 30 daysafter the date of the Encounter. Date/Time Source Result Type Result - Unit Interpretation Reference Range Specimen Type Comment Jan 02, 2025 10:23 AM [facility] CBC AND DIFF (AUTO) BLOOD Specimen Type: BLOOD No comment entered. Ordering Provider: FRED NGUYEN Report Released Date/Time: Jan 02, 2025 10:08 AM Reporting Lab: [facility] [address] [address] Performing Lab: [address] [address] WBC 11.14 10*3/uL H 4.50-11.00 RBC 5.59 [...] 10*3/uL 0.00-0.00 Jan 02, 2025 10:23 AM [facility] BASIC METABOLIC PANEL (non-fasting) SERUM Spe cimen Type: SERUM No comment entered. Ordering Provider: FRED NGUYEN Report Released Date/Time: Jan 02, 2025 10:08 AM Reporting Lab: [facility] [address] [facility] [address] Performing Lab: [facility] [address] [facility] [address] UREA NITROGEN 10 mg/dL 7-25 GLUCOSE 96 mg/dL 65-100 SODIUM 139 mmol/L 135-145 POTASSIUM 4.0 mmol/L 3.5-5.0 CHLORIDE 106 mmol/L 100-110 CO2 23 meq/L 20-30 CALCIUM 9.0 mg/dL 8.5-10.2 CREATININE, Serum 0.79 mg/dL 0.50-1.40 eGFR(CKD-EPI 2020) >90 mL/min >60 Jan 02, 2025 10:23 AM [facility] MAGNESIUM SERUM Specimen Type: SERUM No comment entered. Ordering Provider: FRED NGUYEN Report Released Date/Time: Jan 02, 2025 10:08 AM Reporting Lab: [address] [address] Performing Lab: [address] [address] MAGNESIUM 1.9 mg/dL 1.6-2.6 Jan 02, 2025 10:23 AM [facility] ETHANOL PLASMA Specimen Type: PLASM A No comment entered. Ordering Provider: FRED NGUYEN Report Released Date/Time: Jan 02, 2025 10:08 AM Reporting Lab: [address] [address] Performing Lab: [address] [address] ETHANOL <10 mg/dL <10 is Negative Jan 02, 2025 10:23 AM [facility] LIVER FUNCTION SERUM Specimen Type: SERUM No comment entered. Ordering Provider: FRED NGUYEN Report Released Date/Time: Jan 02, 2025 10:08 AM Reporting Lab: [address] [address] Performing Lab: [address] [address] PROTEIN,TOTAL 7.2 g/dL 6.0-8.3 ALBUMIN 3.9 g/dL 3.5-5.0 ALKALINE PHOSPHATASE 83 U/L 40-150 AST 17 U/L 5-34 ALT 15 U/L BILIRUBIN, TOTAL 0.6 mg/dL 0.2-1.2 Jan 02, 2025 10:23 AM [facility] DRUGS OF ABUSE URINE Specimen Type: URINE [...] Jan 02, 2025 10:08 AM Reporting Lab: [facility] [address] [facility] [address] Performing Lab: [address] [address] AMPHETAMINES SCREEN NONE-DETECTED None-Detected, Cutoff = 1000 [...] H 1.003-1.020 Jan 02, 2025 10:23 AM [facility] COVID-19 SCREENING PANEL (CEPHEID) NASOPHARYNX Spec imen Type: NASOPHARYNX Comment: This test is authorized for emergency use only. False negative results may occur if virus is present at levels below the analytical limit of detection.Negative results do not preclude SARS-CoV-2 infection and should not be used as the sole basis for treatment or other patient management decisions.Cepheid FLUVID: HCPs: https://www.fda.gov/media/550124/download. Patients: https://www.fda.gov/media/953553/download Ordering Provider: FRED NGUYEN Report Released Date/Time: Jan 02, 2025 10:08 AM Reporting Lab: [facility] [address] [facility] [address] Performing Lab: [facility] [address] [facility] [address] COVID-19 SCR (CEPHEID) NEGATIVE Negative Advance Directives: All historical and current Section Date Range: From patient's date of to the date document was created. This section includes ALL of a patient's completed or amended [place] Advance and Rescinded Directives. The entries below indicate that a directive exists for the patient, but an actual copy is not included with this document. The data comes from all [place] facilities. Date Advance Directives Provider Source Jan 02, 2025 ADVANCE DIRECTIVE DISCUSSION PEGGY REARDON [facility] Encounter Notes: All associated encounter notes This section contains the clinical notes associated to the Encounter. Date/Time Encounter Note(s) Provider Source Jan 25, 2025 01:38 PM ADMINISTRATIVE NOT E: LOCAL TITLE: ADMINISTRATIVE NOTE STANDARD TITLE: ADMINISTRATIVE NOTE DATE OF NOTE: JAN 25, 2025@13:38 ENTRY DATE: JAN 25, 2025@13:38:51 AUTHOR: TWIN OROZCO EXP COSIGNER: URGENCY: STATUS: COMPLETED [place] was a no show for today's scheduled appointment. AMSA please reach out to reschedule. /nahed/ TWIN OROZCO LPN LPN Signed: 01/25/2025 13:39 Receipt Acknowledged By: 01/28/2025 07:15 /nahed/ NAOMI ESCOBAR for TWIN GONZALES
--- OUTSIDE RECORDS SUMMARY | 2025-02-13 14:58 | XMS_ITS | Continuity of Care Document ---
Author Name [facility] Organization [facility] Care Team Providers Care Gravity Prospecting Observer Name Role Phone [facility] Unavailable Unavailable Problems Combined list of problems from Department of Defense and Veterans Affairs facilities. It does not include entries that were removed or entered in error. 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) Active Condition DoD EXAM, OCCUPATIONAL, GROUP HOME OR SEPARATION FROM [employer] SERVICE, LONG Active Condition DoD Pain [...] ICD-10-CM F11.20 Opioid dependence, uncomplicated Active Diagnosis [facility] Diagnosis: ICD-10-CM F14.10 Cocaine abuse, uncomplicated Active Diagnosis [facility] Admit Reason: SUDS, PTSD Active Diagnosis [facility] Diagnosis: ICD-10-CM Z13.6 Encounter for screening for cardiovascular disorders Active Diagnosis [facility] Diagnosis: ICD-10-CM F11.23 Opioid dependence with withdrawal Active Diagnosis [facility] Medications Combined list of outpatient medications from Department of Defense and Veterans Affairs facilities.Medications provided include 1) outpatient medications from the last 15 months, and 2) patient-reported medications. Medication Details Route Status Patient Instructions Prescription Expires Prescription Number Last Dispense Date Ordering Provider Order Date Order Qty Source CLONIDINE HCL 0.1MG TAB TAKE ONE TABLET BY MOUTH NOW ORAL 02/01/2025 [id number] ANDREW NGUYEN 2024 1 [facility] Allergies, Adverse Reactions, Alerts Combined list of allergies from Department of Defense and Veterans Affairs facilities. It does not include entries that were removed or entered in error. Substance Category Reaction Severity Reaction type Status Date Reported Comments Source PENICILLIN Propensity to adverse reactions to drug (finding) active 6 [facility] PENICILLIN Propensity to adverse reactions to drug (finding) Eruption active 5 [facility] Penicillins Drug allergy (disorder) Unknown active 2 [facility], [place], [place] Immunizations Combined list of available immunizations from the Department of Defense and Veterans Affairs facilities. 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 (MED) complet ed influenza , live, intranasa l, quadrival ent DoD measles, mumps and rubella virus vaccine 1 2014 UNK 03 Unknown (UNK) Not Given measles, mumps and rubella virus vaccine DoD varicella virus vaccine 1 2014 UNK 21 Unknown (UNK) Not Given varicella virus vaccine DoD influenza, live, intranasal, quadrivalent 1 2013 [id number] [employer]. (MED) complet ed influenza , live, intranasa l, quadrival ent DoD Influenza, seasonal, injectable, preservative free 1 2012 [id number] 140 Sanofi Pasteur (PMC) complet ed [...] live, attenuated, for intranasal use 1 2011 [id number] [employer] (CSL) complet ed influenza virus vaccine, live, attenuate d, for intranasa l use DoD Adenovirus, type 4 and type 7, live, oral 1 2011 [id number] 143 [facility] ([facility]) complet ed Adenoviru s, type 4 and type 7, live, oral DoD poliovirus vaccine, inactivated 1 2011 [id number] 10 Sanofi Pasteur (PMC) complet ed polioviru s vaccine, inactivat ed DoD meningococcal polysaccharid e (groups A, C, Y and W-135) diphtheria toxoid conjugate vaccine (MCV4P) 1 2011 [id number] [employer] (SKB) complet ed meningoco ccal polysacch aride (groups A, C, Y and W-135) diphtheri a toxoid conjugate vaccine (MCV4P) DoD tetanus toxoid, reduced diphtheria toxoid, and acellular pertu is vaccine, adsorbed 1 2011 [id number] 115 Sanofi Pasteur (PMC) complet ed [...] Jan 02, 2025 10:08 AM Reporting Lab: [facility] [place] [facility] [address] [facility] [address] Performing Lab: [facility]RC[facility] [place] [address] [phone] [place], [place] [address] [place] [facility] CBC AND DIFF (AUTO) ERYTHROCYT ES [#/VOLUME] IN BLOOD BY AUTOMATED COUNT 5.59 10*6/uL 4.23 - 5.66 01/02 Specimen Type: BLOOD No comment entered. Ordering Provider: NIKI NGUYEN Report Released Date/Time: Jan 02, 2025 10:08 AM Reporting Lab: [facility] [place] [facility] [address] [facility] [address] Performing Lab: [facility] [place] [facility] [address] [facility] [phone] [place], [place] [address] [place] [facility] CBC AND DIFF (AUTO) HEMOGLOBIN [MASS/VOLU ME] IN BLOOD 13.9 g/dL 12.8 - 17 01/02 Specimen Type: BLOOD No comment entered. Ordering Provider: NIKI NGUYEN Report Released Date/Time: Jan 02, 2025 10:08 AM Reporting Lab: [facility]ITALR[facility]ITALTR[facility] [place] [facility] [address] [facility] [address] Performing Lab: [facility]ITALRL [facility]N [place] [address] [address] [facility] [place] [facility] CBC AND DIFF (AUTO) HEMATOCRIT [VOLUME FRACTION] OF BLOOD BY AUTOMATED COUNT 43.6 39.2 - 50.4 01/02 Specimen Type: BLOOD No comment entered. Ordering Provider: NIKI NGUYEN Report Released Date/Time: Jan 02, 2025 10:08 AM Reporting Lab: [facility] [place] [facility] [address] [facility] [address] Performing Lab: [facility] [place] [facility] [address] [facility] [address] [facility] [place] [facility] CBC AND DIFF (AUTO) MCV [ENTITIC VOLUME] BY AUTOMATED COUNT 78.0 fL 82 - 99 01/02 L Specimen Type: BLOOD No comment entered. Ordering Provider: NIKI NGUYEN Report Released Date/Time: Jan 02, 2025 10:08 AM Reporting Lab: [facility] [place] [facility] [address] [facility] [address] Performing Lab: [facility] [place] [facility] [address] [facility] [address] [facility] [place] [facility] CBC AND DIFF (AUTO) MCHC [MASS/VOLU ME] BY AUTOMATED COUNT 31.9 g/dL 30.8 - 35.1 01/02 Specimen Type: BLOOD No comment entered. Ordering Provider: NIKI NGUYEN Report Released Date/Time: Jan 02, 2025 10:08 AM Reporting Lab: [facility] [place] [facility] [address] [facility] [address] Performing Lab: [facility] [place] [facility] [address] [facility] [address] [facility] [place] [facility] CBC AND DIFF (AUTO) PLATELETS [#/VOLUME] IN BLOOD BY AUTOMATED COUNT 319 10*3/uL 140 - 360 01/02 Specimen Type: BLOOD No comment entered. Ordering Provider: NIKI NGUYEN Report Released Date/Time: Jan 02, 2025 10:08 AM Reporting Lab: [facility] [place] [facility] [address] [facility] [address] Performing Lab: [facility] [place] [facility] [address] [facility] [address] [facility] [place] [facility] CBC AND DIFF (AUTO) PLATELET MEAN VOLUME [ENTITIC VOLUME] IN BLOOD BY AUTOMATED COUNT 9.1 fL 9.2 - 12.4 01/02 L Specimen Type: BLOOD No comment entered. Ordering Provider: NIKI NGUYEN Report Released Date/Time: Jan 02, 2025 10:08 AM Reporting Lab: [facility] [address] [address] Performing Lab: [facility] [address] [facility]USE [facility] CBC AND DIFF (AUTO) ERYTHROCYT E DISTRIBUTI ON WIDTH [RATIO] BY AUTOMATED COUNT 13.4 12.0 - 16.0 01/02 Specimen Type: BLOOD No comment entered. Ordering Provider: NIKI NGUYEN Report Released Date/Time: Jan 02, 2025 10:08 AM Reporting Lab: [facility] [address] [address] Performing Lab: [facility]ENTERUSE[address] [address] [facility] CBC AND DIFF (AUTO) MONOCYTES [#/VOLUME] IN BLOOD BY AUTOMATED COUNT 0.76 10*3/uL 0.30 - 1.10 01/02 Specimen Type: BLOOD No comment entered. Ordering Provider: NIKI NGUYEN Report Released Date/Time: Jan 02, 2025 10:08 AM Reporting Lab: [facility]ENTERUSE[address] [address] Performing Lab: [facility]ITALRCEN[facility]ENTERUSE[address] [address] [facility] CBC AND DIFF (AUTO) MCH [ENTITIC MASS] BY AUTOMATED COUNT 24.9 pg 26.2 - 32.6 01/02 L Specimen Type: BLOOD No comment entered. Ordering Provider: NIKI NGUYEN Report Released Date/Time: Jan 02, 2025 10:08 AM Reporting Lab: [facility]ITALRCEN[facility]ENTERUSE[address] [address] Performing Lab: [facility] [place] [facility] [address] [facility] [address] [facility] [place] [facility] CBC AND DIFF (AUTO) NEUTROPHIL S/100 LEUKOCYTES IN BLOOD BY AUTOMATED COUNT 69.0 43.7 - 75.8 01/02 Specimen Type: BLOOD No comment entered. Ordering Provider: NIKI NGUYEN Report Released Date/Time: Jan 02, 2025 10:08 AM Reporting Lab: [facility] [place] [facility] [address] [facility] [address] Performing Lab: [facility] [place] [facility] [address] [facility] [address] [facility] [place] [facility] CBC AND DIFF (AUTO) LYMPHOCYTE S/100 LEUKOCYTES IN BLOOD BY AUTOMATED COUNT 21.3 14.0 - 42.3 01/02 Specimen Type: BLOOD No comment entered. Ordering Provider: NIKI NGUYEN Report Released Date/Time: Jan 02, 2025 10:08 AM Reporting Lab: [facility] [place] [facility] [address] [facility] [address] Performing Lab: [facility] [place] [facility] [address] [facility] [address] [facility] [place] [facility] CBC AND DIFF (AUTO) MONOCYTES/ 100 LEUKOCYTES IN BLOOD BY AUTOMATED COUNT 6.8 5.1 - 13.7 01/02 Specimen Type: BLOOD No comment entered. Ordering Provider: NIKI NGUYEN Report Released Date/Time: Jan 02, 2025 10:08 AM Reporting Lab: [facility] [place] [facility] [address] [facility] [address] Performing Lab: [facility] [place] [facility] [address] [facility] [address] [facility] [place] [facility] CBC AND DIFF (AUTO) EOSINOPHIL S/100 LEUKOCYTES IN BLOOD BY AUTOMATED COUNT 2.0 0.4 - 6.8 01/02 Specimen Type: BLOOD No comment entered. Ordering Provider: NIKI NGUYEN Report Released Date/Time: Jan 02, 2025 10:08 AM Reporting Lab: [facility] [place] [facility] [address] [facility] [address] Performing Lab: [facility] [place] [facility] [address] [facility] [address] [facility] [place] [facility] CBC AND DIFF (AUTO) BASOPHILS/ 100 LEUKOCYTES IN BLOOD BY AUTOMATED COUNT 0.7 0.1 - 2.0 01/02 Specimen Type: BLOOD No comment entered. Ordering Provider: NIKI NGUYEN J Report Released Date/Time: Jan 02, 2025 10:08 AM Reporting Lab: [facility] [place] [facility] [address] [facility] [address] Performing Lab: [facility] [place] [facility] [address] [facility] [address] [facility] [place] [facility] CBC AND DIFF (AUTO) NEUTROPHIL S [#/VOLUME] IN BLOOD BY AUTOMATED COUNT 7.69 10*3/uL 2.20 - 7.60 01/02 H Specimen Type: BLOOD No comment entered. Ordering Provider: NIKI NGUYEN Report Released Date/Time: Jan 02, 2025 10:08 AM Reporting Lab: [facility] [place] [facility] [address] [facility] [address] Performing Lab: [facility] [place] [facility] [address] [facility] [address] [facility] [place] [facility] CBC AND DIFF (AUTO) LYMPHOCYTE S [#/VOLUME] IN BLOOD BY AUTOMATED COUNT 2.37 10*3/uL 1.00 - 3.20 01/02 Specimen Type: BLOOD No comment entered. Ordering Provider: NIKI NGUYEN Report Released Date/Time: Jan 02, 2025 10:08 AM Reporting Lab: [facility] [place] [facility] [address] [facility] [address] Performing Lab: [facility] [place] [facility] [address] [facility] [address] [facility] [place] [facility] CBC AND DIFF (AUTO) EOSINOPHIL S [#/VOLUME] IN BLOOD BY AUTOMATED COUNT 0.22 10*3/uL 0.03 - 0.44 01/02 Specimen Type: BLOOD No comment entered. Ordering Provider: NIKI NGUYEN Report Released Date/Time: Jan 02, 2025 10:08 AM Reporting Lab: [facility] [place] [facility] [address] [facility] [address] Performing Lab: [facility] [place] [address] [address] [facility] [place] [facility] CBC AND DIFF (AUTO) BASOPHILS [#/VOLUME] IN BLOOD BY AUTOMATED COUNT 0.08 10*3/uL 0.01 - 0.13 01/02 Specimen Type: BLOOD No comment entered. Ordering Provider: NIKI NGUYEN Report Released Date/Time: Jan 02, 2025 10:08 AM Reporting Lab: [facility] [place] [address] [address] Performing Lab: [facility] [place] [address] CN[facility]L [facility] CBC AND DIFF (AUTO) IMMATURE GRANULOCYT ES/100 LEUKOCYTES IN BLOOD BY AUTOMATED COUNT 0.2 0.0 - 0.7 01/02 Specimen Type: BLOOD No comment entered. Ordering Provider: NIKI NGUYEN Report Released Date/Time: Jan 02, 2025 10:08 AM Reporting Lab: [facility] [place] [address] [address] Performing Lab: [facility] [place] [address] [address] [facility] CBC AND DIFF (AUTO) IMMATURE GRANULOCYT ES [#/VOLUME] IN BLOOD BY AUTOMATED COUNT 0.02 10*3/uL 0.00 - 0.06 01/02 Specimen Type: BLOOD No comment entered. Ordering Provider: NIKI NGUYEN Report Released Date/Time: Jan 02, 2025 10:08 AM Reporting Lab: [facility] [place] [address] [address] Performing Lab: [facility] [place] [address] [facility] CBC AND DIFF (AUTO) NUCLEATED ERYTHROCYT ES/100 LEUKOCYTES [RATIO] IN BLOOD BY AUTOMATED COUNT 0.0 0.0 - 0.0 01/02 Specimen Type: BLOOD No comment entered. Ordering Provider: NIKI NGUYEN Report Released Date/Time: Jan 02, 2025 10:08 AM Reporting Lab: [facility]ITALRCENTR[facility] [address] [address] Performing Lab: [facility]ITALRCEN[facility] [address] [phone] [place] [address] CBC AND DIFF (AUTO) NUCLEATED ERYTHROCYT ES [#/VOLUME] IN BLOOD BY AUTOMATED COUNT 0.00 10*3/uL 0.00 - 0.00 01/02 Specimen Type: BLOOD No comment entered. Ordering Provider: NIKI NGUYEN Report Released Date/Time: Jan 02, 2025 10:08 AM Reporting Lab: [facility] [address] [address] Performing Lab: [facility] [address] [address] [place] [address] BASIC METABOLI C PANEL (non-fas ting) UREA NITROGEN [MASS/VOLU ME] IN SERUM OR PLASMA 10 mg/dL 7 - 25 01/02 Specimen Type: SERUM No comment entered. Ordering Provider: NIKI NGUYEN Report Released Date/Time: Jan 02, 2025 10:08 AM Reporting Lab: [facility]ITALRC[facility] [address] [address] Performing Lab: [facility] [address] [address] [place], [place] [address] [facility] BASIC METABOLI C PANEL (non-fas ting) GLUCOSE [MASS/VOLU ME] IN SERUM OR PLASMA 96 mg/dL 65 - 100 01/02 Specimen Type: SERUM No comment entered. Ordering Provider: NIKI NGUYEN Report Released Date/Time: Jan 02, 2025 10:08 AM Reporting Lab: [facility] [place] [facility] [address] [facility] [address] Performing Lab: [facility] [facility] [address] [facility] [address] [facility] [place] [facility] BASIC METABOLI C PANEL (non-fas ting) SODIUM [MOLES/VOL UME] IN SERUM OR PLASMA 139 mmol/L 135 - 145 01/02 Specimen Type: SERUM No comment entered. Ordering Provider: NIKI NGUYEN RAMY J Report Released Date/Time: Jan 02, 2025 10:08 AM Reporting Lab: [facility] [place] [facility] [address] [facility] [address] Performing Lab: [facility] [place] [facility] [address] [facility] [address] [facility]ITALRL W[facility]N [place] [facility] BASIC METABOLI C PANEL (non-fas ting) POTASSIUM [MOLES/VOL UME] IN SERUM OR PLASMA 4.0 mmol/L 3.5 - 5.0 01/02 Specimen Type: SERUM No comment entered. Ordering Provider: NIKI NGUYEN RAMY J Report Released Date/Time: Jan 02, 2025 10:08 AM Reporting Lab: [facility] [place] [facility] [address] [facility] [address] Performing Lab: [facility] [place] [address] [address] [facility] [facility] BASIC METABOLI C PANEL (non-fas ting) CHLORIDE [MOLES/VOL UME] IN SERUM OR PLASMA 106 mmol/L 100 - 110 01/02 Specimen Type: SERUM No comment entered. Ordering Provider: NIKI NGUYEN RAMY J Report Released Date/Time: Jan 02, 2025 10:08 AM Reporting Lab: [facility] [facility] [address] [facility] [address] Performing Lab: [facility] [place] [address] [address] [facility] [facility] BASIC METABOLI C PANEL (non-fas ting) CARBON DIOXIDE, TOTAL [MOLES/VOL UME] IN SERUM OR PLASMA 23 meq/L 20 - 30 01/02 Specimen Type: SERUM No comment entered. Ordering Provider: NIKI NGUYEN Report Released Date/Time: Jan 02, 2025 10:08 AM Reporting Lab: [address] [address] Performing Lab: [address] [address] [facility] BASIC METABOLI C PANEL (non-fas ting) CALCIUM [MASS/VOLU ME] IN SERUM OR PLASMA 9.0 mg/dL 8.5 - 10.2 01/02 Specimen Type: SERUM No comment entered. Ordering Provider: NIKI NGUYEN Report Released Date/Time: Jan 02, 2025 10:08 AM Reporting Lab: [address] [address] Performing Lab: [address] [address] [facility] BASIC METABOLI C PANEL (non-fas ting) CREATININE [MASS/VOLU ME] IN SERUM OR PLASMA 0.79 mg/dL 0.50 - 1.40 01/02 Specimen Type: SERUM No comment entered. Ordering Provider: NIKI NGUYEN Report Released Date/Time: Jan 02, 2025 10:08 AM Reporting Lab: [address] [address] Performing Lab: [address] [address] [facility] BASIC METABOLI C PANEL (non-fas ting) GLOMERULAR FILTRATION RATE/1.73 SQ M.PREDICTE D [VOLUME RATE/AREA] IN SERUM, PLASMA OR BLOOD BY CREATININE -BASED FORMULA (CKD-EPI 2020) >90mL/mi n 60 01/02 Specimen Type: SERUM No comment entered. Ordering Provider: NIKI NGUYEN Report Released Date/Time: Jan 02, 2025 10:08 AM Reporting Lab: [facility] [place] [facility] [address] [facility] [address] Performing Lab: [facility] [place] [facility] [address] [facility] [address] [facility] [place] [facility] MAGNESIU M MAGNESIUM [MASS/VOLU ME] IN SERUM OR PLASMA 1.9 mg/dL 1.6 - 2.6 01/02 Specimen Type: SERUM No comment entered. Ordering Provider: NIKI NGUYEN RAMY J Report Released Date/Time: Jan 02, 2025 10:08 AM Reporting Lab: [facility] [place] [facility] [address] [facility] [address] Performing Lab: [facility] [place] [facility] [address] [facility] [address] [facility] [place] [facility] ETHANOL ETHANOL [MASS/VOLU ME] IN SERUM OR PLASMA <10mg/dL <10 is Negative - 10 01/02 Specimen Type: PLASMA No comment entered. Ordering Provider: NIKI NGUYEN RAMY J Report Released Date/Time: Jan 02, 2025 10:08 AM Reporting Lab: [facility] [place] [facility] [address] [facility] [address] Performing Lab: [facility] [place] [facility] [address] [facility] [address] [facility] [place] [facility] LIVER FUNCTION PROTEIN [MASS/VOLU ME] IN SERUM OR PLASMA 7.2 g/dL 6.0 - 8.3 01/02 Specimen Type: SERUM No comment entered. Ordering Provider: NIKI NGUYEN RAMY J Report Released Date/Time: Jan 02, 2025 10:08 AM Reporting Lab: [facility] [place] [facility] [address] [facility] [address] Performing Lab: [facility] [facility] [address] [facility] [address] [facility] [place] [facility] LIVER FUNCTION ALBUMIN [MASS/VOLU ME] IN SERUM OR PLASMA BY BROMOCRESO L PURPLE (BCP) DYE BINDING METHOD 3.9 g/dL 3.5 - 5.0 01/02 Specimen Type: SERUM No comment entered. Ordering Provider: NIKI NGUYEN RAMY Lanette Report Released Date/Time: Jan 02, 2025 10:08 AM Reporting Lab: [place] [facility] [place] [facility] [address] [facility] [address] Performing Lab: [facility] [address] [facility] [address] [facility] [place] [facility] LIVER FUNCTION ALKALINE PHOSPHATAS E [ENZYMATIC ACTIVITY/V OLUME] IN SERUM OR PLASMA 83 U/L 40 - 150 01/02 Specimen Type: SERUM No comment entered. Ordering Provider: NIKI NGUYEN Report Released Date/Time: Jan 02, 2025 10:08 AM Reporting Lab: [facility] [address] [facility] [address] Performing Lab: [facility] [address] [facility] [address] [facility] LIVER FUNCTION ASPARTATE AMINOTRANS FERASE [ENZYMATIC ACTIVITY/V OLUME] IN SERUM OR PLASMA BY WITH P-5'-P 17 U/L 5 - 34 01/02 Specimen Type: SERUM No comment entered. Ordering Provider: NIKI NGUYEN Report Released Date/Time: Jan 02, 2025 10:08 AM Reporting Lab: [facility] [address] [facility] [address] Performing Lab: [facility] [address] [facility] [address] [facility] LIVER FUNCTION ALANINE AMINOTRANS FERASE [ENZYMATIC ACTIVITY/V OLUME] IN SERUM OR PLASMA BY WITH P-5'-P 15 U/L 01/02 Specimen Type: SERUM No comment entered. Ordering Provider: NIKI NGUYEN Report Released Date/Time: Jan 02, 2025 10:08 AM Reporting Lab: [facility] [address] [facility] [address] Performing Lab: [facility] [address] [facility] [address] [facility] LIVER FUNCTION BILIRUBIN. TOTAL [MASS/VOLU ME] IN SERUM OR PLASMA 0.6 mg/dL 0.2 - 1.2 01/02 Specimen Type: SERUM No comment entered. Ordering Provider: NIKI NGUYEN J Report Released Date/Time: Jan 02, 2025 10:08 AM Reporting Lab: [address] [address] Performing Lab: [address] [address] [facility] DRUGS OF ABUSE AMPHETAMIN E+METHAMPH ETAMINE [...] Jan 02, 2025 10:08 AM Reporting Lab: [address] [address] Performing Lab: [address] [address] [facility] DRUGS OF ABUSE BENZODIAZE PINES [[place]] [...] Jan 02, 2025 10:08 AM Reporting Lab: [address] [address] Performing Lab: [address] [address] [facility] DRUGS OF ABUSE BENZOYLECG ONINE [[place]] [...] Jan 02, 2025 10:08 AM Reporting Lab: [address] [address] Performing Lab: [address] [address] [facility] DRUGS OF ABUSE OPIATES [[place]] IN [...] Jan 02, 2025 10:08 AM Reporting Lab: [facility] [address] Performing Lab: [address] [address] [facility] DRUGS OF ABUSE CANNABINOI DS [[place]] [...] Jan 02, 2025 10:08 AM Reporting Lab: [address] [address] Performing Lab: [address] [address] [facility] DRUGS OF ABUSE BARBITURAT ES [[place]] [...] Jan 02, 2025 10:08 AM Reporting Lab: [facility] [address] Performing Lab: [address] [address] [facility] DRUGS OF ABUSE OXYCODONE [[place]] IN [...] Jan 02, 2025 10:08 AM Reporting Lab: [address] [address] Performing Lab: [address] [address] [facility] DRUGS OF ABUSE BUPRENORPH INE [[place]] [...] Jan 02, 2025 10:08 AM Reporting Lab: [address] [address] Performing Lab: [address] [address] [facility] DRUGS OF ABUSE ETHANOL [MASS/VOLU ME] [...] Jan 02, 2025 10:08 AM Reporting Lab: [address] [address] Performing Lab: [address] [address] [facility] DRUGS OF ABUSE FENTANYL [[place]] IN URINE BY SCREEN METHOD POSITIVE ng/mL 01/02 Specimen Type: URINE Comment: Urine with [...] Jan 02, 2025 10:08 AM Reporting Lab: [address] [address] Performing Lab: [address] [address] [facility] DRUGS OF ABUSE PH OF URINE [...] Jan 02, 2025 10:08 AM Reporting Lab: [facility] [address] Performing Lab: [address] [address] [facility] DRUGS OF ABUSE CREATININE [MASS/VOLU ME] [...] Jan 02, 2025 10:08 AM Reporting Lab: [facility] [address] Performing Lab: [facility] [address] [address] [facility] DRUGS OF ABUSE SPECIFIC GRAVITY OF [...] Jan 02, 2025 10:08 AM Reporting Lab: [facility] [address] Performing Lab: [address] [address] [facility] COVID-19 SCREENIN G PANEL ([employer] ) SARS-COV-2 (COVID-19) RNA [[place]] IN RESPIRATOR [...] patient management decisions.C epheid FLUVID: HCPs: https://www .fda.gov/ri marilin/643198/ download. Patients: https://www .fda.gov/ri marilin/181491/ download Ordering Provider: NIKI NGUYEN Report Released Date/Time: Jan 02, 2025 10:08 AM Reporting Lab: [address] [address] Performing Lab: [address] [address] [facility] Vital Signs Combined list of inpatient and outpatient Vital Signs from Department of Defense and Veterans Affairs, ranging from 12 months to all on record, depending upon the facility. Vital Sign Value Date Comments Source PAIN 3 01/02/2025 14:13:00 [facility] Encounters Combined list of: 1) Encounters from Department of Veterans Affairs facilities going backup to the last 18 months, not all [place] inpatient encounters are included; 2) Encounters from the Department of Defense facilities going backup to 280 months. Location Location Details Encounter Type Encounter Number Reason For Visit Attending Provider ADM Date DC Date Status Disposition Source [place] [place] OUTPATIENT [id number] LILIA RICHARDS 06/09 Released w/o Limitations [facility] [place] [facility] [place] OUTPATIENT [id number] NEENA SEO 06/12 Released w/o Limitations [facility] [place] [place] Hearing [facility]) OUTPATIENT [id number] hearing test NURY BERMUDEZ 06/12 Released w/o Limitations [facility] [place]) OUTPATIENT [id number] URI coughin g / PULM shortne ss of breath YENIFER GARZA 06/30 Released with Work/Duty Limitations [facility] 1 FE) OUTPATIENT [id number] F/U STOMACH ILLNESS (E.CO) ROCKY HIGGINBOTHAM 10/26 Released with Work/Duty Limitations [facility] 1 FE) [facility]) OUTPATIENT [id number] Notes Entered by: Karen RUST 29 Nov 2012 0913 ------- ------- ------- ------- -- DAAN Ching 11/29 Released w/o Limitations [facility] FE) [facility]) OUTPATIENT [id number] Notes Entered by: VARGAS SINGH 29 Nov 2012 1504 ------- ------- ------- ------- -- Hosea hernandez Inproce ssing-N VARGAS COPE 11/29 Released w/o Limitations [facility] FE) [facility] S01A [facility] 2 FE) OUTPATIENT [id number] RT. SHOULDE R PAIN X 3 DAYS RODERICK MCGHEE 12/06 Released w/o Limitations [facility] S01A [facility] 2 FE) [facility](Immuniz ation Clinic FE) OUTPATIENT [id number] Notes Entered by: EFREN REYES 26 Dec 2012 1400 ------- ------- ------- ------- -- screen for kevins VENKATA COTAD 12/26 Released w/o Limitations [facility] unizati on Clinic FE) [facility]) OUTPATIENT [id number] PAIN IN RIBS X 3 DAYS STERLING ARANDA 02/19 Released w/o Limitations [facility]) [facility] S[facility] 2 FE) OUTPATIENT [id number] PHA, : January YU DUGAN 03/07 Released w/o Limitations [facility] S[facility] 2 FE) [facility] S01A [facility] 2 FE) OUTPATIENT [id number] f/u l knee pain YU DUGAN 04/12 Released with Work/Duty Limitations [facility] 2 FE) [facility] 2 FE) OUTPATIENT [id number] F/U LT KNEE PAIN WENDY GUTHRIE 06/06 Released w/o Limitations [facility] 2 FE) [facility] 2 FE) TELE CONSULT [id number] Notes Entered by: Iman GUTHRIE 06 Jun 2013 1219 ------- ------- ------- ------- -- Knee films WENDY GUTHRIE 06/06 [facility] S[facility] 2 FE) [facility](Orthope dics FE) OUTPATIENT [id number] CLOSED STRESS FRACTUR E OF TIBIA LEFT BOBBY NELSON 06/13 Released w/o Limitations [facility](Ort hopedic s FE) [facility](Phy Ther FE) OUTPATIENT [id number] ARTHRAL AFIA - KNEE / PATELLA / TIBIA / FIBULA IRON STEVENS 06/25 Released w/o Limitations [facility](Phy Ther FE) [facility](Orthope dics FE) OUTPATIENT [id number] mri results BOBBY NELSON A 07/10 Released w/o Limitations [facility] S01A TM 2 FE) OUTPATIENT [id number] F/U LEG PAIN WENDY GUTHRIE 07/24 Released with Work/Duty Limitations [facility] S01A [facility] 2 FE) [facility] OUTPATIENT [id number] Notes Entered by: DOUG THOMAS 26 Jul 2013 0857 ------- ------- ------- ------- -- Hearing Test WALDO MELENDEZ 07/26 Released w/o Limitations [facility] FE) [facility] h([facility]) OUTPATIENT [id number] Notes Entered by: VINCENT OSUNA 02 Aug 2013 0923 ------- ------- ------- ------- -- Afluria IRON BECKER 08/02 Released w/o Limitations [facility] OUTPATIENT [id number] follow up BOBBY NELSON A 08/21 Released w/o Limitations [facility](Or hopedic s FE) [facility] S01A [facility] 2 FE) OUTPATIENT [id number] sore throat, vomitin g,heada rickie RENETTA, RENETTA N 08/27 [facility]ased with Work/Duty Limitations [facility] S01A [facility] 2 FE) [facility] S01A TM 2 FE) OUTPATIENT [id number] SORE THROAT, HEADACH E,VOMIT ING,COU GH X 3 DAYS YE RAI 11/20 [facility] w/o Limitations [facility] S01A [facility] 2 FE) [facility]([address] 2 FE) OUTPATIENT [id number] Notes Entered by: Lanette MARQUEZ 27 Nov 2013 0720 ------- ------- ------- ------- -- Flu-lik e symptom s AISSATOU GODOY 11/27 Sick at Home/Quarter s [facility]([address] 2 FE) [facility]([address] 2 FE) OUTPATIENT [id number] Notes Entered by: Lanette MARQUEZ 04 Dec 2013 1338 ------- ------- ------- ------- -- flu-lik e symptom s CINDY LEBRON F 12/04 Sick at Home/Quarter s [facility]([address] 2 FE) [facility]([address] 2 FE) OUTPATIENT [id number] URI s/s NVD x 2 weeks DOMINIK CORTEZ 12/05 Released w/o Limitations [facility]([address] 2 FE) [facility]([address] 2 FE) OUTPATIENT [id number] flu like s/s x 2 weeks YE RAI A 12/06 Sick at Home/Quarter s [facility]([address] 2 FE) [facility]([address] 2 FE) OUTPATIENT [id number] Notes Entered by: JOSE LUIS SHAFER 07 Dec 2013 0918 ------- ------- ------- ------- -- vomitin g and diarrhe a YE RAI A 12/07 Sick at Home/Quarter s [facility]([address] 2 FE) [facility]([address] 2 FE) OUTPATIENT [id number] F/U LEFT KNEE PAIN YE RAI A 01/30 Released w/o Limitations [facility]([address] 2 FE) [facility]([address] 2 FE) OUTPATIENT [id number] Bilater al knee pain YE RAI A 04/24 Released w/o Limitations [facility]([address] 2 FE) [facility]([address] 2 FE) TELE CONSULT [id number] Notes Entered by: YE RAI A 03 May 2014 1128 ------- ------- ------- ------- -- EDIN Garcia 05/03 [facility]([address] 2 FE) [facility]([address] 2 FE) OUTPATIENT [id number] PHA (requir ement met) RENZO MALONE 06/04 Released w/o Limitations [facility]([address] 2 FE) OUTPATIENT [id number] Notes Entered by: REX HILL 11 Jun 2014 0754 ------- ------- ------- ------- -- Cough, nasal congest ion and headach e CINDY LEBRON 06/11 Released with Work/Duty Limitations [facility]([address] 2 FE) [facility]([address] 2 FE) OUTPATIENT [id number] f/u flu like symptom s YE RAI A 06/13 Released with Work/Duty Limitations [facility]([address] 2 FE) [facility](Public Health Nursing FE) OUTPATIENT [id number] HIV TESTING NADYA HUFF P 06/13 Released w/o Limitations [facility](Pub [facility] Health Nursing FE) [facility](Hearing Conservat ion FE) OUTPATIENT [id number] Notes Entered by: DOMINGO LAYNE 26 Jun 2014 09 ------- ------- ------- ------- -- Audiogr am OLLIE LAYNE 06/26 Released w/o Limitations [facility](Hea ring [facility] FE) [facility]([address] 2 FE) OUTPATIENT [id number] left shoulde r injury x 2 yrs RENZO MALONE 09/09 Released with Work/Duty Limitations [facility]([address] 2 FE) OUTPATIENT [id number] Notes Entered by: NIKI TODD 09 Sep 2014 1110 ------- ------- ------- ------- -- WT/BMI FRED MENARD 09/09 Released w/o Limitations [facility]([address] 2 FE) TELE CONSULT [id number] Notes Entered by: Iman MALONE 24 Sep 2014 0840 ------- ------- ------- ------- -- MRI results CINDY LEBRON F 09/24 [facility]([address] 2 FE) [facility]([address] 2 FE) OUTPATIENT [id number] Notes Entered by: MELVIN PAREDES 07 Oct 2014 0724 ------- ------- ------- ------- -- F/U from Jacques [facility]well Resume - flu-lik e illness CASEY PHAM 10/07 Sick at Home/Quarter s [facility]([address] 2 FE) [facility] Health Nursing FE) OUTPATIENT [id number] Notes Entered by: ANNIA MATIAS 09 Oct 2014 1440 ------- ------- ------- ------- -- Flu Vaccina tion IRON BECKER 10/09 Released w/o Limitations [facility](Pub lic Health Nursing FE) [facility](Orthope dics FE) OUTPATIENT [id number] SHOULDE R SPRAIN LEFT CALETOOTIEESTHER Michelle 10/11 Released w/o Limitations [facility](Ort hopedic s FE) [facility](Orthope dics FE) OUTPATIENT [id number] left shoulde r NELSON BOBBY Pires 10/18 Released w/o Limitations [facility](Ort hopedic s FE) [facility](Phy Ther FE) OUTPATIENT [id number] Shoulde r Instabi lity Labral Tear Left CORINA PATTERSON 10/22 Released w/o Limitations [facility](Phy Ther FE) [facility](Phy Ther FE) OUTPATIENT [id number] initial proc shoulde r resched LEONEL Hui 11/04 Released w/o Limitations [facility](Phy Ther FE) [facility](Phy Ther FE) OUTPATIENT [id number] L SHOULDE R LENOEL FISH 11/07 Released w/o Limitations [facility](Phy Ther FE) [facility](Phy Ther FE) OUTPATIENT [id number] L SHOULDE R LEONEL FISH 11/12 Released w/o Limitations [facility](Phy Ther FE) [facility](Phy Ther FE) OUTPATIENT [id number] L SHOULDE R LEONEL FISH 11/14 Released w/o Limitations [facility](Phy Ther FE) [facility](Phy Ther FE) OUTPATIENT [id number] L SHOULDE R LEONEL FISH 11/22 Released w/o Limitations [facility](Phy Ther FE) [facility](Phy Ther FE) OUTPATIENT [id number] L SHOULDE R LEONEL FISH 11/26 Released w/o Limitations [facility](Phy Ther FE) [facility](Phy Ther FE) OUTPATIENT [id number] f/u for shoudle CORINA Arroyo L 11/27 Released w/o Limitations [facility](Phy Ther FE) [facility](Phy Ther FE) OUTPATIENT [id number] proc l shoulde r YULIASOLEONEL RECIO H 12/02 Released w/o Limitations [facility](Phy Ther FE) [facility](Phy Ther FE) OUTPATIENT [id number] shoulde r YULIASOLEONEL RECIO 12/06 Released w/o Limitations [facility](Phy Ther FE) [facility](Orthope dics FE) OUTPATIENT [id number] 6wk follow up BOBBY NELSON 12/10 Released w/o Limitations [facility](Ort hopedic s FE) [facility](Phy Ther FE) OUTPATIENT [id number] shoulde r YULIASOLEONEL RECIO 12/10 Released w/o Limitations [facility](Phy Ther FE) [facility](Phy Ther FE) OUTPATIENT [id number] shoulde r YULIASOLEONEL RECIO 12/17 Released w/o Limitations [facility](Phy Ther FE) [facility](Phy Ther FE) OUTPATIENT [id number] shoulde r YULIASOLEONEL RECIO 12/20 Released w/o Limitations [facility](Phy Ther FE) [facility](Phy Ther FE) OUTPATIENT [id number] shoulde r MARTSOLLEONEL Rodriguez 12/24 Released w/o Limitations [facility](Phy Ther FE) [facility](Phy Ther FE) OUTPATIENT [id number] F/U FOR L SHOULDE CORINA ARROYO L 12/31 Released w/o Limitations [facility](Phy Ther FE) [facility](Orthope dics FE) OUTPATIENT [id number] MRI F/UP BOBBY NELSON 01/07 Released w/o Limitations [facility] [place]Ort hopedic s FE) [facility] FE) OUTPATIENT [id number] INITIAL PROC FOR L SHOULDE CORINA ARROYO 01/08 Released w/o Limitations [facility] [place]) [facility] OUTPATIENT [id number] INITIAL PROC FOR L SHOULDE R CORINA PATTERSON 01/15 Released w/o Limitations [facility] [place]) [facility] [facility]ope dics FE) OUTPATIENT [id number] f/up BOBBY NELSON 02/04 Released w/o Limitations [facility] [place]Ort hopedic [facility] FE) [facility] [place] [facility](Orthope dics FE) OUTPATIENT [id number] PREOP BOBBY NELSON 02/18 Released w/o Limitations [facility] [place](Ort hopedic s FE) [facility] [facility](Orthope dics FE) TELE CONSULT [id number] Notes Entered by: ALDEN NELSON 18 Mar 2015 1004 ------- ------- ------- ------- -- BOBBY Pichardo 03/18 [facility] [place] [facility](Ort hopedic s FE) [facility] [place] [facility](Orthope dics FE) OUTPATIENT [id number] [facility] BOBBY HERBERT 03/19 Released w/o Limitations [facility] [place]rt hopedic [facility] FE) [facility] [place] [facility]Phy Ther FE) OUTPATIENT [id number] EUGENE MOSS 03/20 Released w/o Limitations [facility] [place]) [facility] [facility]) OUTPATIENT [id number] l shoulde r pop THOMAS Mac 03/27 Released w/o Limitations [facility] [place]) [facility] [place] [facility](Orthope dics FE) TELE CONSULT [id number] Notes Entered by: JOSELUIS DE LA PAZ 28 Mar 2015 1148 ------- ------- ------- ------- -- Pain Medicat BOBBY Ross 03/28 [facility] [place]rt [facility]ic [facility] FE) [facility] [facility]) OUTPATIENT [id number] CHARLENE Lawsno 03/31 Released w/o Limitations [facility] [place]) [facility] [place] [facility]) OUTPATIENT [id number] SERGIO Reeves 04/02 Released w/o Limitations [facility] [place]) [facility] [place] [facility]ope dics FE) OUTPATIENT [id number] BOBBY Damon 04/02 Released w/o Limitations [facility](Ort hopedic s FE) [facility] [place] [facility] FE) TELE CONSULT [id number] Notes Entered by: DORIAN CARTER 09 Apr 2015 1413 ------- ------- ------- ------- -- yobany/ TWIN Hirsch 04/09 [facility] [place] [facility](Ort hopedic s FE) [facility] [facility](Orthope dics FE) TELE CONSULT [id number] Notes Entered by: FAREED BHAKTA 11 Apr 2015 1303 ------- ------- ------- ------- -- BOBBY Sullivan 04/11 [facility] [place] [facility](Ort hopedic s FE) [facility] [place] [facility] 2 FE) OUTPATIENT [id number] TROUBLE FALLING ASLEEP AND STAYING ASLEEP X 30 DAYS RENZO MALONE 04/11 Released w/o Limitations [facility] 2 FE) [facility](Phy Ther FE) OUTPATIENT [id number] ROMEO Durbin 04/14 Released w/o Limitations [facility](Phy Ther FE) [facility](Phy Ther FE) OUTPATIENT [id number] ROMEO Durbin 04/16 Released w/o Limitations [facility](Phy Ther FE) [facility](Phy Ther FE) OUTPATIENT [id number] ROMEO Durbin 04/18 Released w/o Limitations [facility](Phy Ther FE) [facility](Phy Ther FE) OUTPATIENT [id number] follow up EUEGNE Gamez 04/21 Released w/o Limitations [facility](Phy Ther FE) [facility](Phy Ther FE) OUTPATIENT [id number] ROMEO MCCORMACK 04/23 Released w/o Limitations [facility](Phy Ther FE) [facility](Orthope dics FE) TELE CONSULT [id number] Notes Entered by: DORIAN CARTER 23 Apr 2015 1451 ------- ------- ------- ------- -- yobany/ JOSELUIS Ruelas 04/23 [facility](Ort hopedic s FE) [facility] S[facility] 2 FE) OUTPATIENT [id number] RENZO Montague 04/24 Released w/o Limitations [facility] S[facility] 2 FE) [facility](Phy Ther FE) OUTPATIENT [id number] THOMAS SHEN 04/25 Released w/o Limitations [facility](Phy Ther FE) [facility](Phy Ther FE) OUTPATIENT [id number] L SHOULDE Iman FISH LEONEL Mendez 04/29 Released w/o Limitations [facility](Phy Ther FE) [facility](Phy Ther FE) OUTPATIENT [id number] L SHOULDMisha FISH LEONEL Mendez 05/02 Released w/o Limitations [facility](Phy Ther FE) [facility](Phy Ther FE) OUTPATIENT [id number] L SHOULDE R YULIATRAMAINE LEONEL 05/07 Released w/o Limitations [facility](Phy Ther FE) [facility] [facility]) OUTPATIENT [id number] L SHOULDE R POLINA LEONEL 05/09 Released w/o Limitations [facility](Phy Ther FE) [facility](Orthope dics FE) OUTPATIENT [id number] follow up BOBBY NELSON 05/09 Released w/o Limitations [facility](Ort hopedic s FE) [facility](Phy Ther FE) OUTPATIENT [id number] F/U FOR FOR EUGENE NERI 05/12 Released w/o Limitations [facility](Phy Ther FE) [facility](Phy Ther FE) OUTPATIENT [id number] THOMAS Shen A 05/14 Released w/o Limitations [facility](Phy Ther FE) [facility](Phy Ther FE) OUTPATIENT [id number] THOMAS Shen A 05/16 Released w/o Limitations [facility](Phy Ther FE) [facility](Phy Ther FE) OUTPATIENT [id number] THOMAS Shen E A 05/21 Released w/o Limitations [facility](Phy Ther FE) [facility](Phy Ther FE) OUTPATIENT [id number] MYA Rondon 05/23 Released w/o Limitations [facility](Phy Ther FE) [facility] S[facility] 2 [facility] OUTPATIENT [id number] F/U L RENZO MONTAGUE 05/26 Released w/o Limitations [facility](AMH S01A TMC 2 FE) [facility] [place] [facility]) OUTPATIENT [id number] l MYA Luna 05/30 Released w/o Limitations [facility](Phy Ther FE) [facility] S01[facility] T[facility] 2 FE) OUTPATIENT [id number] RENZO Mcneill 06/04 Released w/o Limitations [facility](AMH S01A TMC 2 FE) [facility] S01[facility] T[facility] 2 FE) OUTPATIENT [id number] Referre d: anxiety FRED MENARD 06/05 Released w/o Limitations [facility](AMH S01A TMC 2 FE) [facility](AMH S01A TMC 2 FE) TELE CONSULT [id number] Notes Entered by: NIKI TODD 05 Jun 2015 1400 ------- ------- ------- ------- -- Ref for anxiety RENZO MALONE 06/05 [facility](AMH S01A TMC 2 FE) [facility](Phy Ther FE) OUTPATIENT [id number] r/s follow up EUGENE Arellano 06/06 Released w/o Limitations [facility](Phy Ther FE) [facility](Orthope dics FE) TELE CONSULT [id number] Notes Entered by: Misha MADISON 10 Jun 2015 0730 ------- ------- ------- ------- -- TWIN Hirsch 06/10 [facility](Ort hopedic s FE) [facility](AMH S01A TMC 2 FE) OUTPATIENT [id number] RENZO Mcneill 06/10 Released w/o Limitations [facility](AMH S01A TMC 2 FE) [facility](Phy Ther FE) OUTPATIENT [id number] LEONEL Argueta 06/20 Released w/o Limitations [facility](Phy Ther FE) [facility](Orthope dics FE) TELE CONSULT [id number] Notes Entered by: DORIAN CARTER 30 Jun 2015 1002 ------- ------- ------- ------- -- yobany/ TWIN Hirsch 06/30 [facility](Ort hopedic s FE) [facility] S01A TMC 2 FE) OUTPATIENT [id number] RENZO Mcneill 07/03 Released w/o Limitations [facility](AMH S01A TMC 2 FE) [facility](Orthope dics FE) OUTPATIENT [id number] f/up pt BOBBY Cleveland 07/17 Released w/o Limitations [facility](Ort hopedic s FE) [facility](Phy Ther FE) OUTPATIENT [id number] ALEJANDRINA Thakur 07/21 Released w/o Limitations [facility](Phy Ther FE) [facility](Orthope dics FE) TELE CONSULT [id number] Notes Entered by: Misha MADISON 23 Jul 2015 0725 ------- ------- ------- ------- -- TWIN Hirsch 07/23 [facility](Ort hopedic s FE) [facility](Phy Ther FE) OUTPATIENT [id number] ALEJANDRINA BROWN 07/24 Released w/o Limitations [facility](Phy Ther FE) [facility] [place] [facility] S01A TMC 2 FE) TELE CONSULT [id number] Notes Entered by: JOSE LUIS SHAFER 24 Jul 2015 1602 ------- ------- ------- ------- -- ETS RENZO Fernandes 07/24 [facility] 2 [facility]) OUTPATIENT [id number] EUGENE Neri 07/25 Released w/o Limitations [facility](Phy Ther FE) [facility] [place](P[facility]) OUTPATIENT [id number] initial proc LEONEL Reaves 07/29 Released w/o Limitations [facility](Phy Ther FE) [facility](Sports Ortho NMCP) TELE CONSULT [id number] Notes Entered by: CHHAYA GALO 29 Jul 2015 1516 ------- ------- ------- ------- -- YARELY Alvarado 07/29 Released to Self Care [facility](Spo rts Ortho NMCP) [facility] Ther [facility]) OUTPATIENT [id number] LEONEL Reaves 07/31 Released w/o Limitations [facility](Phy Ther FE) [facility] h(Sports Ortho NMCP) TELE CONSULT [id number] Notes Entered by: CHHAYA GALO 05 Aug 2015 1054 ------- ------- ------- ------- -- YARELY Alvarado 08/05 Released to Self Care [facility](Spo rts Ortho NMCP) [facility]) [facility] [id number] LEONEL Reaves 08/07 Released w/o Limitations [facility](Phy Ther FE) [facility](Optomet ry [place]) OUTPATIENT [id number] ets CHAU Issa 08/08 Released w/o Limitations [facility](Opt ometry [place]) [facility](Hearing Conservat ion FE) OUTPATIENT [id number] Notes Entered by: VINCENT OSUNA 08 Aug 2015 1026 ------- ------- ------- ------- -- Hearing test PE VINCENT OSUNA 08/08 Released w/o Limitations [facility](Hea ring Conserv ation FE) [facility](Orthope dics FE) TELE CONSULT [id number] Notes Entered by: LACEY 08 Aug 2015 1048 ------- ------- ------- ------- -- BOBBY Kaba 08/08 [facility](Ort hopedic s FE) [facility](Phy Ther FE) OUTPATIENT [id number] LEONEL Reaves 08/12 Released w/o Limitations [facility](Phy Ther FE) [facility](AMH S01A TMC 2 FE) OUTPATIENT [id number] ETS RENZO Fernandes 08/18 Released w/o Limitations [facility](AMH S01A TMC 2 FE) [facility](Phy Ther FE) OUTPATIENT [id number] f/u for l shouldEUGENE Duron 08/25 Released w/o Limitations [facility](Phy Ther FE) [facility](AMH S01A TMC 2 FE) OUTPATIENT [id number] F/u for second opinon for lt RENZO Clarke 08/25 Released w/o Limitations [facility](AMH S01A TMC 2 FE) [facility](Orthope dics FE) OUTPATIENT [id number] 6wk follow up BOBBY NELSON 09/02 Released w/o Limitations [facility](Ort hopedic s FE) [facility](AMH S01A TMC 2 FE) TELE CONSULT [id number] Notes Entered by: ONOFRE SPENCER 11 Sep 2015 1514 ------- ------- ------- ------- -- NETWORK RESULTS ; ORTHOPE DICS 5 LOOK IN ARTIFAC TS and IMAGES RENZO MALONE 09/11 [facility](AMH S01A TMC 2 FE) [facility](AMH S01A TMC 2 FE) OUTPATIENT [id number] PHA (will relook at online) RENZO MALONE 10/16 Released w/o Limitations [facility](AMH S01A TMC 2 FE) [facility](Occupat [facility] FE) OUTPATIENT [id number] Notes Entered by: SANGEETA BUSTILLOS 18 Nov 2015 1458 ------- ------- ------- ------- -- Flu IRON Kunz 11/18 Released w/o Limitations [facility](Occ upation [facility] FE) [facility] Outpatient Encounter [id number] 10/02 [facility] Outpatient Encounter [id number] 10/02 [facility] En[facility] [id number] 10/08 [facility] Encounter [id number] 10/09 [facility] Encounter [id number] 11/14 [facility] Encounter [id number] 12/25 [facility] Encounter [id number] 12/25 [facility] Out[facility] Encounter [id number] 12/26 [facility] CRISIS INTERVEN SVC, 15 MIN [id number] Diagnos is: ICD-10- CM F11.20 Opioid depende nce, uncompl icated April LEVIN 01/02 [facility] OFF/OP EST MAY X REQ PHY/QHP [id number] Diagnos is: ICD-10- CM F11.23 Opioid depende nce with withCHACORTA Chavez 01/02 [facility] PSYCH DIAGNOSTIC EVALUATION [id number] Diagnos is: ICD-10- CM F11.20 Opioid depende nce, uncompl icated MAZIN STONE 01/02 [facility] OFFICE O/P EST HI 40 MIN [id number] Diagnos is: ICD-10- CM F11.20 Opioid depende nce, uncompl icated SLIM NGUYEN J 01/02 [facility] ELECTROCAR DIOGRAM REPORT [id number] Diagnos is: ICD-10- CM Z13.6 Encount er for screeni ng for cardiov ascular disorde ROSELYN Villalba U 01/02 [place] [facility] Outpatient [facility]counter [id number] 01/02 [facility] Inpatient Encounter [id number] Admit Reason: SUDS, PTSD RA Mee ARMENTA 01/02 Regular discharge from inpatient treatment. [facility] Inpatient Encounter [id number] 01/02 [facility] CASE MANAGEMENT [id number] Diagnos is: ICD-10- CM F11.20 Opioid depende nce, uncompl icated RADHA-PIE RCE,KHANG 01/02 [facility] SBSQ HOSP IP/OBS HIGH 50 [id number] Diagnos is: ICD-10- CM F14.10 Cocaine abuse, uncompl icated RA Mee ARMENTA 01/02 [facility] CASE MANAGEMENT [id number] Diagnos is: ICD-10- CM F11.20 Opioid depende nce, uncompl icated RADHA-PIE RCE,KHANG 01/02 [facility] Inpatient Encounter [id number] 01/02 [facility] [place] Outpatient Encounter [id number] 01/07 [place] Outpatient Encounter [id number] 01/17 [place] [facility] Out[facility] Encounter [id number] 01/18 [facility] Out[facility] Encounter [id number] 01/22 [facility] Out[facility] Encounter [id number] 01/23 [facility] [place] Outpatient Encounter [id number] 01/23 [place] Outpatient Encounter [id number] 01/25 [facility] Procedures Combined list of: 1) Procedures from Department of Veterans Affairs facilities going back up to thelast 18 months, not all [place] non-surgical procedures are included; 2) All procedures from the Department of Defense facilities. Procedure Procedure Type Code Date Perfomer Comments [facility] e AUDIOMETRIC TESTING OF GROUPS 2011 [facility] ADENOVIRUS VACCINE, TYPE 7, LIVE, FOR ORAL USE 2011 DoD VIS FUNCT SCREEN,AUTOMAT/SEMI-AU TOMAT BILAT QUANT DETERM VISUAL ACUITY,OCULAR ALIGN,COLOR VISION,PSEUDOISOCHROMA T PLATES,& FIELD VIS (MAY INC ALL/SOME SCRN DETERM FOR CONTRAST SENSITIV,VIS UND GLARE) 2011 DoD IMMUNIZATION ADMINISTRATION BY INTRANASAL OR ORAL ROUTE; 1 VACCINE (SINGLE OR COMBINATION VACCINE/TOXOID) 2015 DoD PHYSICAL THERAPY RE-EVALUATION 2014 DoD MANUAL THERAPY TECHNIQUES (EG, MOBILIZATION/ MANIPULATION, MANUAL LYMPHATIC DRAINAGE, MANUAL TRACTION), 1 OR MORE REGIONS, EACH 15 MINUTES 2014 DoD PURE TONE AUDIOMETRY (THRESHOLD); AIR ONLY 2014 DoD SCREENING TEST OF VISUAL ACUITY, QUANTITATIVE, BILATERAL 2014 DoD THERAPEUTIC PROCEDURE,1 OR MORE AREAS,EACH 15 MINUTES;NEUROMUSCULAR REEDUCATION OF MOVEMENT,BALANCE,COORD INATION,KINESTHETIC SENSE,POSTURE,AND/OR PROPRIOCEPTION FOR SITTING AND/OR STANDING ACTIVITIES 2014 DoD MANUAL THERAPY TECHNIQUES (EG, MOBILIZATION/ MANIPULATION, MANUAL LYMPHATIC DRAINAGE, MANUAL TRACTION), 1 OR MORE REGIONS, EACH 15 MINUTES 2014 DoD MANUAL THERAPY TECHNIQUES (EG, MOBILIZATION/ MANIPULATION, MANUAL LYMPHATIC DRAINAGE, MANUAL TRACTION), 1 OR MORE REGIONS, EACH 15 MINUTES 2014 DoD PHYSICAL THERAPY RE-EVALUATION 2014 DoD MANUAL THERAPY TECHNIQUES (EG, MOBILIZATION/ [...] EQUIP) DIR ONE-ON-ONE CONT,EA 15 MINUTES 2014 DoD PHYSICAL THERAPY RE-EVALUATION 2014 DoD THERAPEUTIC PROCEDURE,1 [...] PROPRIOCEPTION FOR SITTING AND/OR STANDING ACTIVITIES 2014 [facility] THERAPEUTIC PROCEDURE,1 OR MORE AREAS,EACH 15 MINUTES;NEUROMUSCULAR REEDUCATION OF MOVEMENT,BALANCE,COORD INATION,KINESTHETIC SENSE,POSTURE,AND/OR PROPRIOCEPTION FOR SITTING AND/OR STANDING ACTIVITIES 2014 DoD THERAPEUTIC PROCEDURE,1 OR MORE AREAS,EACH 15 MINUTES;NEUROMUSCULAR REEDUCATION OF MOVEMENT,BALANCE,COORD INATION,KINESTHETIC SENSE,POSTURE,AND/OR PROPRIOCEPTION FOR SITTING AND/OR STANDING ACTIVITIES 2014 [facility] APPLICATION OF A MODALITY TO 1 OR MORE AREAS; HOT OR COLD PACKS 2014 [facility] APPLICATION OF A MODALITY TO 1 OR MORE AREAS; HOT OR COLD PACKS 2014 [facility] THERAPEUTIC PROCEDURE,1 OR MORE AREAS,EACH 15 MINUTES;NEUROMUSCULAR REEDUCATION OF MOVEMENT,BALANCE,COORD INATION,KINESTHETIC SENSE,POSTURE,AND/OR PROPRIOCEPTION FOR SITTING AND/OR STANDING ACTIVITIES 2014 [facility] THERAPEUTIC PROCEDURE, 1 OR MORE AREAS, EACH 15 MINUTES; THERAPEUTIC EXERCISES TO DEVELOP STRENGTH AND ENDURANCE, RANGE OF MOTION AND FLEXIBILITY 2014 [facility] INFLUENZA VIRUS VACCINE, QUADRIVALENT, LIVE (LAIV4), FOR INTRANASAL USE 2014 [facility] HEALTH&BEHAV ASSESSMENT (EG, HEALTH-FOC CLINICAL INTERVIEW, BEHAVIORAL OBSERVATIONS, PSYCHOPHYSICOLOGICAL MONITOR, HEALTH-ORIENT QUESTIONNAIRES), EA 15 MIN [id number] W THE PATIENT; INIT ASSESSMENT 2013 [facility] PURE TONE AUDIOMETRY (THRESHOLD); AIR ONLY 2013 [facility] COLLECTION OF VENOUS BLOOD BY VENIPUNCTURE 2013 [facility] INTRAVENOUS INFUSION, HYDRATION; INITIAL, 31 MINUTES TO 1 HOUR 2013 [facility] INFLUENZA VIRUS VACCINE, TRIVALENT (IIV3), SPLIT VIRUS, 0.5 ML DOSAGE, FOR INTRAMUSCULAR USE 2012 [facility] PURE TONE AUDIOMETRY (THRESHOLD); AIR ONLY 2012 [facility] THERAPEUTIC PROCEDURE, 1 OR MORE AREAS, EACH 15 MINUTES; THERAPEUTIC EXERCISES TO DEVELOP STRENGTH AND ENDURANCE, RANGE OF MOTION AND FLEXIBILITY 2012 [facility] CRUTCHES, FOREARM, INCLUDES CRUTCHES OF VARIOUS MATERIALS, ADJUSTABLE OR FIXED, PAIR, COMPLETE WITH TIPS AND HANDGRIPS 2012 [facility] SCREENING TEST OF VISUAL ACUITY, QUANTITATIVE, BILATERAL 2012 [facility] HEPATITIS A VACCINE (HEPA), ADULT DOSAGE, FOR INTRAMUSCULAR USE 2012 [facility] MEDICAL NUTRITION THERAPY; GROUP (2 OR MORE INDIVIDUAL(S)), EACH 30 MINUTES 2012 [facility] BLOOD PRESSURE MEASURED (CKD)(DM) 2012 [facility] Physical Therapy: ___ Se ion Segments, 15 Minutes Each Physical Therapy: ___ Session Segments, 15 Minutes Each 55053 2014 [facility] Physical Therapy Neuromuscular Re-education Physical Therapy Neuromuscular Re-education 74418 2014 [facility] Physical Therapy: ___ Se ion Segments, 15 Minutes Each Physical Therapy: ___ Session Segments, 15 Minutes Each [id number] 2014 [facility] Modalities Cryotherapy Cold Packs Modalities Cryotherapy Cold Packs 14437 2014 [facility] Neuromuscular Re-education Physical Therapy Neuromuscular Re-education 85058 2014 [facility] Physical Therapy: ___ Se ion Segments, 15 Minutes Each Physical Therapy: ___ Session Segments, 15 Minutes Each 68883 2014 [facility] Modalities Cryotherapy Cold Packs Modalities Cryotherapy Cold Packs 57179 2014 [facility] Physical [facility] Neuromuscular Re-education Physical Therapy Neuromuscular Re-education 00770 2014 [facility] Physical Therapy: ___ Se ion Segments, 15 Minutes Each Physical Therapy: ___ Session Segments, 15 Minutes Each 56827 2014 [facility] Physical Therapy Neuromuscular Re-education Physical Therapy Neuromuscular Re-education 19398 2014 [facility] Physical Therapy: ___ Se ion Segments, 15 Minutes Each Physical Therapy: ___ Session Segments, 15 Minutes Each 88114 2014 [facility] Physical Therapy: ___ Se ion Segments, 15 Minutes Each Physical Therapy: ___ Session Segments, 15 Minutes Each 44440 2014 CORINA PATETRSON [facility] Physical Medicine Physical Therapy Evaluation Physical Medicine Physical Therapy Evaluation 36920 2014 CORINA PATTERSON Karen [facility] Immunization Admin By Intranasal / Oral Route One Vaccine Immunization Admin By Intranasal / Oral Route One Vaccine 30529 2014 POLLY ANNIA L [facility] Health And Behav A e mt Each 15 Min Initial A e ment Health And Behav Assessmt Each 15 Min Initial Assessment 95803 2013 FRED MENARD [facility] Threshold Audiogram (Pure Tone) Threshold Audiogram (Pure Tone) 20879 2013 OLLIE LAYNE H-1 hearing test within normal limits, no significant threshold shift. [facility] Venipuncture Venipuncture 75612 2013 PILOLA, NADYA P Specimen obtained from left ante-cubital area. [facility] Parenteral Fluids IV Infusion Parenteral Fluids IV Infusion 51183 2013 YE RAI give 1 liter of normal saline [facility] Influenza Split Virus Vaccine Age 3+ Years Intramuscular 2012 VINCENT OSUNA [facility] Immunization Administration One Vaccine Immunization Administration One Vaccine 51719 2012 VINCENT OSUNA [facility] Threshold Audiogram (Pure Tone) Threshold Audiogram (Pure Tone) 78301 2012 CARDOUG MCKEONRILexis Richards Normal H-1 Hearing Test With No Significant Threshold Shift. [facility] Physical Medicine Physical Therapy Evaluation Physical Medicine Physical Therapy Evaluation 91574 2012 IRON STEVENS [facility] Physical Therapy: ___ Se ion Segments, 15 Minutes Each Physical Therapy: ___ Session Segments, 15 Minutes Each 18238 2012 IRON STEVENS Crutches, forearm, includes crutches of various materials, adjustable or fixed, pair, complete with tips and handgrips 2012 WENDY GUTHRIE [facility] Hepatitis A Vaccine Adult Dosage (Intramuscular Use) Hepatitis A Vaccine Adult Dosage (Intramuscular Use) 33706 2012 ARABELLA BARAHONA Hep A (Adult); Series #: 2; 1.0 mL; IM; Right Arm; g: Jobydu; Lot: [id number]; VIS given (Deepti: 07/27/11). [facility] Immunization Administration One Vaccine Immunization Administration One Vaccine 78473 2012 ARABELLA BARAHONA [facility] Medical Nutrition Therapy Group (2 or More Individual(s)) Medical Nutrition Therapy Group (2 or More Individual(s)) 48257 2012 RACHELLEVARGAS J 0900 . DoD A e ment & Intervention Blood Pre ure Measured Assessment & Intervention Blood Pressure Measured 2012 BARRERA DANAJERMAINE LEHMAN DoD Immunization Admin Intranasal / Oral Each Additional Vaccine Immunization Admin Intranasal / Oral Each Additional Vaccine 41538 2011 NEENA DELUNA DoD Vaccines Adenovirus Type 4 Live, For Oral Use Vaccines Adenovirus Type 4 Live, For Oral Use 03705 2011 NEENA DELUNA A single vaccine dose was adminstered orally. DoD Vaccines Adenovirus Type 7 Live, For Oral Use Vaccines Adenovirus Type 7 Live, For Oral Use 64965 2011 NEENA DELUNA A single vaccine dose was adminstered orally. DoD Immunization Admin By Intranasal / Oral Route One Vaccine Immunization Admin By Intranasal / Oral Route One Vaccine 08224 2011 NEENA DELUNA [facility] Influenza Virus Vaccine Live Intranasal 2011 NEENA DELUNA flumist: Each sprayer contains a single dose of Flumist; approximately one-half of the contents was administered into each nostril. Patient was observed for 15 min with no adverse reactions DoD Skin Test Anergy Tuberculin Intradermal Skin Test Anergy Tuberculin Intradermal 37092 2011 NEENA DELUNA Visit for intradermal tuberculin testing of 0.1mL of Mantoux (Tuberculin Purified Protein Derivative). Was given in the Left forearm, volar surface. Patient was observed for 15 min with no adverse reactions.[ DoD Meningococcal Polysacch Diphtheria Toxoid Conjugate Vaccine 2011 NEENA DELUNA Visit for an IM injection of 0.5mL of Meningococcal Vaccine (Menactra). Was given in the Left Deltoid. Patient was observed for 15 min with no adverse reactions. DoD Vaccines Viral Polio, Inactivated (Salk) Vaccines Viral Polio, Inactivated (Salk) 04303 2011 NEENA DELUNA Visit for an IM injection of 0.5mL of IPOL (Poliovirus Vaccine Inactivated). Was given in the Right Deltoid. Patient was observed for 15 min with no adverse reactions. DoD Hepatitis A Vaccine Adult Dosage (Intramuscular Use) Hepatitis A Vaccine Adult Dosage (Intramuscular Use) 06060 2011 NEENA DELUNA Visit for an IM injection of 1mL of Hepatitis A (Havrix). Was given in the Right Deltoid. Patient was observed for 15 min with no adverse reactions. [facility] Immunization Administration One Vaccine Immunization Administration One Vaccine 34332 2011 NEENA DELUNA [facility] Immunization Administration Each Additional Vaccine 2011 NEENA DELUNA [facility] Tdap Vaccine Tdap Vaccine 29678 2011 NEENA DELUNA Visit for an IM injection of 0.5mL of Boostrix (Tetanus and Diphtheria Toxoids and Acellular Pertussis). Was given in the Right Deltoid. Patient was observed for 15 min with no adverse reactions. [facility] Audiometry Group Testing Audiometry Group Testing 75429 2011 NURY BERMUDEZ [facility] Visual Function Screening Visual Function Screening [id number] 2011 LILIA RICHARDS [facility] Immunization Admin By Intranasal / Oral Route One Vaccine Immunization Admin By Intranasal / Oral Route One Vaccine [id number] 2015 JOSELUIS GARNER [facility] Physical Medicine Physical Therapy Re-Evaluation Physical Medicine Physical Therapy Re-Evaluation [id number] 2014 EUGENE MOSS [facility] Physical Therapy Mobilization Joint Physical Therapy Mobilization Joint 30907 2014 LEONEL FISH [facility] Physical Therapy Neuromuscular Re-education Physical Therapy Neuromuscular Re-education 14136 2014 LEONEL FISH [facility] Physical Therapy: ___ Se ion Segments, 15 Minutes Each Physical Therapy: ___ Session Segments, 15 Minutes Each [id number] 2014 LEONEL FISH [facility] Threshold Audiogram (Pure Tone) Threshold Audiogram (Pure Tone) 60785 2014 VINCENT OSUNA [facility] Screening Test Of Visual Acuity, Quantitative, Bilateral Screening Test Of Visual Acuity, Quantitative, Bilateral 41221 2014 CHAU AMBRIZ [facility] Physical Therapy Neuromuscular Re-education Physical Therapy Neuromuscular Re-education 73310 2014 LEONEL FISH [facility] Physical Therapy: ___ Se ion Segments, 15 Minutes Each Physical Therapy: ___ Session Segments, 15 Minutes Each [id number] 2014 LEONEL FISH [facility] Physical Therapy Mobilization Joint Physical Therapy Mobilization Joint 52955 2014 LEONEL FISH [facility] Physical Therapy Neuromuscular Re-education Physical Therapy Neuromuscular Re-education 47280 2014 FAUSTO FISHALLYSON Mendez [facility] Physical Therapy: ___ Se ion Segments, 15 Minutes Each Physical Therapy: ___ Session Segments, 15 Minutes Each [id number] 2014 FAUSTO FISHALLYSON Mendez [facility] Physical Therapy Mobilization Joint Physical Therapy Mobilization Joint 29932 2014 FAUSTO FISHALLYSON Mendez [facility] Physical Therapy Neuromuscular Re-education Physical Therapy Neuromuscular Re-education 23543 2014 JANETTEFAUSTO RodriguezALLYSON Mendez [facility] Physical Therapy: ___ Se ion Segments, 15 Minutes Each Physical Therapy: ___ Session Segments, 15 Minutes Each [id number] 2014 FAUSTO FISHALLYSON Mendez [facility] Physical Medicine Physical Therapy Re-Evaluation Physical Medicine Physical Therapy Re-Evaluation 27316 2014 EUGENE MOSS [facility] Non-Physician Phone Call To Pt/Provider Intermed (11-20 min) Non-Physician Phone Call To Pt/Provider Intermed (11-20 min) [id number] 2014 TWIN CROSS [facility] Physical Therapy Mobilization Joint Physical Therapy Mobilization Joint 66853 2014 ALEJANDRINA HERNANDEZ [facility] Physical Therapy: ___ Se ion Segments, 15 Minutes Each Physical Therapy: ___ Session Segments, 15 Minutes Each [id number] 2014 ALEJANDRINA HERNANDEZ [facility] Physical Therapy Mobilization Joint Physical Therapy Mobilization Joint 76503 2014 ALEJANDRINA HERNANDEZ [facility] Physical Therapy: ___ Se ion Segments, 15 Minutes Each Physical Therapy: ___ Session Segments, 15 Minutes Each [id number] 2014 ALEJANDRINA HERNANDEZ [facility] Non-Physician Phone Call To Pt/Provider Intermed (11-20 min) Non-Physician Phone Call To Pt/Provider Intermed (11-20 min) 49726 2014 TWIN CROSS [facility] Physical Therapy Mobilization Joint Physical Therapy Mobilization Joint 90074 2014 LEONEL FISH [facility] Physical Therapy: ___ Se ion Segments, 15 Minutes Each Physical Therapy: ___ Session Segments, 15 Minutes Each [id number] 2014 LEONEL FISH [facility] Non-Physician Phone Call To Pt/Provider Intermed (11-20 min) Non-Physician Phone Call To Pt/Provider Intermed (11-20 min) 32549 2014 TWIN CROSS [facility] Mobilization Soft Ti ue Mobilization Soft Tissue 41396 2014 EUGENE MOSS [facility] Physical Medicine Physical Therapy Re-Evaluation Physical Medicine Physical Therapy Re-Evaluation 55539 2014 EUGENE MOSS [facility] Psychiatric Therapy Individual Approximately 20-30 Minutes 2014 FRED MENARD [facility] Physical Therapy Mobilization Joint Physical Therapy Mobilization Joint 63737 2014 LAURAMYA BARRETO [facility] Physical Therapy: ___ Se ion Segments, 15 Minutes Each Physical Therapy: ___ Session Segments, 15 Minutes Each [id number] 2014 LAURAMYA BARRETO [facility] Physical Therapy Mobilization Joint Physical Therapy Mobilization Joint 73572 2014 [place] WORTHMYA [facility] Physical Therapy: ___ Se ion Segments, 15 Minutes Each Physical Therapy: ___ Session Segments, 15 Minutes Each [id number] 2014 MYA SANCHEZ [facility] Modalities Cryotherapy Cold Packs Modalities Cryotherapy Cold Packs 55161 2014 KYLER ROD [facility] Physical Therapy Mobilization Joint Physical Therapy Mobilization Joint 04858 2014 KYLER ROD [facility] Physical Therapy: ___ Se ion Segments, 15 Minutes Each Physical Therapy: ___ Session Segments, 15 Minutes Each 65550 2014 KYLER ROD [facility] Physical Therapy Mobilization Joint Physical Therapy Mobilization Joint 01261 2014 KYLER ROD [facility] Physical Therapy: ___ Se ion Segments, 15 Minutes Each Physical Therapy: ___ Session Segments, 15 Minutes Each [id number] 2014 KYLER ROD [facility] Modalities Cryotherapy Cold Packs Modalities Cryotherapy Cold Packs 53693 2014 KYLER ROD [facility] Physical Therapy Mobilization Joint Physical Therapy Mobilization Joint 06232 2014 KYLER ROD [facility] Physical Therapy: ___ Se ion Segments, 15 Minutes Each Physical Therapy: ___ Session Segments, 15 Minutes Each [id number] 2014 KYLER ROD [facility] Mobilization Soft Ti ue Mobilization Soft Tissue 33393 2014 EUGENE MOSS [facility] Physical Medicine Physical Therapy Re-Evaluation Physical Medicine Physical Therapy Re-Evaluation 11437 2014 EUGENE MOSS [facility] Physical Therapy Mobilization Joint Physical Therapy Mobilization Joint 60626 2014 [facility]LEONEL RECIO Andrea [facility] Physical Therapy: ___ Se ion Segments, 15 Minutes Each Physical Therapy: ___ Session Segments, 15 Minutes Each 57794 2014 [facility] Andrea [facility] Physical Therapy Mobilization Joint Physical Therapy Mobilization Joint 40655 2014 [facility] Physical Therapy: ___ Se ion Segments, 15 Minutes Each Physical Therapy: ___ Session Segments, 15 Minutes Each [id number] 2014 JANETTELEONEL oRdriguez Andrea [facility] Physical Therapy Mobilization Joint Physical Therapy Mobilization Joint 93667 2014 [facility] Rodriguez Andrea [facility] Physical Therapy: ___ Se ion Segments, 15 Minutes Each Physical Therapy: ___ Session Segments, 15 Minutes Each [id number] 2014 [facility] Andrea [facility] Physical Therapy Mobilization Joint Physical Therapy Mobilization Joint 04792 2014 [facility] Physical Therapy: ___ Se ion Segments, 15 Minutes Each Physical Therapy: ___ Session Segments, 15 Minutes Each [id number] 2014 JANETTELEONEL Rodriguez Andrea [facility] Physical Therapy Mobilization Joint Physical Therapy Mobilization Joint 12860 2014 KYLER ROD [facility] Physical Therapy: ___ Se ion Segments, 15 Minutes Each Physical Therapy: ___ Session Segments, 15 Minutes Each 13859 2014 KYLER ROD [facility] Exercise equipment 2014 ROMEO CASTILLO [facility] Physical Therapy Mobilization Joint Physical Therapy Mobilization Joint 99944 2014 ROMEO CASTILLO [facility] Physical Therapy: ___ Se ion Segments, 15 Minutes Each Physical Therapy: ___ Session Segments, 15 Minutes Each 59075 2014 ROMEO CASTILLO [facility] Physical Therapy: ___ Se ion Segments, 15 Minutes Each Physical Therapy: ___ Session Segments, 15 Minutes Each [id number] 2014 EUGENE MOSS [facility] Mobilization Soft Ti ue Mobilization Soft Tissue 74558 2014 EUGENE MOSS [facility] Physical Medicine Physical Therapy Re-Evaluation Physical Medicine Physical Therapy Re-Evaluation 32661 2014 EUGENE MOSS [facility] Modalities Cryotherapy Cold Packs Modalities Cryotherapy Cold Packs 69567 2014 ROMEO CASTILLO [facility] Physical Therapy: ___ Se ion Segments, 15 Minutes Each Physical Therapy: ___ Session Segments, 15 Minutes Each [id number] 2014 ROMEO CASTILLO Modalities Cryotherapy Cold Packs Modalities Cryotherapy Cold Packs 87636 2014 ROMEO CASTILLO [facility] Physical Therapy: ___ Se ion Segments, 15 Minutes Each Physical Therapy: ___ Session Segments, 15 Minutes Each 67028 2014 ROMEO CASTILLO [facility] Modalities Cryotherapy Cold Packs Modalities Cryotherapy Cold Packs 50617 2014 ROMEO CASTILLO [facility] Physical Therapy Mobilization Joint Physical Therapy Mobilization Joint 03486 2014 ROMEO CASTILLO [facility] Physical Therapy: ___ Se ion Segments, 15 Minutes Each Physical Therapy: ___ Session Segments, 15 Minutes Each [id number] 2014 ROMEO CASTILLO [facility] Modalities Cryotherapy Cold Packs Modalities Cryotherapy Cold Packs 46244 2014 SERGIO SIMPSON [facility] Modalities Cryotherapy Cold Packs Modalities Cryotherapy Cold Packs 43465 2014 CHARLENE PRECIADO Physical Therapy Mobilization Joint Physical Therapy Mobilization Joint 57054 2014 CHARLENE PRECIADO [facility] Physical Therapy: ___ Se ion Segments, 15 Minutes Each Physical Therapy: ___ Session Segments, 15 Minutes Each 57557 2014 CHARLENE PRECIADO Physical Therapy Mobilization Joint Physical Therapy Mobilization Joint 79598 2014 KYLER ROD Physical Therapy: ___ Se ion Segments, 15 Minutes Each Physical Therapy: ___ Session Segments, 15 Minutes Each [id number] 2014 KYLER ROD Mobilization Soft Ti ue Mobilization Soft Tissue 78795 2014 EUGENE MOSS [facility] Physical Therapy: ___ Se ion Segments, 15 Minutes Each Physical Therapy: ___ Session Segments, 15 Minutes Each 21575 2014 VIJAYDEWEYEUGENE [facility] Physical Medicine Physical Therapy Evaluation Physical Medicine Physical Therapy Evaluation 08885 2014 ISAEUGENE Mee [facility] Modalities Cryotherapy Cold Packs Modalities Cryotherapy Cold Packs 17164 2014 CORINA PATTERSON [facility] Physical Therapy Neuromuscular Re-education Physical Therapy Neuromuscular Re-education 73712 2014 CORINA PATTERSON [facility] Physical Therapy: ___ Se ion Segments, 15 Minutes Each Physical Therapy: ___ Session Segments, 15 Minutes Each [id number] 2014 CORINA PATTERSON [facility] Phys Therapy Education Self Care Training - Per 15 Minutes Phys Therapy Education Self Care Training - Per 15 Minutes 78851 2014 CORINA PATTERSON [facility] Physical Medicine Physical Therapy Re-Evaluation Physical Medicine Physical Therapy Re-Evaluation 85203 2014 CORINA PATTERSON [facility] Physical Therapy Neuromuscular Re-education Physical Therapy Neuromuscular Re-education 80439 2014 [facility] Rodriguez [facility] Physical Therapy: ___ Se ion Segments, 15 Minutes Each Physical Therapy: ___ Session Segments, 15 Minutes Each [id number] 2014 [facility] RodriguezOLIS H [facility] Physical Therapy Neuromuscular Re-education Physical Therapy Neuromuscular Re-education 44620 2014 Y[facility]ERLY [facility] Rodriguez H [facility] Physical Therapy: ___ Se ion Segments, 15 Minutes Each Physical Therapy: ___ Session Segments, 15 Minutes Each [id number] 2014 JANETTELEONEL Rodriguez H [facility] Modalities Cryotherapy Cold Packs Modalities Cryotherapy Cold Packs 40387 2014 [facility] RodriguezOLIS [facility] Physical Therapy Neuromuscular Re-education Physical Therapy Neuromuscular Re-education 24289 2014 [facility] RodriguezOLIS H [facility] Physical Therapy: ___ Se ion Segments, 15 Minutes Each Physical Therapy: ___ Session Segments, 15 Minutes Each [id number] 2014 LEONEL FISH H [facility] Modalities Cryotherapy Cold Packs Modalities Cryotherapy Cold Packs 81325 2014 [facility] RodriguezOLIS H [facility] Physical Therapy Neuromuscular Re-education Physical Therapy Neuromuscular Re-education 88986 2014 [facility] Rodriguez H [facility] Physical Therapy: ___ Se ion Segments, 15 Minutes Each Physical Therapy: ___ Session Segments, 15 Minutes Each [id number] 2014 [facility] Modalities Cryotherapy Cold Packs Modalities Cryotherapy Cold Packs 38115 2014 [facility] Physical Therapy Neuromuscular Re-education Physical Therapy Neuromuscular Re-education 12051 2014 [facility] Physical Therapy: ___ Se ion Segments, 15 Minutes Each Physical Therapy: ___ Session Segments, 15 Minutes Each [id number] 2014 [facility] Physical Therapy Mobilization Joint Physical Therapy Mobilization Joint 49914 2014 [facility] Physical Therapy: ___ Se ion Segments, 15 Minutes Each Physical Therapy: ___ Session Segments, 15 Minutes Each [id number] 2014 [facility] Rodriguez [facility] Physical Therapy: ___ Se ion Segments, 15 Minutes Each Physical Therapy: ___ Session Segments, 15 Minutes Each 88468 2014 CORINA PATTERSON [facility] Physical Medicine Physical Therapy Evaluation Physical Medicine Physical Therapy Evaluation 60825 2014 CORINA PATTERSON [facility] Physical Therapy Neuromuscular Re-education Physical Therapy Neuromuscular Re-education 62830 2014 [facility] Physical Therapy: ___ Se ion Segments, 15 Minutes Each Physical Therapy: ___ Session Segments, 15 Minutes Each 41809 2014 [facility] RodriguezALLYS[facility] Physical Therapy Neuromuscular Re-education Physical Therapy Neuromuscular Re-education 46920 2014 [facility] Social History Combined list of available smoking, tobacco, and other social history from Department of Defense and Veterans Affairs facilities. Social History Type Response Date Comment Sourc e Tobacco smoking status NHIS LIFETIME NON-TOBACCO USER 12/11/2015 [facility] This section is an empty social history section. DoD Plan of Care List of future care activities from Department of Veterans Affairs facilities. Additional future care activities may be listed in the Assessment and Plan section. Date/Time Care Activity Care Activity Detail Facili ty 02/15/2025 AMBULATORY - PSYCHIATRY AMBULATORY - PS[facility]C [facility] [place] [facility] Advance Directives List of completed, amended, or rescinded Advance Directives on record at Department of [facility] facilities. An actual copy of the Directive is not included. Date Advance Directive Provider Source 01/02/2025 ADVANCE DIRECTIVE DISCUSSION PEGGY REARD[facility]
--- NOTE | 2025-02-13 16:10 | MHC.OFFVIS ---
Intake Visit Reasons: MAT Allergies Penicillins Allergy (Unknown, Verified 02/13/25 16:12) Unknown HPI HPI MAT: Details: He is doing well. [facility] Medical History Cocaine use disorder Opioid use disorder, moderate, in early remission Review of Systems Const All systems reviewed & are unremarkable except as noted in HPI and below Physical Exam Const General: cooperative Results AMB 14 Panel Urine Drug Screen Urine Marijuana (THC) Negative Last Edit by Des Hampton CMA on 02/13/25 16:13 Urine Cocaine Positive Last Edit by Des Hampton CMA on 02/13/25 16:13 Urine Morphine Negative Last Edit by Des Hampton CMA on 02/13/25 16:13 Urine Methamphetamine Negative Last Edit by Des Hampton CMA on 02/13/25 16:13 Urine Amphetamine Negative Last Edit by Des Hampton CMA on 02/13/25 16:13 Urine Benzodiazepine Negative Last Edit by Des Hampton CMA on 02/13/25 16:13 Urine Barbiturates Negative Last Edit by Des Hampton CMA on 02/13/25 16:13 Urine Methadone Negative Last Edit by Des Hampton CMA on 02/13/25 16:13 Urine Buprenorphine Positive Last Edit by Des Hampton CMA on 02/13/25 16:13 Urine Tricyclic Antidepressant Negative Last Edit by Des Hampton CMA on 02/13/25 16:13 Urine MDMA Negative Last Edit by Des Hampton CMA on 02/13/25 16:13 Urine Oxycodone Negative Last Edit by Des Hampton CMA on 02/13/25 16:13 Urine Phencyclidine Negative Last Edit by Des Hampton CMA on 02/13/25 16:13 Urine Propoxyphene Negative Last Edit by Des Hampton CMA on 02/13/25 16:13 Results Reviewed Results Reviewed: Laboratory Last Values POC Urine Buprenorphine Positive 02/13/25 16:10 POC Urine Morphine Negative 02/13/25 16:10 POC Urine Oxycodone Negative 02/13/25 16:10 POC Urine Methadone Negative 02/13/25 16:10 POC Urine Propoxyphene Negative 02/13/25 16:10 POC Urine Barbiturates Negative 02/13/25 16:10 POC U Tricyclic Antidpr Negative 02/13/25 16:10 POC Urine PCP Negative 02/13/25 16:10 POC Ur Amphetamines Negative 02/13/25 16:10 POC Ur Methamphetamine Negative 02/13/25 16:10 POC Urine MDMA Negative 02/13/25 16:10 POC Ur Benzodiazepine Negative 02/13/25 16:10 POC Urine Cocaine Positive 02/13/25 16:10 POC Ur Marijuana (THC) Negative 02/13/25 16:10 Assessment & Plan Assessment & Plan (1) Cocaine use disorder: Comment: consider Welbutrin,topamax next visit,for now clonidine and vistaril may help. Code(s): F14.10 - Cocaine abuse, uncomplicated Category: Medical Plan: relapse,welbutrin and topamax not given today,patient shaky an doesnt want another med (2) Opioid use disorder, moderate, in early remission: Comment: He is doing well. Do labs See in one week and give Sublocade when able. Code(s): F11.21 - Opioid dependence, in remission Category: Medical Plan na Orders: Orders AMB 14 Panel Urine Drug Screen Today Z51.81 - Encounter for therapeutic drug level monitoring Medications: New buprenorphine-naloxone 8-2 mg (Suboxone) 2 film sublingual DAILY 60 ea 0RF 30 days Coding Level of Care Code Est Pt Level 3 (82615) Diagnoses Cocaine use disorder F14.10 Opioid use disorder, moderate, in early remission F11.21
== END 2025-02-13 16:00 | disposition home or self-care (01) ==
LOC: HO.HCC 14:56
PROVIDERS: Visit Provider Internal Medicine
DX: F14.10 Cocaine abuse, uncomplicated (principal); F11.21 Opioid dependence, in remission
CPT/HCPCS: 99213

== ENCOUNTER → 2025-02-13 14:56 | Outpatient (BNVA) | payer OTHER, SELFPAY | PROVIDERS: Visit Provider Internal Medicine | DX: F14.10 Cocaine abuse, uncomplicated (principal); F11.21 Opioid dependence, in remission | CPT/HCPCS: 80307 ==

== ENCOUNTER 2025-03-13 12:56 | Outpatient (AMB) | payer OTHER, SELFPAY ==
[2025-03-13 13:01] VITALS: PULSE 123; O2SAT 98
--- NOTE | 2025-03-13 13:01 | MHC.OFFVIS ---
Vital Signs 03/13/25 13:01 Height 6 ft Pulse 123 H Pulse Source Pulse Oximeter Pulse Oximetry (%) 98 Oxygen Delivery Method Room Air Intake Visit Reasons: MAT Allergies Penicillins Allergy (Unknown, Verified 03/13/25 13:32) Unknown HPI HPI MAT: Details: He was taking three instead of two a day and not getting much benefit. He wants Sublocade and was denied twice and costs $3,000. [facility] Medical History Cocaine use disorder Opioid use disorder, moderate, in early remission Review of Systems Const All systems reviewed & are unremarkable except as noted in HPI and below Physical Exam Vital Signs: Last Vital Signs Pulse 123 H 03/13/25 13:01 Pulse Ox 98 03/13/25 13:01 Oxygen Delivery Method Room Air 03/13/25 13:01 Assessment & Plan Assessment & Plan (1) Cocaine use disorder: Comment: consider Welbutrin,topamax next visit,for now clonidine and vistaril may help. He said not using at this time. Code(s): F14.10 - Cocaine abuse, uncomplicated Category: Medical (2) Opioid use disorder, moderate, in early remission: Comment: He is doing well. Do labs See in one week and give Sublocade when able. Code(s): F11.21 - Opioid dependence, in remission Category: Medical Plan na Medications: New buprenorphine-naloxone 8-2 mg (Suboxone) 1 film sublingual BID 60 ea 0RF 30 days Coding Level of Care Code Est Pt Level 3 (67183) Diagnoses Cocaine use disorder F14.10 Opioid use disorder, moderate, in early remission F11.21
== END 2025-03-13 14:04 | disposition home or self-care (01) ==
LOC: HO.HCC 12:56
PROVIDERS: Visit Provider Internal Medicine
DX: F14.10 Cocaine abuse, uncomplicated (principal); F11.21 Opioid dependence, in remission
CPT/HCPCS: 99213

== ENCOUNTER → 2025-03-13 12:56 | Outpatient (BNVA) | payer OTHER, SELFPAY | PROVIDERS: Visit Provider Internal Medicine ==

== ENCOUNTER 2025-05-14 09:46 | Outpatient (AMB) | payer OTHER, SELFPAY ==
[2025-05-14 09:51] VITALS: BP 100/60; PULSE 88; O2SAT 96; BMI 27.1
--- NOTE | 2025-05-14 09:51 | A.OFFVIS_ITS ---
Vital Signs 05/14/25 09:51 Height 6 ft Weight 200 lb BMI 27.1 BP 100/60 Pulse 88 Pulse Oximetry (%) 96 Intake Visit Reasons: MAT Allergies Penicillins Allergy (Unknown, Verified 05/14/25 09:52) Unknown Medication List - Last Reconciled 05/14/25 by DNIA Pino buprenorphine ER (Sublocade) 300 mg (1.5 mL) subcut ONCE 2 doses clonidine HCl 0.1 mg PO TID PRN 10 days doxepin 10 mg PO DAILY hydroxyzine pamoate 25 mg PO BEDTIME 10 days ibuprofen 200 mg PO Q6H PRN HPI Comments Details: The patient is a 40-year-old male presents for follow-up visit r/t BERENICE. Reports losing track of appointment and not having buprenorphine-naloxone 8-2 mg available and took fentanyl. The patient states he is looking to restart the buprenorphine-naloxone and is aware of needing to wait a minimum of 24 hours before resuming to minimize precipitated withdrawals. 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 Denies use of alcohol, smoking, vaping, and cannabis use. [facility] Medical History Cocaine use disorder Opioid use disorder, moderate, in early remission Review of Systems Const All systems reviewed & are unremarkable except as noted in HPI and below Physical Exam Vital Signs: Last Vital Signs Pulse 88 05/14/25 09:51 BP 100/60 05/14/25 09:51 Pulse Ox 96 05/14/25 09:51 BMI result Body Mass Index 27.1 Const General: cooperative Nutritional Appearance: average body habitus Limitations: no limitations Psych Appearance: well kempt Mental Status: mental status grossly normal Speech and movement: Normal speech and movement present Affect: normal affect Attitude: cooperative Thought process: Normal thought process present Thought content: Normal thought content present Insight: Fair insight present (Psych) Judgement: Fair judgement present (Psych) Assessment & Plan Assessment & Plan (1) Opioid use disorder, moderate, dependence: Code(s): F11.20 - Opioid dependence, uncomplicated Category: Medical Plan The plan of care is to re-start on buprenorphine-naloxone 8-2 mg BID. Education provided re: importance of waiting a minimal of 24 hours since last fentanyl use before taking buprenorphine-naloxone. Narcan provided and encouraged to contact local behavioral services in the area. Clonidine refilled to assist with symptoms of agitation. Medications: New buprenorphine-naloxone 8-2 mg (Suboxone) Place 1 film on inside of (each) cheek, twice per day. 1 film sublingual BID 60 ea 0RF 30 days clonidine HCl Take one tablet by mouth twice per day as needed for symptoms of agitation. 0.1 mg PO BID PRN 60 tabs 0RF Agitation 30 days Patient Instructions: - Restart buprenorphine-naloxone 8-2 mg twice per day, wait a minimum of 24 hours since last fentanyl use. - Continue with clonidine 0.1 mg twice per day for symptoms of agitation. - Encouraged to follow up with local behavioral health services to initiate care. - Follow up in a month or sooner, if needed. - Call with questions, concerns, or to report side effects/new onset of symptoms to [facility]. - The patient verbalized understanding and agreed with plan of care. Coding Level of Care Code Est Pt Level 4 (33728) Diagnoses Opioid use disorder, moderate, dependence F11.20
== END 2025-05-14 10:04 | disposition home or self-care (01) ==
PROVIDERS: Visit Provider Clinical Nurse Specialist Psychiatric/Mental Health
DX: F11.20 Opioid dependence, uncomplicated (principal)
CPT/HCPCS: 99214

== ENCOUNTER 2025-07-02 08:31 | Outpatient (AMB) | payer OTHER, SELFPAY ==
[2025-07-02 08:36] VITALS: BP 116/60; PULSE 56; O2SAT 96; BMI 27.7
--- NOTE | 2025-07-02 08:36 | MHC.OFFVIS ---
Vital Signs 07/02/25 08:36 Height 6 ft Weight 204 lb BMI 27.7 BP 116/60 Pulse 56 Pulse Oximetry (%) 96 Intake Visit Reasons: MAT Allergies Penicillins Allergy (Unknown, Verified 07/02/25 08:38) Unknown Medication List - Last Reconciled 07/02/25 by ANGEL PinoC buprenorphine-naloxone 8-2 mg (Suboxone) 1 film sublingual BID 30 days clonidine HCl 0.1 mg PO BID PRN 30 days doxepin 10 mg PO DAILY hydroxyzine pamoate 25 mg PO BEDTIME 10 days ibuprofen 200 mg PO Q6H PRN HPI Comments Details: The patient is a 40-year-old male presenting for a follow up r/t BERENICE. The patient voluntarily reported using fentanyl twice, mainly triggered by running out of buprenorphine-naloxone. The patient understands the necessity of maintaining communication to avoid depletion. The patient acknowledged comprehending the essential 24-hour waiting period before restarting buprenorphine-naloxone after fentanyl use. There has been a positive discussion regarding connecting the patient with community resources and mental health services for added support. The patient has shown an understanding and acceptance of the outlined plan of care. [facility] Medical History Cocaine use disorder Opioid use disorder, moderate, in early remission Physical Exam Vital Signs: Last Vital Signs Pulse 56 07/02/25 08:36 BP 116/60 07/02/25 08:36 Pulse Ox 96 07/02/25 08:36 BMI result Body Mass Index 27.7 Assessment & Plan Assessment & Plan (1) Opioid use disorder, moderate, dependence: Code(s): F11.20 - Opioid dependence, uncomplicated Category: Medical Plan The plan of care is to restart buprenorphine-naloxone 8-2 mg BID after a 24 hour waiting period post fentanyl use. Education provided on importance of following up with scheduled appointments and calling [facility] to notify and requests refill until next follow-up appointment. A referral to [facility] for mental health services has been arranged. Additional information provided on community resources. Medications: Refilled buprenorphine-naloxone 8-2 mg (Suboxone) Place 1 film on inside of (each) cheek, twice per day. 1 film sublingual BID 60 ea 0RF 30 days clonidine HCl Take one tablet by mouth twice per day as needed for symptoms of agitation. 0.1 mg PO BID PRN 60 tabs 0RF Agitation 30 days Patient Instructions: - Call ahead if you're running out of medication. - Wait 24 hours after using fentanyl before taking buprenorphine-naloxone as prescribed. - Continue with clonidine as needed for agitation. - Patient has Narcan available to him and additional education provided on use. - Follow-up in 1 month or sooner if needed. - Call with questions, concerns, or to report side effects/new onset of symptoms to [facility]. - The patient verbalized understanding and agreed with plan of care. Coding Level of Care Code Est Pt Level 3 (31251) Diagnoses Opioid use disorder, moderate, dependence F11.20
== END 2025-07-02 08:55 | disposition home or self-care (01) ==
LOC: HO.HCC 08:31
PROVIDERS: Visit Provider Clinical Nurse Specialist Psychiatric/Mental Health
DX: F11.20 Opioid dependence, uncomplicated (principal)
CPT/HCPCS: 99213

== ENCOUNTER 2025-08-01 08:41 | Outpatient (AMB) | payer OTHER, SELFPAY ==
--- NOTE | 2025-08-01 08:56 | A.OFFVISCC_ITS ---
Vital Signs 08/01/25 08:58 Height 6 ft Weight 210 lb BMI 28.5 BP 120/68 Pulse 78 Pulse Oximetry (%) 98 Intake Visit Reasons: MAT Allergies Penicillins Allergy (Unknown, Verified 08/01/25 08:59) Unknown HPI Comments Details: A 40-year-old male presents for follow-up visit r/t BERENICE in sustained remission with buprenorphine-naloxone 8-2 mg BID. Denies use of opiates, fentanyl, alcohol, and other substances. 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 Review of Systems Const All systems reviewed & are unremarkable except as noted in HPI and below Physical Exam Const General: cooperative [facility] Medical History Cocaine use disorder Opioid use disorder, moderate, in early remission Assessment & Plan Assessment & Plan (1) Opioid use disorder, moderate, in early remission: Comment: Doing well Code(s): F11.21 - Opioid dependence, in remission Category: Medical Plan The plan of care is to continue with buprenorphine-naloxone 8-2 mg BID and clonidine 0.1 mg BID (as needed). Follow-up in 2 months or sooner if needed. Medications: Changed From buprenorphine-naloxone 8-2 mg (Suboxone) Place 1 film on inside of (each) cheek, twice per day. 1 film sublingual BID 30 days 60 ea 0RF To buprenorphine-naloxone 8-2 mg (Suboxone) Place 1 film sublingually twice per day 1 film sublingual BID 60 ea 1RF 30 days Refilled clonidine HCl Take one tablet by mouth twice per day as needed for symptoms of agitation. 0.1 mg PO BID PRN 60 tabs 1RF Agitation 30 days Patient Instructions: - Continue with buprenorphine-naloxone and clonidine as prescribed. - Follow-up in 2 months or sooner if needed. - Call with questions, concerns, or to report side effects/new onset of symptoms to [facility]. - The patient verbalized understanding and agreed with plan of care.
[2025-08-01 08:58] VITALS: BP 120/68; PULSE 78; O2SAT 98; BMI 28.5
== END 2025-08-01 08:56 | disposition home or self-care (01) ==
LOC: HO.HCC 08:41
PROVIDERS: Visit Provider Clinical Nurse Specialist Psychiatric/Mental Health
DX: F11.21 Opioid dependence, in remission (principal)
CPT/HCPCS: 99213